=== PATIENT | male | born 1935 | race Caucasian/White ===

== ENCOUNTER 2017-10-22 21:32 | Inpatient (IN) | payer MEDICARE, BC ==
[~2017-10-22] VITALS: Ht 172.7 cm; Wt 99.8 kg
[~2017-10-22 21:32] MED LIST: ASPIRIN EC81 MG PO; BENICAR HCT 401 EAC1 PO; CIALIS5 MG PO; CRESTOR10 MG PO; FERROUS SULFAT325 MG PO; FLAGYL250 MG PO; GLYBURID-METFO1 EAC3 PO; GLYBURIDE; LEVAQUIN500 MG PO; LYRICA75 MG PO; MULTI-VITAMIN1 EACH PO; Z.0.CRESTOR5 MG; Z.0.CRESTOR5 MG PO; Z.2.METFORMIN HCL500 PO; [UNRECOGNIZED DRUG - OTHER] PO
[2017-10-22 21:51] LABS: BASOPHILS % 0.1 % (0.0-1.0); HEMATOCRIT 40.8 % (38.2-49.6); HEMOGLOBIN 13.8 g/dL (14.0-18.0); LYMPHOCYTES # (AUTO) 1.2 (1.0-3.2); LYMPHOCYTES % 16.6 % (18.0-39.1); MEAN CORPUSCULAR HEMOGLOBIN 30.7 pg (28-32); MEAN CORPUSCULAR HGB CONC 33.8 g/dL (31-35); MEAN CORPUSCULAR VOLUME 90.7 fL (81-99); MONOCYTES # (AUTO) 0.7 (0.2-0.8); MONOCYTES % 9.9 % (4.4-11.3); NEUTROPHILS # (AUTO) 5.1 (2.1-6.9); NEUTROPHILS % 72.8 % (38.7-80.0); PLATELET COUNT 158 x10e3/uL (140-360); RED CELL DISTRIBUTION WIDTH 13.1 % (11.7-14.4)
[2017-10-22 21:58] LABS: INR 1.3; PROTHROMBIN TIME 15.2 seconds (11.9-14.5)
[2017-10-22 21:59] LABS: PARTIAL THROMBOPLASTIN TIME 30.3 seconds (23.8-35.5)
[2017-10-22 22:09] LABS: ALBUMIN 3.7 g/dL (3.5-5.0); ANION GAP 18.2 mmol/L (8-16); CALCIUM 9.8 mg/dL (8.4-10.2); CREATININE, SERUM 2.82 mg/dL (0.72-1.25); POTASSIUM 4.2 mmol/L (3.5-5.1)
[2017-10-22] MEDS ORDERED: POTASSIUM CHLO10 ME1 PO (22:13)
[2017-10-22] MEDS ORDERED: VICTOZA 2-0.6 MG/0.1 (22:13)
[2017-10-22] MEDS ORDERED: BETAMETHASONE D15 GM (22:13)
[2017-10-22] MEDS ORDERED: GABAPENTIN600 MG PO (22:13)
[2017-10-22] MEDS ORDERED: TRESIBA (22:13)
[2017-10-22] MEDS ORDERED: FUROSEMIDE40 MG PO (22:13)
[2017-10-22 22:15] LABS: CREATINE KINASE MB 2.2 ng/mL (0-5.0)
[2017-10-22] MEDS ORDERED: SODIUM CHLORIDE 0.9% 250ML 250 ML IV ONE (22:45)
--- NOTE | 2017-10-22 23:35 | Diagnostic Imaging Report ---
EXAMINATION: CHEST SINGLE (PORTABLE) INDICATION: Weakness COMPARISON: 10/01/2016 CT of the chest FINDINGS: TUBES and LINES: None. LUNGS: Lungs are not well inflated. Calcified granuloma in the right mid lung There is no evidence of pneumonia or pulmonary edema. PLEURA: No pleural effusion or pneumothorax. HEART AND MEDIASTINUM: The cardiomediastinal silhouette is unremarkable. BONES AND SOFT TISSUES: No acute osseous lesion. Soft tissues are unremarkable. UPPER ABDOMEN: No free air under the diaphragm. IMPRESSION: No acute thoracic abnormality. Signed by: Dr. Mehdi Saucedo M.D. on 10/22/2017 11:31 PM
[2017-10-22] MEDS ORDERED: DEXTROSE 50% SYRINGE 50 ML IV PRN (23:45)
[2017-10-22] MEDS ORDERED: SODIUM CHLORIDE 0.9% 1000ML 1,000 ML IV ONE (23:45)
[2017-10-23] VITALS (16 sets, daily range): BP systolic 97–172; BP diastolic 46–119
[2017-10-23 05:53] LABS: HEMOGLOBIN 13.3 g/dL (14.0-18.0)
[2017-10-23 06:18] LABS: BILIRUBIN,URINE NEGATIVE (NEGATIVE); CLARITY,URINE CLEAR (CLEAR); COLOR,URINE YELLOW (YELLOW); KETONES,URINE NEGATIVE (NEGATIVE); LEUKOCYTE ESTERASE ,URINE NEGATIVE (NEGATIVE); NITRITE,URINE NEGATIVE (NEGATIVE); PROTEIN,URINE DIPSTICK TRACE (NEGATIVE); URINE UROBILINOGEN 0.2 mg/dL (0.2 - 1)
[2017-10-23 06:27] LABS: RBC,URINE 0-5 /HPF (0-5); WBC,URINE (MAN) 0-5 /HPF (0-5)
[2017-10-23 06:27] LABS: ALBUMIN 3.5 g/dL (3.5-5.0); ALBUMIN/GLOBULIN RATIO 0.9 (0.8-2.0); ANION GAP 17.2 mmol/L (8-16); CALCIUM 9.7 mg/dL (8.4-10.2); CREATININE, SERUM 2.28 mg/dL (0.72-1.25); POTASSIUM 4.2 mmol/L (3.5-5.1)
[2017-10-23 06:28] LABS: BACTERIA,URINE FEW /HPF; EPITHELIAL CELLS,URINE FEW /LPF; HYALINE CASTS 0-1 (0-1)
[2017-10-23] MEDS: INSULIN REGULAR, HUMAN 100 UNIT/1 ML 3ML VIAL SQ SCH ×2 (07:30→11:30)
[2017-10-23] MEDS ORDERED: FUROSEMIDE 40 MG TAB PO SCH (09:00)
[2017-10-23] MEDS ORDERED: SIMVASTATIN 20 MG TAB PO SCH (09:00)
[2017-10-23] MEDS ORDERED: POTASSIUM CHLORIDE 10MEQ EA PO SCH (09:00)
[2017-10-23] MEDS ORDERED: PREGABALIN 75 MG CAP PO SCH (09:00)
[2017-10-23] MEDS ORDERED: OLMESARTAN 20 MG TAB PO SCH (09:00)
[2017-10-23] MEDS ORDERED: HYDROCHLOROTHIAZIDE 25 MG TAB PO SCH (09:00)
[2017-10-23] MEDS ORDERED: HYDROMORPHONE 2MG/ML 2 MG/ML ML IV ONE (09:20)
[2017-10-23] MEDS: SODIUM CHLORIDE 0.9% 1000ML 1,000 ML IV SCH ×3 (10:10→22:23)
[2017-10-23] MEDS ORDERED: DIATRIZOATE MEGL/DIATRIZOA SOD 30 ML BTL PO ONE (10:13)
[2017-10-23] MEDS ORDERED: HYDROMORPHONE 1MG/1ML INJ IV ONE (10:25)
--- NOTE | 2017-10-23 12:27 | Consultation ---
DATE OF CONSULTATION: October 23, 2017 RENAL CONSULTATION REASON FOR CONSULTATION: Chronic kidney disease. ADMITTING PHYSICIAN: Dr. Carvalho. HISTORY OF PRESENT ILLNESS: An 82-year-old male with history of hypertension and diabetes presented to [facility] on October 22, 2017, for rectal bleeding. The patient is a poor historian, and history is taken from medical record as well as from him. Patient denies having any history of kidney disease in the past. He does have a long history of diabetes complicated by neuropathy and possibly retinopathy. Patient denies taking any [id number] NSAIDs. REVIEW OF SYSTEMS: As above. Some generalized weakness. No chest pain, no shortness of breath, no swelling. No abdominal pain. All other systems negative. PAST MEDICAL HISTORY 1. Diabetes complicated by peripheral neuropathy. 2. Hypertension. 3. Bladder cancer. 4. 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 PAST SURGICAL HISTORY: Craniotomy due to intracranial hemorrhage. SOCIAL HISTORY: Smokes hookah. No alcohol, no IV drugs. FAMILY HISTORY: No family history of kidney disease. ALLERGIES: NO KNOWN DRUG ALLERGIES. CURRENT MEDICATIONS: See list. Includes Lasix, insulin, simvastatin. VITAL SIGNS: Blood pressure 140/64, pulse 103, respiratory rate 19, temperature 97.3. PHYSICAL EXAMINATION GENERAL: No apparent distress. HEENT: Oropharynx clear. No scleral icterus. No papilledema. NECK: Supple. No elevation of jugular venous pressure. No lymphadenopathy. CHEST: Clear to auscultation anteriorly bilaterally. CARDIOVASCULAR: Regular rhythm. No murmurs, rubs or gallops. ABDOMEN: Soft. Positive bowel sounds. No tenderness, no rebound. EXTREMITIES: No edema, no clubbing, no cyanosis. SKIN: Warm. LABS: White count 7.06, hemoglobin 13.8, hematocrit 40.8, platelets 158. Sodium 137 up from 134, chloride 101, CO2 23, BUN 60, creatinine 2.28 down from 2.82, estimated GFR of 28, blood glucose 258. Creatinine October 17, 2016, was 1.36. IMAGING: Chest x-ray clear. ASSESSMENT AND PLAN 1. Acute kidney injury on chronic kidney disease stage 3, suspect secondary to volume depletion and ATN. Will rule out urinary retention. Patient has a history of bladder cancer and was noted in ER was having difficulty urinating. Will check renal ultrasound, hold furosemide, check urine studies, avoid all nephrotoxic medications, and will do further testing as necessary. 2. Euvolemic to dry on exam. Hold Lasix as above. 3. Electrolytes acceptable, hyponatremia improved. 4. Anemia due to rectal bleeding. Follow serial hemoglobins. Pt going for CT scan 5. Weakness secondary to above. Job#: [id number] EV MTDD
[2017-10-23] MEDS ORDERED: HYDROMORPHONE 20MG/ NS 100ML IV PRN (12:30)
[2017-10-23] MEDS ORDERED: HYDROMORPHONE 2MG/ML 2 MG/ML ML IV PRN ×2 (12:45→15:45)
--- NOTE | 2017-10-23 13:04 | Consultation ---
DATE OF CONSULTATION: October 23, 2017 CARDIAC CONSULTATION REASON FOR CONSULTATION: Aortic stenosis, debility, GI bleed, chronic renal insufficiency and multiple medical health problems. HISTORY: This is an 82-year-old gentleman who has known hypertension, diabetes mellitus, prior history of CVA with left body weakness with reasonable recovery, repeated GI bleed from small intestine. Patient not doing well for the last 2 weeks, becoming very weak, lethargic, and obtunded. He was seen by Dr. Carvalho in his office, and he was sent to be seen in my office for aortic heart murmur. Patient seen and evaluated differently. He was obtunded and weak. He refused admission. However, later on that night he was more weak and his abdomen became more distended with black stool, and his was having difficulty taking care of him at home. He came to the emergency room, admitted for further management. Cardiac consultation is obtained. Patient's cardiac symptoms are class 3 shortness of breath on exertion, no definite angina. There is sleepiness but no definite sleep apnea. There is no orthopnea, no paroxysmal nocturnal dyspnea, no syncope, no presyncope. His other problems including an episode of hypoglycemia recently and more importantly are his GI symptoms consistent. His main issue is his GI symptoms with patient having bloating, indigestion and melena. There is no nausea, no vomiting. His other issue also is quite a lot he is forgetful. CURRENT HOME MEDICATIONS 1. Benicar hydrochlorothiazide 40/25 one tablet a day. 2. Lasix 40 mg a day. 3. Potassium chloride 8 mEq a day. 4. Crestor 10 mg a day. 5. Victoza 18 mg daily. 6. Tresiba 30 units daily. 7. Lyrica 300 mg twice a day. ALLERGIES: NONE. PAST MEDICAL HISTORY 1. Diabetes mellitus with severe peripheral neuropathy. 2. History of bladder cancer status post prior treatment by Dr. Jeter in the past. 3. 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 4. Hypertension. 5. Hypercholesterolemia. 6. Repeated GI bleed from small intestine. 7. Subdural hematoma surgery in 2000. FAMILY HISTORY: Father of old age at age 93. One brother and one sister of cancer. SOCIAL HISTORY: He is . He stopped smoking in 1989. He is social alcohol drinker. He is self-employed. REVIEW OF SYSTEMS GENERAL: Failure to thrive. Weakness. Poor exercise tolerance. HEENT: Remarkable for decreased hearing and he does have decreased vision in the left eye. PULMONARY: Moderate shortness of breath on exertion. No pleuritic chest pain. CARDIAC: As per above. GI: As per above. HEMATOLOGY: Easy bruising but no bleeding. : No hematuria, no dysuria. MUSCULOSKELETAL: Back pain, knee pain. NEUROLOGICAL: Severe peripheral neuropathy. Left body weakness. Forgetful. PHYSICAL EXAM VITAL SIGNS: Height of 5 feet 8 inches, weight of 215 pounds. Blood pressure 100/60, heart rate of 90, respiratory rate of 18, afebrile. HEENT: Pupils are reactive. Decreased vision in the left eye. NECK: No elevation of jugular venous pulsation. CHEST: Decreased lung expansion, decreased air entry. HEART: Aortic heart murmur grade III/. ABDOMEN: Distended. Bowel sounds are sluggish. EXTREMITIES: No cyanosis, no clubbing, no edema. NEUROLOGIC: Very forgetful. IMPRESSION AND PLAN 1. Admission with gastrointestinal issue. 2. Aortic stenosis. 3. Hypertension. 4. Diabetes mellitus with complication. 5. Chronic kidney disease stage 4. 6. Forgetfulness. Cardiac gibbs, we will stop the diuretics. We will start IV fluid. We will get an echocardiogram. We will observe his H and H and volume status. We will follow this patient's progression with you and would like to thank you for your kind referral. Job#: [id number]
--- NOTE | 2017-10-23 13:06 | Diagnostic Imaging Report ---
ADDENDUM #1 ADDENDUM: IMAGES FROM A DIFFERENT PATIENT WERE SENT INITIALLY TO THE PATIENT'S CHART AND WERE INTERPRETED. HOWEVER, SUBSEQUENT TO THE REPORT, IT WAS DETERMINED THAT THE WRONG PATIENT'S IMAGES WERE SENT. THE TECHNOLOGIST WAS NOTIFIED. THE CORRECT IMAGES WERE SUBSEQUENTLY SENT AND THE FOLLOWING IS THE CORRECT REPORT. PLEASE DISREGARD THE PRIOR REPORT. EXAM: CT Abdomen and Pelvis WITHOUT contrast INDICATION: Rectal bleeding COMPARISON: CT abdomen pelvis 08/28/2014. TECHNIQUE: Abdomen and pelvis were scanned utilizing a multidetector helical scanner from the lung base to the pubic symphysis without administration of IV contrast. Absence of intravenous contrast decreases sensitivity for detection of focal lesions and vascular pathology. Coronal and sagittal reformations were obtained. Routine protocol was performed. IV CONTRAST: None. ORAL CONTRAST: Gastrografin RADIATION DOSE: Total DLP: 767.5 mGy*cm Estimated effective dose: (DLP x 0.015 x size factor) mSv COMPLICATIONS: None FINDINGS: LINES and TUBES: None. LOWER THORAX: Coronary atherosclerosis and aortic valve calcifications. HEPATOBILIARY: No focal hepatic lesions. No biliary ductal dilation. Left portal venous gas is noted. GALLBLADDER: No radio-opaque stones or sludge. No wall thickening. SPLEEN: No splenomegaly. Splenic granulomas are noted. PANCREAS: No focal masses or ductal dilatation. ADRENALS: Bilateral adrenal nodules which measures less than 10 HU, consistent with adrenal adenomas. KIDNEYS/URETERS: Mild nonspecific bilateral perinephric stranding. Bilateral simple renal cysts, measuring 2.7 cm in the left upper pole kidney and 2.8 cm in the right lower pole kidney. No evidence of hydronephrosis or stones. GI TRACT: There is pneumatosis within the distal ileum on series 2, image 62. Mild wall thickening involving the rectum, which is undistended. No evidence of bowel obstruction. There are diverticula within the colon without evidence of diverticulitis. Appendix is normal. PELVIC ORGANS/BLADDER: Unremarkable bladder. Prostate gland is enlarged measuring up to 5.9 cm. LYMPH NODES: No lymphadenopathy. VESSELS: Extensive atherosclerotic calcifications of the abdominal aorta and branch vessels. Severe calcified plaque in the SMA origin. Air within the mesenteric venous system is noted on series 2, image 53. There is also air in the portal venous system on the left, on series 2, image 12. PERITONEUM / RETROPERITONEUM: No free air or fluid. BONES/SOFT TISSUES: No acute bony findings. Bilateral fat containing inguinal hernias. IMPRESSION: Ileal pneumatosis with air in the mesenteric system and left portal vein, suggestive of ischemic or infectious etiology. Note is made of severe calcified plaque in the SMA, incompletely evaluated in the absence of IV contrast, which suggests a potential ischemic etiology. A CTA may be considered for further evaluation. Distal sigmoid colon and rectal wall thickening which may partially be due to underdistention. Given the reported history of rectal bleeding, the findings could reflect proctitis. Above critical findings were discussed with Dr. Matthew Carvalho on 10/23/17 at 1408 PM. Signed by: Dr. Cailin Andujar MD on 10/23/2017 2:13 PM ORIGINAL REPORT EXAM: CT Abdomen and Pelvis WITHOUT contrast INDICATION: Abdominal pain COMPARISON: None. TECHNIQUE: Abdomen and pelvis were scanned utilizing a multidetector helical scanner from the lung base to the pubic symphysis without administration of IV contrast. Absence of intravenous contrast decreases sensitivity for detection of focal lesions and vascular pathology. Coronal and sagittal reformations were obtained. Routine protocol was performed. IV CONTRAST: None. ORAL CONTRAST: Water RADIATION DOSE: Total DLP: 156 mGy*cm Estimated effective dose: (DLP x 0.015 x size factor) mSv COMPLICATIONS: None FINDINGS: LINES and TUBES: None. LOWER THORAX: Unremarkable HEPATOBILIARY: No focal hepatic lesions. No biliary ductal dilation. GALLBLADDER: No radio-opaque stones or sludge. No wall thickening. SPLEEN: No splenomegaly. PANCREAS: No evidence of pancreatic ductal dilatation or focal masses although evaluation is limited in the absence of IV contrast. ADRENALS: No adrenal nodules KIDNEYS/URETERS: There is a 6 mm left proximal ureteral stone associated mild left hydronephrosis. There are multiple punctate bilateral renal stones. The largest stones in the left kidney measure 5 mm and 4 mm in the left lower pole. The largest stone on the right measures 3 mm in the upper pole. Bilateral medullary nephrocalcinosis is noted. There is a 1.5 cm simple renal cyst in the right mid pole kidney. GI TRACT: No abnormal distention, wall thickening, or evidence of bowel obstruction. PELVIC ORGANS/BLADDER: Unremarkable. LYMPH NODES: No lymphadenopathy. VESSELS: Scattered atherosclerotic aortic calcifications. PERITONEUM / RETROPERITONEUM: No free air or fluid. BONES: No acute bony findings. IMPRESSION: A 6 mm proximal left ureteral stone with associated mild left hydronephrosis. Numerous other bilateral non-obstructive renal stones measuring up to 5 mm on the left and 3 mm on the right. Medullary nephrocalcinosis, with a differential including hyperparathyroidism, medullary sponge kidney, and hypervitaminosis D among other etiologies. Signed by: Dr. Cailin Andujar MD on 10/23/2017 1:02 PM
[2017-10-23] MEDS ORDERED: MIDAZOLAM HCL 2 MG/2 ML VIAL ONE (13:28)
[2017-10-23] MEDS ORDERED: FENTANYL CITRATE/PF 100MCG/2 ML INJ ONE (13:28)
[2017-10-23] MEDS ORDERED: CITRATE OF MAGNESIA 300ML BOTTLE PO ONE ×2 (13:50→14:30)
[2017-10-23] MEDS: BISACODYL 5 MG TAB EC PO SCH ×2 (14:13→14:30)
[2017-10-23] MEDS ORDERED: DEXTROSE 50% SYRINGE 50 ML IV PRN (14:15)
[2017-10-23] MEDS ORDERED: LIDOCAINE HCL 2% LOCAL INJ 5 ML SDV VIAL INJ ONE (14:25)
[2017-10-23] MEDS ORDERED: ROCURONIUM BROMIDE 10 MG/ML 5ML VIAL ONE (14:25)
[2017-10-23] MEDS ORDERED: PROPOFOL IV EMULSION 10 MG/ML 20 ML VIAL ONE (14:25)
[2017-10-23] MEDS ORDERED: SEVOFLURANE INHAL SOLN 250 ML PEN BTL ONE (14:25)
[2017-10-23] MEDS ORDERED: SUCCINYLCHOLINE 200 MG/10 ML SYR ONE (14:25)
[2017-10-23] MEDS ORDERED: PHENYLEPHRINE HCL 1% 10 MG/ML VIAL ONE (14:26)
[2017-10-23] MEDS ORDERED: ETOMIDATE 2 MG/ML 10 ML INJ IV ONE (14:26)
[2017-10-23 15:15] LABS: FREE T4 (FREE THYROXINE) 0.96 ng/dL (0.9-1.8); THYROID STIMULATING HORMONE 0.933 uIU/mL (0.350-4.940)
[2017-10-23] MEDS ORDERED: SODIUM CHLORIDE 0.9% 100 ML 100 ML ONE ×2 (15:30→19:37)
[2017-10-23] MEDS ORDERED: HEPARIN SOD/SOD CHLORIDE 1,000 ML ONE (15:34)
[2017-10-23] MEDS: PIPERACILLIN/TAZO 2.25 GM 50 ML IV SCH ×2 (15:35→22:23)
--- NOTE | 2017-10-23 15:45 | Diagnostic Imaging Report ---
EXAM: Renal Ultrasound INDICATION: Rectal bleeding, CKD COMPARISON: CT abdomen and pelvis 10/23/2017 and 08/28/2014 TECHNIQUE: Transverse and longitudinal images of the kidneys and bladder were obtained. FINDINGS: Right Kidney: Length: 11.5 cm Appearance: Normal echogenicity. Collecting system: No hydronephrosis Stones: None Cyst/Mass: 3.5 cm anechoic cyst in the inferolateral aspect of the right kidney, previously measured 2.5 cm but no significantly changed since 2014. Left Kidney: Length: 13 cm Appearance: Normal echogenicity. Collecting system: No hydronephrosis Stones: None Cyst/Mass: Few bilateral renal cysts with the larger in the upper pole measuring up to 2.8 cm, unchanged. Bladder: Moderate residual urine within the urinary bladder. Prevoid volume 390.4 cc, postvoid volume 182.3 cc. The prostate is mildly prominent measuring 4.7 x 2.2 x 3.9 cm. IMPRESSION: Stable simple bilateral renal cysts. No hydronephrosis. Moderate residual postvoiding volume in the urinary bladder. Mildly enlarged prostate. Signed by: Dr. Cintia Burdick M.D. on 10/23/2017 3:42 PM
[2017-10-23 16:05] LABS: BASOPHILS % 0.2 % (0.0-1.0); HEMATOCRIT 41.6 % (38.2-49.6); HEMOGLOBIN 13.9 g/dL (14.0-18.0); LYMPHOCYTES # (AUTO) 3.1 (1.0-3.2); LYMPHOCYTES % 23.6 % (18.0-39.1); MEAN CORPUSCULAR HEMOGLOBIN 31.3 pg (28-32); MEAN CORPUSCULAR HGB CONC 33.4 g/dL (31-35); MEAN CORPUSCULAR VOLUME 93.7 fL (81-99); MONOCYTES # (AUTO) 1.4 (0.2-0.8); MONOCYTES % 10.7 % (4.4-11.3); NEUTROPHILS # (AUTO) 8.6 (2.1-6.9); NEUTROPHILS % 64.8 % (38.7-80.0); PLATELET COUNT 190 x10e3/uL (140-360); RED BLOOD COUNT 4.44 x10e6/uL (4.3-5.7); RED CELL DISTRIBUTION WIDTH 13.1 % (11.7-14.4)
--- NOTE | 2017-10-23 16:05 | Diagnostic Imaging Report ---
Exam: Brain MRI without IV contrast History: Weakness Comparison studies: Brain MRI 06/02/2016, 09/20/2014 and 12/08/2011 Technique: Sagittal and axial T2 FS, axial DWI, axial T2*GRE, axial T1 FLAIR and axial coronal T2 FLAIR. Intravenous contrast: None Findings: Several pulse sequences are somewhat limited by artifacts related to patient motion. Scalp: Normal in signal. No masses. Bone marrow: Normal in signal intensity. Brain sulci: Mildly prominent.. Ventricles: Compensatory dilatation of the posterior body, atria, occipital horn of the right lateral ventricle, unchanged. No hydrocephalus . Extra axial spaces: Unchanged 4.0 x 3.0 cm right middle cranial fossa arachnoid cyst. Parenchyma: The inferior cerebellum lies outside imaged [id number] on the DWI sequence cannot be assessed. No abnormal restricted diffusion in the remaining brain parenchyma. No new increased T2 FLAIR signal changes in the right cerebellum to suggest new ischemic changes. Old right inferior parietal-occipitotemporal insult with encephalomalacia which was acute on 07/17/2011 (involves primarily right inferior parietal lobule, right superior middle temporal gyri, right lateral occipitotemporal and posterior subinsular region, superior and middle occipital gyri). Unchanged small chronic focal hemorrhagic cortical insult regional to the posterior right superior frontal sulcus chronic lacunar infarct in the right frontal centrum semiovale. Scattered and confluent-periventricular T2 FLAIR hyperintensities are chronic small vessel ischemic changes. Small chronic cortical/subcortical insults in the bilateral cerebellar hemispheres and in the left parietal lobe are unchanged.. Suprasellar region: No abnormalities. Craniocervical junction: Patent foramen magnum. No Chiari malformation. Vessels: Normal flow-voids in the arteries and sinuses. IMPRESSION: No acute intracranial abnormalities. No significant changes from the previous brain right 06/02/2016. Chronic findings: 1. Old right parietal-occipitotemporal infarct with encephalomalacia as well as multiple additional multiple chronic cortical/subcortical supratentorial infratentorial insults as described. 2. Mild chronic microvascular ischemic changes. 3. Incidental unchanged right middle cranial fossa arachnoid cyst. Signed by: Dr. Harley Broussard M.D. on 10/23/2017 4:01 PM
[2017-10-23] MEDS ORDERED: NALOXONE HCL INJ 0.4 MG/ML AMP IV ONE (16:19)
--- NOTE | 2017-10-23 16:22 | Consultation ---
DATE OF CONSULTATION: October 23, 2017 ENDOCRINE CONSULTATION This is a patient of Dr. Jorge Carvalho. Thank you very much for referring this patient. This is an 82-year-old white male gentleman, who was referred to me for evaluation of uncontrolled diabetes mellitus. The patient reportedly is a known diabetic for almost 8 to 10 years. Recently, he was started on Tresiba 30 units at bedtime and Victoza. He came to the hospital with history of rectal bleeding, and he is being evaluated for the same. The patient also has a history of hypertension. He had some craniotomy done in the past. PHYSICAL EXAMINATION GENERAL: Today, the patient is alert and awake, a little bit apprehensive. He is moderately overweight. VITALS: His heart rate is around 78 and blood pressure 140/80 mmHg. HEENT: Examination is essentially unremarkable. Thyroid is palpable. Clinically, he is near euthyroid. CHEST: Bilateral vesicular breathing. No rales heard. CARDIAC: Normal 1st and 2nd heart sounds. There is no 3rd or 4th heart sound. Ejection systolic murmur, grade 2/6. EXTREMITIES: The patient has evidence of diabetic sensorimotor neuropathy in both lower extremities. The patient also has renal insufficiency. The blood sugars have been 311 to 250 range. CLINICAL IMPRESSION 1. Diabetes mellitus, type 2, uncontrolled with complications. 2. Hypertension. 3. Kidney stones. 4. Rectal bleeding. PLAN: At this time, do a glycohemoglobin and thyroid function test, adjust the insulin dose and hold the Victoza for now. Thanks for referring this patient. I will be following this patient with you. Job#: [id number]
[2017-10-23 16:25] LABS: ABG HCO3 22 mmol/L (23-28); ABG PCO2 54 mmHg (41-51); ABG PH 7.22 (7.31-7.41); ABG PO2 135 mmHg (80-105)
[2017-10-23 16:26] LABS: ALBUMIN 3.7 g/dL (3.5-5.0); ALBUMIN/GLOBULIN RATIO 0.9 (0.8-2.0); ANION GAP 20.8 mmol/L (8-16); CALCIUM 9.8 mg/dL (8.4-10.2); CREATININE, SERUM 2.28 mg/dL (0.72-1.25); POTASSIUM 4.8 mmol/L (3.5-5.1)
[2017-10-23] MEDS ORDERED: INSULIN LISPRO 100 UNIT/1 ML 3ML VIAL SQ SCH (16:30)
[2017-10-23] MEDS ORDERED: INSULIN REGULAR, HUMAN 100 UNIT/1 ML 3ML VIAL SQ SCH (16:30)
--- NOTE | 2017-10-23 17:05 | Diagnostic Imaging Report ---
EXAM: CTA OF THE ABDOMINAL AORTA AND PELVIC ARTERIES INDICATION: \S\ischemia \[id number] \S\[id number] COMPARISON: CT abdomen and pelvis 10/23/2017 and renal ultrasound 10/23/2017. CT abdomen pelvis 08/28/2014 TECHNIQUE: Multi-detector CT technology was employed. CTA of the abdomen and pelvis was performed after the administration of IV contrast. IV CONTRAST: 100 mL of Isovue-370 ORAL CONTRAST: None COMPLICATIONS: None RADIATION DOSE: Total DLP: 730.8 mGy*cm Estimated effective dose: (DLP x 0.015 x size factor) mSv CTDIvol has been reviewed. It is below the limits set by the Radiation Protocol Committee (RPC). For optimization of anatomic evaluation, multiplanar reconstruction, maximum intensity projections, and advanced 3-D off-line postprocessing were performed on a dedicated stand-alone workstation under the direct supervision of the interpreting physician. FINDINGS: Potential study limitations: None. VASCULAR WITH ADVANCED 3-D OFF-LINE POSTPROCESSING: The abdominal aorta is small in the infrarenal segment and associated with diffuse circumferential moderate calcifications without significant obstruction but with a small lumen. Minimal luminal diameter is 1.3 cm at the bifurcation. There is no acute aortic pathology. The abdominal aorta measures: 2.5 cm at the supramesenteric segment 2.4 cm at the mesenteric segment 2.2 cm at the renal segment 1.9 cm at the mid infrarenal segment 1.3 cm at the aortic bifurcation. 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 The splenic artery is widely patent. 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 There is also diffuse calcified and noncalcified atherosclerotic changes of the distal SMA branches, which are very tiny adjacent to the small and large bowel. When compared to CT abdomen and pelvis from 2014, findings have progressed. The celiac axis and [place] are patent with associated mild nonobstructing atherosclerotic calcifications. There are 2 right and single left renal arteries which appear patent with associated atherosclerotic calcifications. This results in moderate to severe stenosis of the proximal left renal artery. The pelvic arteries are normal in caliber and contour. There are moderate to severe atherosclerotic changes of the pelvic arteries resulting in moderate right and severe left stenoses of the common iliac arteries. External and internal iliac arteries are patent with associated no significant obstructing calcified plaques. There is severe stenosis of the right common and visualized proximal superficial femoral artery. There appears to be a stent in place on the right. Mild stenosis of the distal common and proximal left superficial femoral arteries. 0.9 cm at the right common iliac artery 0.8 cm at the right external iliac artery 1.1 cm at the left common iliac artery 0.8 cm at the left external iliac artery LOWER CHEST: Unremarkable. ABDOMEN: The liver, gallbladder, spleen, and pancreas appear normal. Unchanged bilateral adrenal gland nodules likely adenomas, measuring up to 2.1 cm on the left. Few bilateral renal cysts. There is no abnormal mass or hydronephrosis. PELVIS: There is no significant retroperitoneal adenopathy. No free fluid or free air within the abdomen or pelvis. Again noted, there is diffuse pneumatosis within the distal ileum extending into the mesenteric vein and left main portal vein. There are also wall thickening of a few loops of jejunum in the left abdomen, better seen on series 3, image 68 and pelvis on image 132. Mild wall thickening of the rectum may be over estimated by poor distention. No wall thickening of the colon. Scattered diverticulosis throughout the sigmoid colon without diverticulitis. The urinary bladder appears normal. BONES: Advanced degenerative changes of the lumbar spine. IMPRESSION: 1. 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 Findings have progressed since 2015. 2. 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 3. Persistent pneumatosis of the terminal ileum as well as diffuse wall thickening of multiple loops of jejunum in the left abdomen. 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 Less likely appears to relate to infectious process given the severity of the vascular disease. 4. Diffuse atherosclerotic calcifications of the abdominal aorta without aneurysm, resulting in minimal luminal diameter of 1.3 cm at the bifurcation. No acute abdominal aortic pathology. 5. Moderate right and severe left proximal common iliac artery stenosis due to calcified plaques. Findings were discussed with Dr. Calle on 10/23/2017 at 4:45 PM. Signed by: Dr. Cintia Burdick M.D. on 10/23/2017 5:02 PM
[2017-10-23] MEDS ORDERED: NOREPINEPHRINE 8 MG/D5W 250 ML 250 ML IV SCH (17:15)
[2017-10-23] MEDS: METRONIDAZOLE 500MG/NS 100ML 100 ML IV SCH (18:00)
[2017-10-23] MEDS ORDERED: IOPAMIDOL 370 MG/ML 200 ML INFUS..BTL INJ ONE (19:37)
[2017-10-23] MEDS ORDERED: HYDROMORPHONE 1MG/1ML INJ IV PRN (20:15)
[2017-10-23] MEDS ORDERED: PROPOFOL IV EMULSION 10MG/ML 100 ML ONE (20:18)
[2017-10-23] MEDS ORDERED: ENOXAPARIN SOD INJ 60 MG/0.6 ML SYR SC NR (20:24)
[2017-10-23 20:51] LABS: BASOPHILS % 0.3 % (0.0-1.0); HEMATOCRIT 38.1 % (38.2-49.6); HEMOGLOBIN 12.7 g/dL (14.0-18.0); LYMPHOCYTES # (AUTO) 0.4 (1.0-3.2); LYMPHOCYTES % 11.6 % (18.0-39.1); MEAN CORPUSCULAR HEMOGLOBIN 30.9 pg (28-32); MEAN CORPUSCULAR HGB CONC 33.3 g/dL (31-35); MEAN CORPUSCULAR VOLUME 92.7 fL (81-99); MONOCYTES # (AUTO) 0.5 (0.2-0.8); MONOCYTES % 13.5 % (4.4-11.3); NEUTROPHILS # (AUTO) 2.8 (2.1-6.9); NEUTROPHILS % 73.8 % (38.7-80.0); PLATELET COUNT 135 x10e3/uL (140-360); RED BLOOD COUNT 4.11 x10e6/uL (4.3-5.7); RED CELL DISTRIBUTION WIDTH 13.1 % (11.7-14.4)
[2017-10-23] MEDS: PROPOFOL IV EMULSION 10MG/ML 100 ML IV PRN (21:00)
[2017-10-23] MEDS ORDERED: INSULIN DETEMIR 100 UNIT/ML PEN SQ SCH (21:00)
--- NOTE | 2017-10-23 21:03 | Diagnostic Imaging Report ---
EXAMINATION: CHEST SINGLE (PORTABLE) COMPARISON: Chest x-ray 10/22/2017 INDICATION: Intubated DISCUSSION: Frontal view of the chest obtained at 2046 hours. HEART AND MEDIASTINUM: Stable cardiomegaly and aortic ectasia LINES: Endotracheal tube terminates 3 to 4 cm above the chen. Enteric tube extends past the diaphragm. Right IJ catheter terminates in the SVC. LUNGS: Low lung volumes. Increasing right basilar atelectasis. No infiltrates in the left lung. PLEURA: No pleural effusion or pneumothorax. BONES AND SOFT TISSUES: No focal osseous lesion. The soft tissues are normal. IMPRESSION: Support devices as described above. No pneumothorax. Low lung volumes and right basilar atelectasis. Signed by: Dr. Sherman Herndon MD on 10/23/2017 8:59 PM
[2017-10-23 21:08] LABS: ALBUMIN/GLOBULIN RATIO 0.9 (0.8-2.0); ANION GAP 18.4 mmol/L (8-16); CALCIUM 8.5 mg/dL (8.4-10.2); CREATININE, SERUM 2.03 mg/dL (0.72-1.25); POTASSIUM 4.4 mmol/L (3.5-5.1)
[2017-10-23] MEDS: SODIUM CHLORIDE 0.9% 250ML IRRIG IR SCH (21:28)
[2017-10-23 21:34] LABS: LYMPHOCYTES % (MANUAL) 18 % (19-48); METAMYELOCYTES % (MANUAL) 1 % (0-0); MONOCYTES % (MANUAL) 4 % (3.4-9.0); NEUTROPHILS % (MANUAL) 75 % (40-74); PLATELET ESTIMATE SLIGHTLY DECREASED; PLATELET MORPHOLOGY COMMENT NORMAL; RBC MORPHOLOGY COMMENT NORMAL
[2017-10-23 21:37] LABS: ABG HCO3 22 mmol/L (23-28); ABG PCO2 43 mmHg (41-51); ABG PH 7.32 (7.31-7.41); ABG PO2 313 mmHg (80-105)
[2017-10-23] MEDS: PANTOPRAZOLE 40 MG 10ML VIAL IV SCH (22:23)
[2017-10-24] VITALS (70 sets, daily range): BP systolic 80–198; BP diastolic 37–198
[2017-10-24] MEDS: SODIUM CHLORIDE 0.9% 250ML IRRIG IR SCH ×6 (00:17→20:44)
[2017-10-24] MEDS: INSULIN REGULAR, HUMAN 100 UNIT/1 ML 3ML VIAL SQ SCH ×4 (00:20→18:06)
[2017-10-24] MEDS ORDERED: PROPOFOL IV EMULSION 10MG/ML 100 ML ONE (00:27)
[2017-10-24] MEDS: METRONIDAZOLE 500MG/NS 100ML 100 ML IV SCH ×4 (00:41→18:00)
[2017-10-24] MEDS: PROPOFOL IV EMULSION 10MG/ML 100 ML IV PRN ×4 (02:00→22:05)
[2017-10-24] MEDS: SODIUM CHLORIDE 0.9% 1000ML 1,000 ML IV SCH ×5 (03:54→23:44)
[2017-10-24 04:47] LABS: BASOPHILS % 0.2 % (0.0-1.0); HEMATOCRIT 33.2 % (38.2-49.6); HEMOGLOBIN 11.2 g/dL (14.0-18.0); LYMPHOCYTES # (AUTO) 0.7 (1.0-3.2); LYMPHOCYTES % 14.7 % (18.0-39.1); MEAN CORPUSCULAR HEMOGLOBIN 30.8 pg (28-32); MEAN CORPUSCULAR HGB CONC 33.7 g/dL (31-35); MEAN CORPUSCULAR VOLUME 91.2 fL (81-99); MONOCYTES # (AUTO) 0.5 (0.2-0.8); MONOCYTES % 10.9 % (4.4-11.3); NEUTROPHILS # (AUTO) 3.5 (2.1-6.9); NEUTROPHILS % 73.6 % (38.7-80.0); PLATELET COUNT 164 x10e3/uL (140-360); RED BLOOD COUNT 3.64 x10e6/uL (4.3-5.7); RED CELL DISTRIBUTION WIDTH 13.2 % (11.7-14.4)
[2017-10-24 05:12] LABS: INR 1.53; PROTHROMBIN TIME 17.3 seconds (11.9-14.5)
[2017-10-24 05:13] LABS: PARTIAL THROMBOPLASTIN TIME 38.4 seconds (23.8-35.5)
[2017-10-24 05:21] LABS: ALBUMIN 2.6 g/dL (3.5-5.0); ALBUMIN/GLOBULIN RATIO 0.8 (0.8-2.0); ANION GAP 16.6 mmol/L (8-16); CALCIUM 8.3 mg/dL (8.4-10.2); CHOL/HDL RATIO 3.6 (3.9-4.7); CREATININE, SERUM 2.34 mg/dL (0.72-1.25); POTASSIUM 4.6 mmol/L (3.5-5.1)
[2017-10-24] MEDS ORDERED: ENOXAPARIN SOD INJ 60 MG/0.6 ML SYR SC ONE (05:26)
[2017-10-24] MEDS: PIPERACILLIN/TAZO 2.25 GM 50 ML IV SCH ×3 (05:37→21:33)
[2017-10-24 05:43] LABS: THYROID STIMULATING HORMONE 0.749 uIU/mL (0.350-4.940)
[2017-10-24 05:46] LABS: FERRITIN 163.56 ng/mL (21.81-274.66)
[2017-10-24 06:50] LABS: BAND NEUTROPHILS % (MANUAL) 9 %; LYMPHOCYTES % (MANUAL) 19 % (19-48); MONOCYTES % (MANUAL) 1 % (3.4-9.0); NEUTROPHILS % (MANUAL) 71 % (40-74); PLATELET ESTIMATE ADEQUATE; PLATELET MORPHOLOGY COMMENT NORMAL; RBC MORPHOLOGY COMMENT NORMAL
--- NOTE | 2017-10-24 08:54 | Diagnostic Imaging Report ---
EXAMINATION: CHEST SINGLE (PORTABLE) INDICATION: Intubated. Rectal bleeding. COMPARISON: Chest x-ray 10/23/2017 FINDINGS: AP view TUBES and LINES: Right IJ central line, endotracheal tube, nasogastric tube are unchanged. LUNGS: Lungs are not well inflated. Persistent mediastinal shift to the right. Left lung is clear. Right lung base atelectasis. There is no evidence of pneumonia or pulmonary edema. PLEURA: No pleural effusion or pneumothorax. HEART AND MEDIASTINUM: The cardiomediastinal silhouette is unremarkable. BONES AND SOFT TISSUES: No acute osseous lesion. Soft tissues are unremarkable. UPPER ABDOMEN: No free air under the diaphragm. IMPRESSION: 1. Stable tubes and lines. 2. Persistent low lung volumes especially the right lung with mediastinal shift to the right. Signed by: Dr. Jose Castillo M.D. on 10/24/2017 8:50 AM
[2017-10-24 12:17] LABS: HEMATOCRIT 32.3 % (38.2-49.6); HEMOGLOBIN 10.8 g/dL (14.0-18.0)
--- NOTE | 2017-10-24 16:57 | Progress Note ---
DATE: October 24, 2017 INTERNAL MEDICINE PROGRESS NOTE SUBJECTIVE: Patient is intubated and sedated right now. PHYSICAL EXAM VITAL SIGNS: Blood pressure 132/56, temperature 97.7, heart rate 92 per minute, respiratory rate 12 per minute, and oxygen saturation 100%. HEART: Shows regular rhythm. No murmur. No extra sounds. LUNGS: Show decreased breath sounds bilaterally. ABDOMEN: Soft. He got an incision. EXTREMITIES: Show no evidence of cyanosis, edema, or trauma. On the BMP, sodium 134, potassium 4.6, chloride 103, CO2 of 19, BUN 57, creatinine 2.34, and glucose 425. On the CBC, white blood count 4.70, hemoglobin 10.8, hematocrit 32.3, and platelet count 164,000. PT 17.3, INR 1.53, PTT 38.4. AST 16, ALT 15, total bilirubin 0.8, and alkaline phosphatase 34. FINAL IMPRESSION 1. Acute respiratory failure. 2. Ischemic bowel, status post right hemicolectomy. 3. Acute anemia secondary to gastric bleed. 4. Acute renal failure. 5. Septic shock. PLAN OF TREATMENT: We are going to continue ventilator support, continue sedation. In the meantime, continue Zosyn IV, continue Protonix 40 mg IV daily, continue with Dilaudid 1 mg q.3 hours as needed only for severe pain. Continue monitoring blood sugar q.6 hours. Continue normal saline at 200 mL an hour. Prognosis is guarded. Patient as I said is status post hemicolectomy. We are going to continue monitor hemoglobin and hematocrit which so far are stable. Continue monitor his blood sugar with sliding scale and provide with insulin as long as blood sugar is high. Patient is on normal saline right now. Job#: [id number] MAHOGANY
[2017-10-24] MEDS ORDERED: ENOXAPARIN SOD INJ 40 MG/0.4 ML SYR SC SCH (17:00)
[2017-10-24 17:31] LABS: ABG HCO3 22 mmol/L (23-28); ABG PCO2 37 mmHg (41-51); ABG PH 7.37 (7.31-7.41); ABG PO2 184 mmHg (80-105)
[2017-10-24 17:58] LABS: HEMATOCRIT 29.9 % (38.2-49.6)
[2017-10-24] MEDS ORDERED: INSULIN REGULAR, HUMAN 100 UNIT/1 ML 3ML VIAL SQ SCH (18:00)
[2017-10-24] MEDS: ENOXAPARIN SOD INJ 60 MG/0.6 ML SYR SC SCH (18:10)
[2017-10-24] MEDS: PANTOPRAZOLE 40 MG 10ML VIAL IV SCH (20:44)
[2017-10-25] VITALS (86 sets, daily range): BP systolic 91–148; BP diastolic 43–72
[2017-10-25] MEDS: METRONIDAZOLE 500MG/NS 100ML 100 ML IV SCH ×4 (00:03→17:56)
[2017-10-25] MEDS: SODIUM CHLORIDE 0.9% 250ML IRRIG IR SCH ×6 (00:31→20:41)
[2017-10-25 00:44] LABS: HEMATOCRIT 28.7 % (38.2-49.6); HEMOGLOBIN 9.7 g/dL (14.0-18.0)
[2017-10-25] MEDS: SODIUM CHLORIDE 0.9% 1000ML 1,000 ML IV SCH ×4 (03:00→19:47)
[2017-10-25 04:53] LABS: BASOPHILS % 0.3 % (0.0-1.0); EOSINOPHILS % 0.5 % (0.0-6.0); HEMATOCRIT 28.6 % (38.2-49.6); HEMOGLOBIN 9.5 g/dL (14.0-18.0); LYMPHOCYTES # (AUTO) 0.9 (1.0-3.2); LYMPHOCYTES % 23.3 % (18.0-39.1); MEAN CORPUSCULAR HEMOGLOBIN 30.7 pg (28-32); MEAN CORPUSCULAR HGB CONC 33.2 g/dL (31-35); MEAN CORPUSCULAR VOLUME 92.6 fL (81-99); MONOCYTES # (AUTO) 0.4 (0.2-0.8); MONOCYTES % 11.7 % (4.4-11.3); NEUTROPHILS # (AUTO) 2.4 (2.1-6.9); NEUTROPHILS % 63.9 % (38.7-80.0); PLATELET COUNT 124 x10e3/uL (140-360); RED BLOOD COUNT 3.09 x10e6/uL (4.3-5.7); RED CELL DISTRIBUTION WIDTH 13.6 % (11.7-14.4)
[2017-10-25 05:11] LABS: ANION GAP 16.9 mmol/L (8-16); CALCIUM 8.3 mg/dL (8.4-10.2); CREATININE, SERUM 2.78 mg/dL (0.72-1.25); POTASSIUM 3.9 mmol/L (3.5-5.1)
[2017-10-25] MEDS: PROPOFOL IV EMULSION 10MG/ML 100 ML IV PRN ×6 (05:15→22:55)
[2017-10-25] MEDS: PIPERACILLIN/TAZO 2.25 GM 50 ML IV SCH ×3 (05:58→22:16)
[2017-10-25] MEDS: INSULIN REGULAR, HUMAN 100 UNIT/1 ML 3ML VIAL SQ SCH ×4 (06:07→17:41)
--- NOTE | 2017-10-25 06:57 | Diagnostic Imaging Report ---
EXAMINATION: CHEST SINGLE (PORTABLE) INDICATION: Postsurgical COMPARISON: 10/24/2017 FINDINGS: AP view TUBES and LINES: Right IJ central line, endotracheal tube, nasogastric tube are unchanged. LUNGS: Lungs are not well inflated. Left lung is clear. Right lung base atelectasis. There is no evidence of pneumonia or pulmonary edema. PLEURA: No pleural effusion or pneumothorax. HEART AND MEDIASTINUM: The cardiomediastinal silhouette is unremarkable. BONES AND SOFT TISSUES: No acute osseous lesion. Soft tissues are unremarkable. UPPER ABDOMEN: No free air under the diaphragm. IMPRESSION: 1. Stable tubes and lines. 2. Persistent low lung volumes especially the right lung with mediastinal shift to the right secondary to atelectasis. Signed by: Dr. Mehdi Saucedo M.D. on 10/25/2017 6:53 AM
--- NOTE | 2017-10-25 08:12 | Consultation ---
DATE OF CONSULTATION: October 25, 2017 PULMONARY MEDICINE CONSULT HISTORY OF PRESENT ILLNESS: Mr. Bailey is a pleasant 82-year-old gentleman with acute respiratory failure. The patient was admitted to [facility] on October 23, 2017. Patient was having issues with rectal bleeding. Onset was 2 days previous. He was urged to come to the hospital and he finally did. Patient was requested for evaluation further. Abdominal CT with pelvis showed colonic thickening, descending portion, multiple diverticulosis, calcified SMA artery, and other vessels going towards the leg. 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 There is persistent pneumatosis at the terminal ileum as well as diffuse wall thickening of multiple loops of jejunum in the left abdomen. Overall findings are highly suggestive of ischemic bowel. There is also moderate right and severe left proximal common iliac artery stenosis due to the plaques. Patient was recommended for urgent surgery. Patient underwent exploratory laparotomy, right hemicolectomy, small bowel resection, and omentectomy for the ischemic bowel. Patient came from the OR intubated. Patient was on some Levophed, which has been weaned off. PAST MEDICAL HISTORY: Patient follows intermittently in my clinic with history of lung cancer and other conditions. 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 MEDICATIONS: Medications list reviewed per electronic record. ALLERGIES: NO KNOWN DRUG ALLERGIES. SOCIAL HISTORY: Patient smoked formerly, but slowed down for last 17 years; however, he smokes other forms of tobacco at this time. No alcohol. No drugs. Patient still goes to work every day. He has supportive family. FAMILY HISTORY: Noncontributory to this. REVIEW OF SYSTEMS: Cannot get as he is intubated. PHYSICAL EXAMINATION VITAL SIGNS: Afebrile. Vital signs noted per electronic record. GENERAL: Sedated, on ventilator. HEENT: Normocephalic and atraumatic. NECK: Supple. Throat midline. LUNGS: Bilateral air entry, limited. CARDIOVASCULAR: S1 and S2. No murmurs, rubs, or gallops. ABDOMEN: Soft and nontender. Abdomen has a big binder, and therefore, the examination was limited to the abdomen. EXTREMITIES: No clubbing. No cyanosis. There is no edema to the legs. INTEGUMENT: No rash. No purpura. LABORATORY DATA: Potassium 4.6, BUN 57, and creatinine 2.3. White count 12, 29 hematocrit, and 164 platelets. IMPRESSION 1. Acute respiratory failure, multifactorial. 2. Ischemic bowel on admission. 3. Postoperative state, status post partial small and large bowel resections. 4. Pupbi-wk-ijabbbx kidney disease. 5. History of lung cancer and lung resective surgery in 2013. 6. Cerebrovascular accident with reasonable recovery. 7. Diabetes. 8. Hypertension. 9. History of bladder cancer, status post surgery. 10. Dyslipidemia. 11. Long-time smoker. 12. Obesity. 13. Moderate protein malnutrition. 14. Forgetfulness. PLAN: At this time, continue to perfuse kidney. Maintain intubated state. We will discuss with team regarding time of extubation, which we may elect to have done in a few days rather than sooner. Patient will continue propofol sedation for now. He can have fentanyl or other pain medicines as needed for pain. Patient will have serial followups. Avoid renal toxic agents. Thank you very much Dr. Carvalho for allowing me a change to participate in the care of Mr. Bailey. Do not hesitate to contact me if I can help in any way. Job#: [id number] DANNY
--- NOTE | 2017-10-25 11:45 | Progress Note ---
DATE: October 25, 2017 INTERNAL MEDICINE PROGRESS NOTE SUBJECTIVE: Patient is still on the ventilator. PHYSICAL EXAM VITAL SIGNS: Blood pressure 122/56, temperature 98.7, heart rate 86 per minute, respiratory rate 12 per minute, oxygen saturation 99%. HEART: Shows regular rhythm. Normal S1, S2 sounds. LUNGS: Show decreased sounds bilaterally in the lungs. ABDOMEN: Soft. EXTREMITIES: Show no evidence of cyanosis, edema or trauma. LABORATORY DATA: On the BMP, sodium 138, potassium 3.9, chloride 107, CO2 of 18, BUN 16, creatinine 2.78, glucose 204. On the CBC, white blood count 3.69, hemoglobin 9.5, hematocrit 28.6, platelet count 124,000. PT 17.3, INR 1.53, PTT 38.4. AST 16, ALT 15, total bilirubin 0.8, alkaline phosphatase 134. Chest x-ray showed atelectasis. FINAL IMPRESSION 1. Acute respiratory failure. 2. Ischemic bowel, status post right hemicolectomy. 3. Acute renal failure on chronic renal failure secondary to acute tubular necrosis. 4. Acute anemia. 5. Septic shock. 6. Obesity. PLAN OF TREATMENT: Continue ventilator support, wean as tolerated. Continue metronidazole 500 mg IV q.6 hours, Zosyn 3.375 grams IV q.8 hours, and propofol for sedation. Continue monitoring blood sugar q.6 hours. Lovenox 60 mg 1 tablet daily for DVT prophylaxis. Dilaudid 1 mg IV q.3 hours as needed, Protonix 40 mg IV once a day. I discussed the case with the at the bedside. Time spent around 55 minutes. Job#: [id number] MAHOGANY
[2017-10-25 12:36] LABS: HEMATOCRIT 26.9 % (38.2-49.6); HEMOGLOBIN 8.9 g/dL (14.0-18.0)
[2017-10-25] MEDS: ENOXAPARIN SOD INJ 60 MG/0.6 ML SYR SC SCH (17:00)
[2017-10-25 17:39] LABS: HEMATOCRIT 27.8 % (38.2-49.6); HEMOGLOBIN 9.3 g/dL (14.0-18.0)
[2017-10-25] MEDS: PANTOPRAZOLE 40 MG 10ML VIAL IV SCH (20:41)
[2017-10-26] VITALS (94 sets, daily range): BP systolic 124–181; BP diastolic 51–92
[2017-10-26] MEDS: SODIUM CHLORIDE 0.9% 250ML IRRIG IR SCH ×6 (00:20→19:35)
[2017-10-26] MEDS: METRONIDAZOLE 500MG/NS 100ML 100 ML IV SCH ×5 (00:20→23:52)
[2017-10-26] MEDS: PROPOFOL IV EMULSION 10MG/ML 100 ML IV PRN ×5 (02:24→23:22)
[2017-10-26] MEDS: SODIUM CHLORIDE 0.9% 1000ML 1,000 ML IV SCH ×2 (03:38→13:36)
[2017-10-26 04:49] LABS: BASOPHILS % 0.3 % (0.0-1.0); EOSINOPHILS # (AUTO) 0.1 (0.0-0.4); EOSINOPHILS % 1.4 % (0.0-6.0); HEMATOCRIT 27.7 % (38.2-49.6); HEMOGLOBIN 9.2 g/dL (14.0-18.0); LYMPHOCYTES # (AUTO) 0.7 (1.0-3.2); LYMPHOCYTES % 20.9 % (18.0-39.1); MEAN CORPUSCULAR HEMOGLOBIN 30.8 pg (28-32); MEAN CORPUSCULAR HGB CONC 33.2 g/dL (31-35); MEAN CORPUSCULAR VOLUME 92.6 fL (81-99); MONOCYTES # (AUTO) 0.4 (0.2-0.8); MONOCYTES % 10.7 % (4.4-11.3); NEUTROPHILS # (AUTO) 2.3 (2.1-6.9); NEUTROPHILS % 65.8 % (38.7-80.0); PLATELET COUNT 131 x10e3/uL (140-360); RED BLOOD COUNT 2.99 x10e6/uL (4.3-5.7); RED CELL DISTRIBUTION WIDTH 13.6 % (11.7-14.4)
[2017-10-26 05:09] LABS: CALCIUM IONIZED 1.2 mmol/L (1.09-1.30)
[2017-10-26 05:17] LABS: MAGNESIUM 1.8 MG/DL (1.3-2.1); PHOSPHORUS 2.9 MG/DL (2.3-4.7)
[2017-10-26 05:38] LABS: ALBUMIN 2.1 g/dL (3.5-5.0); ALBUMIN/GLOBULIN RATIO 0.6 (0.8-2.0); ANION GAP 15.7 mmol/L (8-16); BILIRUBIN,DIRECT 0.2 mg/dL (0.0-0.5); CALCIUM 8.6 mg/dL (8.4-10.2); CREATININE, SERUM 2.05 mg/dL (0.72-1.25); POTASSIUM 3.7 mmol/L (3.5-5.1)
[2017-10-26] MEDS: PIPERACILLIN/TAZO 2.25 GM 50 ML IV SCH ×3 (05:50→22:22)
[2017-10-26] MEDS: INSULIN REGULAR, HUMAN 100 UNIT/1 ML 3ML VIAL SQ SCH ×5 (06:11→23:53)
--- NOTE | 2017-10-26 07:00 | Diagnostic Imaging Report ---
EXAMINATION: CHEST SINGLE (PORTABLE) INDICATION: Post surgery COMPARISON: 10/25/2017 FINDINGS: TUBES and LINES: Tubes and lines are stable with endotracheal, NG tube and right IJ central line catheter LUNGS: Lungs are not well inflated. There are bibasilar atelectasis. There is mild prominence of the central pulmonary vasculature, consistent with pulmonary venous congestion. PLEURA: No pleural effusion or pneumothorax. HEART AND MEDIASTINUM: Cardiac size is mildly enlarged. There are atherosclerotic calcifications within the aorta. BONES AND SOFT TISSUES: No acute osseous lesion. Soft tissues are unremarkable. UPPER ABDOMEN: No free air under the diaphragm. IMPRESSION: Stable chest with evidence of bibasilar atelectasis Signed by: Dr. Mehdi Saucedo M.D. on 10/26/2017 6:56 AM
[2017-10-26] MEDS: ENOXAPARIN SOD INJ 60 MG/0.6 ML SYR SC SCH (17:06)
[2017-10-26] MEDS: PANTOPRAZOLE 40 MG 10ML VIAL IV SCH (19:55)
[2017-10-26] MEDS ORDERED: CENTRAL TPN FORMULA 1 BAG IV SCH (20:00)
[2017-10-26] MEDS ORDERED: DEXMEDETOMIDINE HCL 200 MCG in SODIUM CHLORIDE 0.9% 50ML 48 ML IV PRN (22:00)
[2017-10-26 23:35] LABS: ABG HCO3 22 mmol/L (23-28); ABG PCO2 34 mmHg (41-51); ABG PH 7.41 (7.31-7.41); ABG PO2 112 mmHg (80-105)
--- NOTE | 2017-10-26 23:48 | Progress Note ---
DATE: October 26, 2017 PULMONARY MEDICINE PROGRESS NOTE SUBJECTIVE: Mr. Bailey was seen and examined at bedside. He continues to have slow progress. He had a bowel movement today. Patient's creatinine slightly improved. Urine output remains stable. Remains on ventilator, he is sedated on propofol 50 mcg per minute. REVIEW OF SYSTEMS: Cannot get as he is intubated. OBJECTIVE: VITAL SIGNS: Afebrile, vital signs noted per electronic record. GENERAL: In no acute distress, alert and calm. HEENT: Normocephalic, atraumatic. NECK: Supple. Throat midline. LUNGS: Bilateral air entry, decreased breath sounds due to decreased effort, limited. CARDIOVASCULAR: S1, S2. There is 2+ murmur at the base. No rubs, no gallops. ABDOMEN: Soft binder on it. EXTREMITIES: No clubbing, no cyanosis, there is only trace edema. INTEGUMENT: No rash, no purpura. LABS: 49 BUN, 2.0 creatinine. 18 bicarbonate. 3.4 white count, 28 hematocrit, 131,000 platelets. 1.5 INR, 38 PTT. IMPRESSIONS AND PLAN: 1. Acute respiratory failure, intubated. 2. Acute kidney failure, hopefully stabilizes. 3. Postoperative state, status post multiple large and small-bowel resection. 4. Ischemic bowel, severe peripheral vascular disease. 5. Forgetfulness. 6. History of lung cancer and lung resective surgery. 7. Anemia, stable. Continue ventilator. Continue intubated state. No weaning yet, contraindicated based on expected behavior and agitation. Propofol to continue, but will wean it off or have to go off of it increasing triglycerides. Precedex alternative was ordered. Total parenteral nutrition initiated. to work, will consider gastrointestinal feeds in conjunction with surgeon. Deep venous thrombosis and gastrointestinal prophylaxis ordered. Job#: [id number]
[2017-10-27] VITALS (91 sets, daily range): BP systolic 85–240; BP diastolic 31–214
[2017-10-27] MEDS: SODIUM CHLORIDE 0.9% 250ML IRRIG IR SCH ×7 (00:07→23:37)
[2017-10-27] MEDS: SODIUM CHLORIDE 0.9% 1000ML 1,000 ML IV SCH (01:47)
[2017-10-27] MEDS: DEXMEDETOMIDINE HCL 200 MCG in SODIUM CHLORIDE 0.9% 50ML 48 ML IV PRN ×7 (03:45→23:19)
[2017-10-27] MEDS: PROPOFOL IV EMULSION 10MG/ML 100 ML IV PRN (04:19)
[2017-10-27 04:44] LABS: BASOPHILS % 0.4 % (0.0-1.0); EOSINOPHILS # (AUTO) 0.1 (0.0-0.4); EOSINOPHILS % 1.9 % (0.0-6.0); HEMATOCRIT 27.2 % (38.2-49.6); LYMPHOCYTES # (AUTO) 0.5 (1.0-3.2); LYMPHOCYTES % 19.6 % (18.0-39.1); MEAN CORPUSCULAR HEMOGLOBIN 30.6 pg (28-32); MEAN CORPUSCULAR HGB CONC 33.1 g/dL (31-35); MEAN CORPUSCULAR VOLUME 92.5 fL (81-99); MONOCYTES # (AUTO) 0.3 (0.2-0.8); MONOCYTES % 13.1 % (4.4-11.3); NEUTROPHILS # (AUTO) 1.7 (2.1-6.9); NEUTROPHILS % 63.5 % (38.7-80.0); PLATELET COUNT 132 x10e3/uL (140-360); RED BLOOD COUNT 2.94 x10e6/uL (4.3-5.7); RED CELL DISTRIBUTION WIDTH 13.5 % (11.7-14.4)
[2017-10-27 05:14] LABS: ANION GAP 14.8 mmol/L (8-16); CALCIUM 8.6 mg/dL (8.4-10.2); CREATININE, SERUM 1.6 mg/dL (0.72-1.25); POTASSIUM 3.8 mmol/L (3.5-5.1)
[2017-10-27] MEDS: PIPERACILLIN/TAZO 2.25 GM 50 ML IV SCH ×3 (06:17→23:17)
[2017-10-27] MEDS: METRONIDAZOLE 500MG/NS 100ML 100 ML IV SCH ×4 (06:17→23:37)
[2017-10-27] MEDS: INSULIN REGULAR, HUMAN 100 UNIT/1 ML 3ML VIAL SQ SCH ×4 (06:18→23:28)
--- NOTE | 2017-10-27 07:28 | Diagnostic Imaging Report ---
Examination: Single AP view of the chest. COMPARISON: 10/26/2017 INDICATION: Postop DISCUSSION: See impression IMPRESSION: Endotracheal tube, enteric tube, and right internal jugular central venous catheter are stable in position. Worsening bibasilar airspace opacities compatible with atelectasis. Trace right pleural effusion is suspected. Stable cardiomediastinal contour with pulmonary venous congestion. Signed by: Dr. Harley Tobar M.D. on 10/27/2017 7:25 AM
[2017-10-27] MEDS: FENTANYL CITRATE INJ 2,000 MCG in SODIUM CHLORIDE 0.9% 250ML 210 ML IV PRN (08:56)
--- NOTE | 2017-10-27 13:55 | Progress Note ---
DATE: October 27, 2017 PULMONARY MEDICINE PROGRESS NOTE SUBJECTIVE: Mr. Bailey was seen and examined at bedside. He is on fentanyl intermittently. The Precedex at 0.7 mg/kg per minute. He remains on Precedex. In addition, he is on fentanyl 50 mcg per hour. Patient remains intubated but will awaken when sedation is lifted. REVIEW OF SYSTEMS: Cannot get as he is intubated. OBJECTIVE VITAL SIGNS: Afebrile. Vital signs noted per electronic record. GENERALLY: No acute distress, alert, sedation, but right now sedated. HEENT: Normocephalic, atraumatic. NECK: Supple. Throat midline. LUNGS: Bilateral air entry, a few rhonchi. CARDIOVASCULAR: S1 and S2. No murmurs, rubs or gallops. ABDOMINAL: Soft, nontender. EXTREMITIES: No clubbing, no cyanosis. There is trace edema. INTEGUMENT: No rash. No purpura. LABS: Potassium 3.8, BUN 37, creatinine 1.6. White count 2.6, hematocrit 27, platelets 132. IMPRESSION AND PLAN 1. Acute respiratory failure, intubated. 2. Ischemic gut, status post partial small and large bowel resections. 3. Multiple peripheral vascular disease. 4. Chronic kidney disease. 5. Anemia. 6. Hyperglycemia. 7. Hypertension, hyperlipidemia, coronary artery disease, cerebrovascular accident 2011, bladder cancer status post treatment, diabetes. Follow up closely. Will consider some glucose/insulin adjustments. Keep him intubated today. Continue suctioning his airway given chest x-ray with increased atelectasis versus fluid. Consider diuresing him further if we are going to start weaning him, possibly as early as tomorrow. Will follow up closely. Job#: [id number] EV
[2017-10-27] MEDS: ENOXAPARIN SOD INJ 60 MG/0.6 ML SYR SC SCH (17:06)
[2017-10-27] MEDS: CENTRAL TPN FORMULA 1 BAG IV SCH (19:03)
[2017-10-27] MEDS: PANTOPRAZOLE 40 MG 10ML VIAL IV SCH (20:00)
[2017-10-28] VITALS (32 sets, daily range): BP systolic 92–202; BP diastolic 35–95
[2017-10-28] MEDS: DEXMEDETOMIDINE HCL 200 MCG in SODIUM CHLORIDE 0.9% 50ML 48 ML IV PRN ×3 (02:30→09:02)
[2017-10-28] MEDS: SODIUM CHLORIDE 0.9% 250ML IRRIG IR SCH ×7 (04:15→20:07)
[2017-10-28 04:47] LABS: BASOPHILS % 0.4 % (0.0-1.0); EOSINOPHILS # (AUTO) 0.1 (0.0-0.4); EOSINOPHILS % 2.3 % (0.0-6.0); HEMATOCRIT 27.9 % (38.2-49.6); HEMOGLOBIN 9.1 g/dL (14.0-18.0); LYMPHOCYTES # (AUTO) 0.9 (1.0-3.2); LYMPHOCYTES % 32.7 % (18.0-39.1); MEAN CORPUSCULAR HEMOGLOBIN 30.4 pg (28-32); MEAN CORPUSCULAR HGB CONC 32.6 g/dL (31-35); MEAN CORPUSCULAR VOLUME 93.3 fL (81-99); MONOCYTES # (AUTO) 0.3 (0.2-0.8); NEUTROPHILS # (AUTO) 1.4 (2.1-6.9); NEUTROPHILS % 50.7 % (38.7-80.0); PLATELET COUNT 137 x10e3/uL (140-360); RED BLOOD COUNT 2.99 x10e6/uL (4.3-5.7); RED CELL DISTRIBUTION WIDTH 13.6 % (11.7-14.4)
[2017-10-28 05:14] LABS: ANION GAP 13.2 mmol/L (8-16); CALCIUM 8.7 mg/dL (8.4-10.2); CREATININE, SERUM 1.76 mg/dL (0.72-1.25); MAGNESIUM 2.1 MG/DL (1.3-2.1); POTASSIUM 4.2 mmol/L (3.5-5.1)
[2017-10-28] MEDS: METRONIDAZOLE 500MG/NS 100ML 100 ML IV SCH ×4 (05:50→23:39)
[2017-10-28] MEDS: INSULIN REGULAR, HUMAN 100 UNIT/1 ML 3ML VIAL SQ SCH ×4 (05:50→23:39)
[2017-10-28] MEDS: PIPERACILLIN/TAZO 2.25 GM 50 ML IV SCH ×3 (05:50→21:12)
[2017-10-28] MEDS: FENTANYL CITRATE INJ 2,000 MCG in SODIUM CHLORIDE 0.9% 250ML 210 ML IV PRN (06:58)
--- NOTE | 2017-10-28 07:30 | Diagnostic Imaging Report ---
Examination: Single AP view of the chest. COMPARISON: 10/27/2017 INDICATION: Pneumonia DISCUSSION: See impression IMPRESSION: 1. Endotracheal tube, enteric tube, and right internal jugular central venous catheter are stable in position. 2. Aeration of the lung bases has slightly improved relative to 10/27/2017. 3. Stable cardiomediastinal contour with persistent pulmonary venous congestion. Signed by: Dr. Harley Tobar M.D. on 10/28/2017 7:25 AM
[2017-10-28] MEDS ORDERED: ZIPRASIDONE 20 MG VIAL IM PRN (10:30)
[2017-10-28] MEDS ORDERED: CHLOROTHIAZIDE SODIUM 500 MG VIAL IV NR (10:30)
--- NOTE | 2017-10-28 10:43 | Progress Note ---
DATE: October 28, 2017 PULMONARY MEDICINE PROGRESS NOTE SUBJECTIVE: Mr. Bailey was seen and examined at bedside. He continues to have no signs of worsening. He remains on ventilator at this time. The patient is without bowel movement over the last day but no reported dysfunction of the bowel that is new. REVIEW OF SYSTEMS: No headache. No rash known. The patient remains intubated, limited. PHYSICAL EXAMINATION VITAL SIGNS: Noted. Stable per electronic record. GENERALLY: No acute distress, alert and calm. HEENT: Normocephalic, atraumatic. NECK: Supple. Throat midline. LUNGS: Bilateral air entry. Rare rhonchi at the base. CARDIOVASCULAR: S1 and S2. No murmurs, rubs or gallops. ABDOMEN: Soft postoperatively. EXTREMITIES: No clubbing, no cyanosis. Trace edema. INTEGUMENT: No rash. No purpura. LABS: BUN 45, 0.8 creatinine, 4.2 potassium, 3 white count, 28 hematocrit, 137 platelets, 1.5 INR. IMPRESSION AND PLAN 1. Acute respiratory failure, on ventilator. 2. Postoperative state, status post resected bowel surgery. 3. Admitted for ischemic bowel. 4. Encephalopathy, delirium and forgetfulness, chronic. 5. Chronic kidney disease. Continue to follow up closely. Give 1 dose of chlorothiazide. Will follow close. Continue to try to wean him. Continue to follow urine output. Job#: [id number]
[2017-10-28] MEDS ORDERED: DEXTROSE 5% 500ML 500 ML IV ONE (11:30)
[2017-10-28] MEDS ORDERED: ACETAMINOPHEN 1000 MG/100 ML IV PRN (17:45)
[2017-10-28] MEDS ORDERED: DEXTROSE 50% SYRINGE 50 ML IV PRN (18:00)
[2017-10-28] MEDS: ENOXAPARIN SOD INJ 60 MG/0.6 ML SYR SC SCH (18:30)
[2017-10-28] MEDS ORDERED: SODIUM CHLORIDE 0.9% 50ML 50 ML ONE (20:16)
[2017-10-28] MEDS: PANTOPRAZOLE 40 MG 10ML VIAL IV SCH (20:33)
[2017-10-28] MEDS: CENTRAL TPN FORMULA 1 BAG IV SCH (20:37)
[2017-10-28] MEDS: METOPROLOL TARTRATE INJ 1 MG/ML VIAL IV PRN ×2 (21:00→23:15)
[2017-10-28] MEDS: HYDRALAZINE HCL 20 MG/ML VIAL IV PRN (22:46)
[2017-10-29] VITALS (66 sets, daily range): BP systolic 123–210; BP diastolic 56–105
[2017-10-29] MEDS: MORPHINE SULFATE INJ 4 MG/ML INJ IV PRN (00:06)
[2017-10-29 04:51] LABS: BASOPHILS % 0.2 % (0.0-1.0); EOSINOPHILS % 0.9 % (0.0-6.0); HEMATOCRIT 32.7 % (38.2-49.6); HEMOGLOBIN 10.8 g/dL (14.0-18.0); LYMPHOCYTES # (AUTO) 0.8 (1.0-3.2); LYMPHOCYTES % 17.6 % (18.0-39.1); MEAN CORPUSCULAR HEMOGLOBIN 30.6 pg (28-32); MEAN CORPUSCULAR VOLUME 92.6 fL (81-99); MONOCYTES # (AUTO) 0.5 (0.2-0.8); MONOCYTES % 10.9 % (4.4-11.3); NEUTROPHILS % 68.6 % (38.7-80.0); PLATELET COUNT 188 x10e3/uL (140-360); RED BLOOD COUNT 3.53 x10e6/uL (4.3-5.7); RED CELL DISTRIBUTION WIDTH 13.5 % (11.7-14.4)
[2017-10-29 05:16] LABS: ALBUMIN 2.2 g/dL (3.5-5.0); ALBUMIN/GLOBULIN RATIO 0.5 (0.8-2.0); ANION GAP 14.8 mmol/L (8-16); CALCIUM 9.2 mg/dL (8.4-10.2); CREATININE, SERUM 1.56 mg/dL (0.72-1.25); MAGNESIUM 1.9 MG/DL (1.3-2.1); PHOSPHORUS 3.7 MG/DL (2.3-4.7); POTASSIUM 3.8 mmol/L (3.5-5.1)
[2017-10-29] MEDS: INSULIN REGULAR, HUMAN 100 UNIT/1 ML 3ML VIAL SQ SCH ×4 (05:40→23:57)
[2017-10-29] MEDS: PIPERACILLIN/TAZO 2.25 GM 50 ML IV SCH ×3 (05:49→21:19)
[2017-10-29] MEDS: METRONIDAZOLE 500MG/NS 100ML 100 ML IV SCH ×4 (05:49→23:46)
--- NOTE | 2017-10-29 06:11 | Diagnostic Imaging Report ---
CHEST SINGLE (PORTABLE), 10/29/2017 5:00 AM Technique: CHEST SINGLE (PORTABLE) Comparison: Previous day Clinical history: Respiratory failure Findings: See Impression Impression: 1. Lines/Tubes: Removal of ET tube, NG tube. Right IJ central venous catheter remains in place over the brachiocephalic SVC junction. 2. Stable cardiomediastinal silhouette. 3. Unchanged bibasilar opacities, possibly atelectasis, aspiration or infection. Small effusions. Signed by: Dr Asiya Paige MD on 10/29/2017 6:07 AM
[2017-10-29] MEDS: METOPROLOL TARTRATE INJ 1 MG/ML VIAL IV PRN ×2 (07:23→20:50)
[2017-10-29] MEDS: SODIUM CHLORIDE 0.9% 250ML IRRIG IR SCH ×4 (07:54→20:49)
[2017-10-29] MEDS: HYDRALAZINE HCL 20 MG/ML VIAL IV PRN ×3 (09:12→20:50)
[2017-10-29] MEDS ORDERED: AMIODARONE HCL 150 MG/100 ML BAG IV ONE (11:45)
[2017-10-29] MEDS ORDERED: AMIODARONE HCL 900 MG in DEXTROSE 5% 500ML 500 ML IV SCH (12:00)
--- NOTE | 2017-10-29 13:10 | Progress Note ---
DATE: October 29, 2017 PULMONARY MEDICINE PROGRESS NOTE SUBJECTIVE: Mr. Bailey was seen and examined at bedside. He continues to have steady progress. He remains extubated. He is still possibly confused, although it is hard to know as he is not vocalizing. His voice is very soft, but occasionally he will try to phonate. He does move his eyes in all directions. On repetitive prodding, he will move his extremities. He remains at this time on TPN. REVIEW OF SYSTEMS: Cannot get as he is not speaking. OBJECTIVE VITALS: Afebrile. Vital signs noted per electronic record. GENERAL: No acute distress, alert and calm, in bed, looks weak. HEENT: Normocephalic, atraumatic. NECK: Supple. Throat midline. LUNGS: Bilateral air entry. A few rare rhonchi. CARDIOVASCULAR: S1 and S2. No murmurs, rubs or gallops. ABDOMEN: Soft, nontender. EXTREMITIES: No clubbing, no cyanosis. There is trace edema. INTEGUMENT: No rash. No purpura. LABS: BUN 41, 1.6 creatinine, 4.4 white count, 32 hematocrit, 188 platelets. IMPRESSION AND PLAN 1. Acute respiratory failure, resolved. 2. Fluid overload, mild, better. 3. Encephalopathy, under investigation. Severity unknown. 4. History of old stroke. 5. Admit for ischemic bowel. 6. Multiple small and large bowel excisions and removal for ischemic bowel. 7. Significant redness and peripheral vascular disease. Continue to follow him up. Get MRI of the brain. Still n.p.o. until he is cognitively better. Continue TPN for now. Postoperative wound care. Future considerations for peripheral vascular disease treatment and workup if he recovers well. Job#: [id number]
[2017-10-29] MEDS: CLONIDINE HCL 0.1 MG/24 HR 1 EA PATCH TOP SCH (14:15)
--- NOTE | 2017-10-29 15:27 | Diagnostic Imaging Report ---
Exam: Head CT without contrast History: Encephalopathy, altered mental status Comparison studies: Multiple prior brain MRIs and head CTs which date to brain MRI of 12/08/2011, most recent brain MRI of 10/23/2017. Technique: Axial images were obtained from the skull base to the vertex. Coronal and sagittal images reconstructed from the axial data. Dose modulation, iterative reconstruction, and/or weight based adjustment of the mA/kV was utilized to reduce the radiation dose to as low as reasonably achievable. Radiation dose: Total DLP: 1036 mGy*cm. Estimated effective dose: DLP x 0.015 Intravenous contrast: None Findings: Scalp: No abnormalities. Bones: No fractures, blastic or lytic lesions. Brain sulci: Mild to probably. Ventricles: Mild extra dilatation. No hydrocephalus. 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 No masses, no fluid collection. Parenchyma: No mass, acute hemorrhage or acute cortical vascular insults. Chronic cortical/subcortical vascular insult in the right parietal lobe extends into the right superior temporal lobe and right lateral occipital lobe in the distal right MCA territory and right MCA-[employer] cortical border zone. Unchanged small chronic lacunar infarct in the right frontal centrum semiovale, and small cortical/subcortical insults in the bilateral cerebellar hemispheres. Small chronic hemorrhagic insult regional to the posterior right super frontal sulcus is seen on the previous brain MRIs beyond resolution of CT. A few scattered hypodensities in the supratentorial white matter are nonspecific most compatible with chronic microvascular ischemic changes. Sellar/suprasellar region: No abnormalities. Craniocervical junction: Patent foramen magnum. No Chiari one malformation. Included paranasal sinuses: Small nonspecific fluid/secretions with mucosal thickening in the left sphenoid sinus. Incidental findings: Atherosclerotic calcifications in the carotid siphons and left intradural vertebral artery. IMPRESSION: No acute abnormalities. No changes from the previous brain MRI of 10/23/2017 when allowing for differences in technique. Chronic findings: 1. Mild generalized volume loss. 2. Mild chronic microvascular ischemic changes. 3. Chronic insults: right parietal-occipitotemporal, right frontal centrum semiovale and bilateral cerebellar hemispheres. 4. Incidental small right middle cranial fossa arachnoid cyst. Signed by: Dr. Harley Broussard M.D. on 10/29/2017 3:22 PM
[2017-10-29] MEDS ORDERED: SODIUM CHLORIDE 0.9% 250ML 250 ML ONE (17:33)
[2017-10-29] MEDS: ENOXAPARIN SOD INJ 60 MG/0.6 ML SYR SC SCH (17:33)
[2017-10-29] MEDS: AMIODARONE 900MG 500 ML IV SCH (18:30)
[2017-10-29] MEDS: PANTOPRAZOLE 40 MG 10ML VIAL IV SCH (20:49)
[2017-10-29] MEDS: CENTRAL TPN FORMULA 1 BAG IV SCH (20:49)
[2017-10-29 21:24] LABS: FREE THYROXINE INDEX 1.5417 (1.4-3.8); THYROID STIMULATING HORMONE 1.336 uIU/mL (0.350-4.940)
--- NOTE | 2017-10-29 21:47 | Consultation ---
DATE OF CONSULTATION: October 29, 2017 NEUROLOGY CONSULT NOTE HISTORY OF PRESENT ILLNESS: Unfortunately, the patient is unable to provide his own medical history at present. History is obtained from the patient's , who is at bedside as well as review of the electronic medical records. Mr. Bailey was admitted to [facility] on October 23, 2017 with the gastrointestinal bleed. Following various diagnostic studies, the patient was found to have an ischemic bowel. He is status post right hemicolectomy. After several days of mechanical ventilation and sedation, Mr. Bailey was extubated yesterday, 10/28/2017. Following his extubation, the patient has had limited verbal output and has appeared encephalopathic. A neurology consultation is requested to evaluate for encephalopathy. Mr. Bailey is prescribed morphine sulfate 3 mg IV every 3 hours as needed for pain. His last dose was received on October 29, 2017 at 0006. A Diprivan infusion was discontinued on October 27, 2017 at 0754. Precedex and fentanyl infusions were discontinued on October 28, 2017 at 1731. REVIEW OF SYSTEMS: Unable to obtain secondary to the patient being encephalopathic. PAST MEDICAL HISTORY: Hypertension, hyperlipidemia, poorly controlled diabetes mellitus, type 2, complicated by peripheral neuropathy, chronic kidney disease stage 3, prior gastrointestinal bleeds, a prior stroke with residual left hemiparesis, history of bladder cancer, history of lung cancer, arteriovenous malformation of the intestine, subdural hematoma. PAST SURGICAL HISTORY: Prior craniotomy, lobectomy of the upper lobe of the right lung, right hemicolectomy. PAST HOSPITALIZATIONS: Surgery/procedures as listed, numerous other hospitalizations for various symptoms. FAMILY MEDICAL HISTORY: The patient's paternal and maternal grandparents are . Their medical histories are unknown. The patient's father and mother are . Their medical histories are unknown. Mr. Bailey has 1 brother who is from cancer. He has a sister, who is from cancer as well. SOCIAL HISTORY: The patient is . 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 There is a positive history of tobacco use. At present, the patient smokes hookah. There is no reported current alcohol or recreational drug use. HOME MEDICATIONS: Please see the list of home medications available in the electronic medical record. ALLERGIES: NO KNOWN DRUG ALLERGIES. NO KNOWN FOOD ALLERGIES. NO KNOWN ALLERGIES TO LATEX. NO KNOWN ALLERGIES TO IODINE OR OTHER CONTRAST MATERIALS. PHYSICAL EXAMINATION VITAL SIGNS: Height 68 inches, weight 217 pounds, BMI 33.0 kg per meter squared. Blood pressure 208/89 mmHg. Pulse 98 beats per minute. Respiratory rate 20 breaths per minute. Oxygen saturation 94% on 4 L by nasal cannula. GENERAL: The patient is awake and alert. Does not appear distressed. Obese. HEENT: Normocephalic, atraumatic. Pupils are surgical. Moist mucous membranes. NECK: Supple. No appreciable thyromegaly. No appreciable carotid bruits. CARDIOVASCULAR: S1, S2, tachycardic. Positive systolic ejection murmur. RESPIRATORY: Clear to auscultation bilaterally. No wheezes rhonchi or rales. EXTREMITIES: The skin is warm and dry. No clubbing, cyanosis, or edema. The posterior tibial and dorsalis pedis pulses are 1+ and symmetric. SKIN: No rashes or lesions. NEUROLOGIC Memory/Attention: Patient is awake and alert. Mr. Bailey does not answer orientation questions. Cranial Nerves: Cranial nerve I--not tested. Cranial nerve II, III, IV, and --pupils appear to be surgical. Extraocular movements are grossly intact. No nystagmus. Cranial nerve V--sensation to light touch is grossly intact in the bilateral V1 through V3 distributions. Cranial nerve VII--the face appears symmetric. Cranial nerve VIII-- hearing is grossly intact to voice. Cranial nerve IX, X--the soft palate elevates equally and symmetrically. Cranial nerve XII--the tongue protrudes midline. Strength: Bulk is normal. Mr. Bailey moves the right hand and arm spontaneously. He moves both feet and legs to peripheral noxious stimulation. There is no movement of the left hand or arm. Tone is normal. DTRs: Deep tendon reflexes are 1+ and symmetric at the triceps, biceps, and brachioradialis. Deep tendon reflexes are absent and symmetric at the patellas and Achilles. Plantar responses are mute bilaterally. Sensation: As per motor exam. Cerebellar: Unable to assess secondary to the patient being encephalopathic. Gait: Deferred. Speech: There is absence of spontaneous speech. The patient grunts throughout the examination, but it is unclear if this is an attempt to verbalize and answer questions. Involuntary Movements: None. Pronator drift: As per motor exam. LABORATORY DATA: The complete metabolic panel is significant for an elevated sodium of 147, elevated chloride of 118, low carbon dioxide level of 18, BUN of 41, creatinine of 1.56, estimated GFR of 43, glucose of 319. The CBC with differential and platelets reveals a white blood cell count of 4.42 with a left shift. The hemoglobin and hematocrit are 10.8 and 32.7, respectively. The platelet count is 183,000. An arterial blood gas collected on October 26, 2017 reveals a pH of 7.41, pCO2 of 34, pO2 of 112, bicarbonate of 22, O2 saturation of 98.0, base excess of -3.0, and FiO2 of 40. A urinalysis collected on October 23, 2017 was significant for trace protein and 2+ blood. A urine culture collected on October 23, 2017 demonstrated no growth at 36 to 48 hours. DIAGNOSTIC STUDIES 1. Electrocardiogram, 10/22/2017: Sinus tachycardiac at 106 beats per minute. 2. Chest x-ray, 10/22/2017: No acute thoracic abnormality. 3. Electrocardiogram, 10/23/2017: Sinus tachycardia at 104 beats per minute. 4. Echocardiogram, 10/23/2017: Ejection fraction 60%. Concentric left ventricular hypertrophy. Left atrial enlargement. 5. Pelvic ultrasound, 10/23/2017: Stable simple bilateral renal cysts. No hydronephrosis. Moderate residual postvoiding volume in the urinary bladder. Mildly enlarged prostate. 6. CT of the abdomen/pelvis without contrast on 10/23/2017: Ileal pneumatosis with air in mesenteric system and left portal vein, suggestive of ischemic or infectious in etiology. Note is made of severe calcified plaque in the SMA, incompletely evaluated in the absence of IV contrast, which suggests the potential ischemic etiology. A CTA maybe considered for further evaluation. Distal sigmoid colon and rectal wall thickening, which may partially be due to underdistention. Given the reported history of rectal bleeding, the findings could reflect proctitis. 7. MRI of the brain without contrast, 10/23/2017: On my review, there is no evidence of recent large territorial ischemia, hemorrhage, mass, or mass effect. There are multiple prior vascular insults as follows: Right parietal-occipitotemporal infarcts with encephalomalacia, multiple chronic cortical/subcortical supra- and infratentorial insults. Mild chronic small vessel ischemic disease. 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 8. Chest x-ray 10/29/2017: 1. Lines/tubes: Removal of ET tube, NG tube. Right IJ central venous catheter remains in place over brachiocephalic SVC junction. 2. Stable cardiomediastinal silhouette. 3. Unchanged bibasilar opacities, possibly atelectasis, aspiration, or infection. Small effusion. 4. CT of the brain without contrast, 10/29/2017: On my review, there is no evidence of recent large territorial ischemia, hemorrhage, mass, or mass effect. The results of the CT scan appears stable prior MRI of the brain without contrast performed on 10/23/2017. ASSESSMENT AND PLAN: Mr. Bailey is an 82-year-old right-hand dominant man with multiple medical problems, including encephalopathy, status post extubation and discontinuation of sedation. The patient has undergone a thorough neurological examination with findings detailed above. His laboratory data and other diagnostic studies have been reviewed and are documented above. The etiology of the patient's encephalopathy is undetermined. It could be, the patient is still in the effects of multiple sedating drugs. Mr. Bailey has been hypertensive throughout the day. It is possible his symptoms are the result of hypertensive emergency. There is also the possibility of metabolic encephalopathy. Lastly, stroke is a consideration given the patient's limited mobility of his left arm. However, the stable CT of the brain without contrast makes this last diagnosis less likely. RECOMMENDATIONS 1. Blood and urine studies will be ordered to evaluate for treatable causes of encephalopathy. Those studies will include: An ammonia level, thyroid function test, a vitamin B1 level, a vitamin B12 level, RPR, urinalysis, urine culture, and blood culture. 2. Consider performing an MRI of the brain without contrast as soon as possible to evaluate more definitively for stroke, hypoxic brain injury, etc. 3. Limit the use of sedative/hypnotic and pain medications as this will alter the patient's sensorium. 4. Utilize environmental cues to combat delirium. 5. Defer treatment of the remaining medical comorbidities to the primary and other services following the patient. Thank you for this consultation. I will continue to follow the patient while he remains in the hospital. TIME SPENT: 70 minutes. Job#: [id number] CQ MTDD
[2017-10-30] VITALS (61 sets, daily range): BP systolic 139–185; BP diastolic 57–89
[2017-10-30] MEDS: SODIUM CHLORIDE 0.9% 250ML IRRIG IR SCH ×6 (00:15→20:15)
[2017-10-30 04:46] LABS: BASOPHILS % 0.4 % (0.0-1.0); EOSINOPHILS % 0.2 % (0.0-6.0); HEMATOCRIT 32.4 % (38.2-49.6); HEMOGLOBIN 10.7 g/dL (14.0-18.0); LYMPHOCYTES # (AUTO) 0.6 (1.0-3.2); LYMPHOCYTES % 12.4 % (18.0-39.1); MEAN CORPUSCULAR HEMOGLOBIN 30.6 pg (28-32); MEAN CORPUSCULAR VOLUME 92.6 fL (81-99); MONOCYTES # (AUTO) 0.4 (0.2-0.8); MONOCYTES % 9.1 % (4.4-11.3); NEUTROPHILS # (AUTO) 3.5 (2.1-6.9); NEUTROPHILS % 76.4 % (38.7-80.0); PLATELET COUNT 239 x10e3/uL (140-360); RED CELL DISTRIBUTION WIDTH 13.7 % (11.7-14.4)
[2017-10-30 05:07] LABS: ANION GAP 14.7 mmol/L (8-16); CALCIUM 9.2 mg/dL (8.4-10.2); CREATININE, SERUM 1.64 mg/dL (0.72-1.25); PHOSPHORUS 3.3 MG/DL (2.3-4.7); POTASSIUM 3.7 mmol/L (3.5-5.1)
[2017-10-30] MEDS: METRONIDAZOLE 500MG/NS 100ML 100 ML IV SCH ×2 (05:12→12:39)
[2017-10-30] MEDS: INSULIN REGULAR, HUMAN 100 UNIT/1 ML 3ML VIAL SQ SCH ×3 (05:17→17:44)
[2017-10-30] MEDS: PIPERACILLIN/TAZO 2.25 GM 50 ML IV SCH ×2 (06:08→13:45)
[2017-10-30 07:01] LABS: LYMPHOCYTES % (MANUAL) 20 % (19-48); MONOCYTES % (MANUAL) 10 % (3.4-9.0); NEUTROPHILS % (MANUAL) 70 % (40-74)
[2017-10-30 07:02] LABS: ANISOCYTOSIS SLIGHT; POIKILOCYTOSIS SLIGHT
[2017-10-30 07:03] LABS: PLATELET ESTIMATE ADEQUATE; PLATELET MORPHOLOGY COMMENT NORMAL; RBC MORPHOLOGY COMMENT NORMAL
[2017-10-30 10:32] LABS: BILIRUBIN,URINE NEGATIVE (NEGATIVE); CLARITY,URINE SL CLOUDY (CLEAR); COLOR,URINE YELLOW (YELLOW); KETONES,URINE NEGATIVE (NEGATIVE); LEUKOCYTE ESTERASE ,URINE NEGATIVE (NEGATIVE); URINE UROBILINOGEN 0.2 mg/dL (0.2 - 1)
[2017-10-30 10:33] LABS: NITRITE,URINE NEGATIVE (NEGATIVE); PROTEIN,URINE DIPSTICK 1+ (NEGATIVE)
[2017-10-30] MEDS: DEXTROSE 5% 1,000 ML IV SCH (10:39)
[2017-10-30] MEDS: HYDRALAZINE HCL 20 MG/ML VIAL IV PRN ×3 (10:40→17:34)
[2017-10-30 10:45] LABS: TOTAL PROTEIN, URINE 46.8 mg/dL (1-14)
[2017-10-30 10:55] LABS: RBC,URINE 21-50 /HPF (0-5)
[2017-10-30 10:56] LABS: EPITHELIAL CELLS,URINE FEW /LPF; MUCUS,URINE FEW (RARE)
[2017-10-30] MEDS: METOPROLOL TARTRATE INJ 1 MG/ML VIAL IV PRN (13:45)
[2017-10-30] MEDS: AMIODARONE 900MG 500 ML IV SCH (16:21)
[2017-10-30] MEDS: ENOXAPARIN SOD INJ 60 MG/0.6 ML SYR SC SCH (17:33)
[2017-10-30] MEDS: INSULIN DETEMIR 100 UNIT/ML PEN SQ SCH (17:44)
[2017-10-30] MEDS ORDERED: SODIUM CHLORIDE 0.9% 1000ML 1,000 ML ONE (19:47)
[2017-10-30] MEDS: CENTRAL TPN FORMULA 1 BAG IV SCH (20:03)
[2017-10-30] MEDS: PANTOPRAZOLE 40 MG 10ML VIAL IV SCH (20:30)
--- NOTE | 2017-10-30 22:26 | Progress Note ---
DATE: October 30, 2017 PULMONARY MEDICINE PROGRESS NOTE SUBJECTIVE: Mr. Bailey was seen and examined at bedside. He continues to have slow progress. He is weak. He is intermittently communicative on mild stimuli. However, his communications are limited to short phrases. Cannot hold a conversation due to poor completion of thinking processes. He also seems to have left-sided neglect. Breathing gibbs, just now stress episodes. REVIEW OF SYSTEMS: Cannot get reliably as he altered. OBJECTIVE VITALS: Afebrile, vital signs noted per electronic record. GENERAL: No acute distress, alert and calm, in bed, appears very weak. HEENT: Normocephalic, atraumatic. NECK: Supple. Throat midline. LUNGS: Bilateral air entry mostly limited, clear. CARDIOVASCULAR: S1 and S2. No murmurs, rubs or gallops. ABDOMEN: Soft and nontender. EXTREMITIES: No clubbing, no cyanosis. There is 1+ edema. INTEGUMENT: No rash. No purpura. IMPRESSION AND PLAN 1. Acute respiratory failure, extubated. 2. Weakness. 3. Admit for ischemic bowel. 4. Postoperative state, status post multiple small and large bowel resection. 5. Chronic kidney disease. 6. Hyperglycemia, diabetes. 7. Cerebrovascular accident in 2011, left body weakness. 8. Hypertension, hyperlipidemia, and lung cancer in March 2013. Continue current therapy. TPN ongoing. Insulin has been adjusted. Follow up blood pressure and cover for high levels p.r.n. Patient at this time remains on antibiotic. Antibiotics were stopped and we will follow. DVT prophylaxis/modified anticoagulation doses ongoing. Job#: [id number] RTY
[2017-10-31] VITALS (44 sets, daily range): BP systolic 105–181; BP diastolic 56–109
[2017-10-31] MEDS: INSULIN REGULAR, HUMAN 100 UNIT/1 ML 3ML VIAL SQ SCH ×4 (00:02→17:47)
[2017-10-31] MEDS: SODIUM CHLORIDE 0.9% 250ML IRRIG IR SCH ×5 (00:15→16:15)
[2017-10-31] MEDS: MORPHINE SULFATE INJ 4 MG/ML INJ IV PRN ×4 (00:47→22:30)
[2017-10-31] MEDS: DEXTROSE 5% 1,000 ML IV SCH ×2 (03:05→16:35)
[2017-10-31 04:47] LABS: BASOPHILS % 0.2 % (0.0-1.0); EOSINOPHILS # (AUTO) 0.1 (0.0-0.4); EOSINOPHILS % 1.1 % (0.0-6.0); HEMOGLOBIN 10.2 g/dL (14.0-18.0); LYMPHOCYTES # (AUTO) 0.7 (1.0-3.2); LYMPHOCYTES % 14.8 % (18.0-39.1); MEAN CORPUSCULAR HEMOGLOBIN 29.8 pg (28-32); MEAN CORPUSCULAR HGB CONC 31.9 g/dL (31-35); MEAN CORPUSCULAR VOLUME 93.6 fL (81-99); MONOCYTES # (AUTO) 0.4 (0.2-0.8); MONOCYTES % 9.1 % (4.4-11.3); NEUTROPHILS # (AUTO) 3.4 (2.1-6.9); NEUTROPHILS % 73.9 % (38.7-80.0); PLATELET COUNT 269 x10e3/uL (140-360); RED BLOOD COUNT 3.42 x10e6/uL (4.3-5.7); RED CELL DISTRIBUTION WIDTH 13.7 % (11.7-14.4)
[2017-10-31 05:07] LABS: ANION GAP 15.5 mmol/L (8-16); CREATININE, SERUM 1.55 mg/dL (0.72-1.25); POTASSIUM 3.5 mmol/L (3.5-5.1)
[2017-10-31] MEDS: INSULIN DETEMIR 100 UNIT/ML PEN SQ SCH ×2 (09:05→20:58)
[2017-10-31] MEDS: METOPROLOL TARTRATE INJ 1 MG/ML VIAL IV PRN (13:01)
--- NOTE | 2017-10-31 15:52 | Progress Note ---
DATE: October 31, 2017 PULMONARY MEDICINE PROGRESS NOTE SUBJECTIVE: Mr. Bailey was seen and examined at bedside. He continues to have steady progress. Still some memory impairment. Still slow responsiveness. He does not hold a conversation as yet, although he can speak simple sentences and phrases. Had 1.8 liters in, 1.7 liters out. He remains on TPN at this time. REVIEW OF SYSTEMS: Cannot get reliably as he altered. OBJECTIVE VITALS: Afebrile, vital signs noted per electronic record. GENERAL: No acute distress, alert and calm. HEENT: Normocephalic, atraumatic. NECK: Supple. Throat midline. LUNGS: Bilateral air entry, decreased breath sounds, decreased effort. CARDIOVASCULAR: S1 and S2. No murmurs, rubs or gallops. ABDOMEN: Soft and nontender. EXTREMITIES: No clubbing, no cyanosis. There is trace edema. INTEGUMENT: No rash. No purpura. LABS: Potassium 3.5, 46 BUN, 1.6 creatinine, 4.6 white count, 32 hematocrit, 259 platelets. IMPRESSION AND PLAN 1. Acute respiratory failure, extubated. 2. Admit for superior mesenteric artery ischemia, bowel ischemia. 3. Postoperative state, status post multiple small and large bowel resection. 4. Chronic kidney disease. 5. Treat for possible although antibiotics are now finished. 6. Encephalopathy, late effects of cerebrovascular accident and other delirium toxic metabolic. Continue to give the patient time to get better. Aggressive rehab is recommended. The patient continues at this time on TPN. However, still n.p.o. Generally have his mouth wet for now until he is better. Aggressive PT and swallow evaluations when he is better mentally. Follow up closely. Antibiotics are off. Will follow up on this. Continue enoxaparin. Will follow up. Glucose control steadily. Job#: [id number]
[2017-10-31] MEDS: CENTRAL TPN FORMULA 1 BAG IV SCH (20:14)
[2017-10-31] MEDS: PANTOPRAZOLE 40 MG 10ML VIAL IV SCH (20:42)
[2017-10-31] MEDS ORDERED: ENOXAPARIN SOD INJ 60 MG/0.6 ML SYR SC ONE (20:54)
[2017-10-31] MEDS: ENOXAPARIN SOD INJ 60 MG/0.6 ML SYR SC SCH (21:00)
[2017-11-01] VITALS (24 sets, daily range): BP systolic 138–177; BP diastolic 62–85
[2017-11-01 05:27] LABS: ANION GAP 12.3 mmol/L (8-16); CALCIUM 8.6 mg/dL (8.4-10.2); CREATININE, SERUM 1.2 mg/dL (0.72-1.25); MAGNESIUM 1.8 MG/DL (1.3-2.1); POTASSIUM 3.3 mmol/L (3.5-5.1)
[2017-11-01] MEDS: DEXTROSE 5% 1,000 ML IV SCH ×2 (05:56→21:00)
[2017-11-01] MEDS: INSULIN REGULAR, HUMAN 100 UNIT/1 ML 3ML VIAL SQ SCH ×3 (05:59→11:48)
[2017-11-01 06:01] LABS: BASOPHILS % 0.2 % (0.0-1.0); EOSINOPHILS # (AUTO) 0.1 (0.0-0.4); EOSINOPHILS % 2.1 % (0.0-6.0); HEMATOCRIT 29.7 % (38.2-49.6); HEMOGLOBIN 9.8 g/dL (14.0-18.0); LYMPHOCYTES # (AUTO) 1.1 (1.0-3.2); LYMPHOCYTES % 22.8 % (18.0-39.1); MEAN CORPUSCULAR HEMOGLOBIN 30.6 pg (28-32); MEAN CORPUSCULAR VOLUME 92.8 fL (81-99); MONOCYTES # (AUTO) 0.4 (0.2-0.8); NEUTROPHILS # (AUTO) 3.2 (2.1-6.9); NEUTROPHILS % 64.7 % (38.7-80.0); PLATELET COUNT 291 x10e3/uL (140-360); RED CELL DISTRIBUTION WIDTH 13.3 % (11.7-14.4)
[2017-11-01] MEDS: INSULIN DETEMIR 100 UNIT/ML PEN SQ SCH (08:41)
[2017-11-01] MEDS: HYDRALAZINE HCL 20 MG/ML VIAL IV PRN (10:28)
[2017-11-01] MEDS ORDERED: POTASSIUM CHLORIDE 20MEQ/15ML UDC NG NR ×2 (12:30)
[2017-11-01] MEDS: INSULIN LISPRO 100 UNIT/1 ML 3ML VIAL SQ SCH ×2 (16:58→22:30)
[2017-11-01] MEDS: ENOXAPARIN SOD INJ 60 MG/0.6 ML SYR SC SCH (17:03)
--- NOTE | 2017-11-01 18:13 | Progress Note ---
DATE: November 01, 2017 PULMONARY MEDICINE PROGRESS NOTE SUBJECTIVE: Mr. Bailey was seen and examined at bedside. A 1.8 liters in, 1.[address] out[address] in place. Blood pressure is reasonable, mildly high. Patient so far tolerating clear liquid diet. Patient with better mentation and better interaction. REVIEW OF SYSTEMS: They will be obtained as he is still altered. OBJECTIVE VITALS: Afebrile, vital signs noted per the chart record. GENERAL: No acute distress, alert, calm, and talkative. HEENT: Normocephalic, atraumatic. NECK: Supple. Throat midline. LUNGS: Bilateral air entry, limited, decreased air entry. CARDIOVASCULAR: S1 and S2. No murmurs, rubs or gallops. ABDOMEN: Soft and nontender. EXTREMITIES: No clubbing, no cyanosis. There is trace edema. INTEGUMENT: No rash. No purpura. LABS: Potassium 3.3, BUN 37, creatinine 1.6. White count 5, hematocrit 30, and platelets 291. IMPRESSION AND PLAN 1. Postoperative stay, status post multiple small and large bowel resection. 2. Ischemic bowel, associated superior mesenteric artery related ischemia. 3. Multiple peripheral vascular disease. 4. Encephalopathy, late effects of stroke as well as superimposed acute metabolic toxic processes. 5. Acute respiratory failure, extubated. 6. Hypertension. 7. Diabetes so far, uncontrolled. Continue slow control diabetes. Blood pressure control can also be slow as we preferred high rather than low. Continue to mobilize the patient. Avoid neurotoxic agents. Give him time to awake. He will likely be recommended for rehab course. Continue TPN as well as clear liquid diet. Titration of that will be per surgeon. Job#: [id number] LISBET
[2017-11-01] MEDS ORDERED: CENTRAL TPN FORMULA 1 BAG IV SCH (20:00)
[2017-11-01] MEDS: PANTOPRAZOLE 40 MG 10ML VIAL IV SCH (21:30)
[2017-11-02] VITALS (14 sets, daily range): BP systolic 144–175; BP diastolic 67–86
[2017-11-02 05:09] LABS: BASOPHILS % 0.2 % (0.0-1.0); EOSINOPHILS # (AUTO) 0.1 (0.0-0.4); EOSINOPHILS % 1.1 % (0.0-6.0); LYMPHOCYTES # (AUTO) 1.1 (1.0-3.2); LYMPHOCYTES % 20.9 % (18.0-39.1); MEAN CORPUSCULAR HEMOGLOBIN 30.2 pg (28-32); MEAN CORPUSCULAR HGB CONC 33.3 g/dL (31-35); MEAN CORPUSCULAR VOLUME 90.6 fL (81-99); MONOCYTES # (AUTO) 0.4 (0.2-0.8); MONOCYTES % 8.4 % (4.4-11.3); NEUTROPHILS # (AUTO) 3.6 (2.1-6.9); NEUTROPHILS % 68.8 % (38.7-80.0); PLATELET COUNT 319 x10e3/uL (140-360); RED BLOOD COUNT 3.31 x10e6/uL (4.3-5.7); RED CELL DISTRIBUTION WIDTH 12.8 % (11.7-14.4)
[2017-11-02 06:54] LABS: ANION GAP 15.6 mmol/L (8-16); CREATININE, SERUM 1.2 mg/dL (0.9-1.3); POTASSIUM 3.6 mmol/L (3.6-5.1)
[2017-11-02] MEDS: INSULIN LISPRO 100 UNIT/1 ML 3ML VIAL SQ SCH ×4 (07:37→21:22)
[2017-11-02] MEDS: INSULIN DETEMIR 100 UNIT/ML PEN SQ SCH (08:07)
[2017-11-02 08:11] LABS: CALCIUM 8.7 mg/dL (8.4-10.2)
[2017-11-02] MEDS: CARVEDILOL 3.125 MG TAB PO SCH ×2 (08:43→16:44)
[2017-11-02] MEDS: AMIODARONE HCL 200 MG TAB PO SCH (08:43)
[2017-11-02] MEDS ORDERED: DEXTROSE 10% 1,000 ML IV ONE (11:30)
[2017-11-02] MEDS ORDERED: DEXTROSE 10% 200 ML IV ONE (11:50)
--- NOTE | 2017-11-02 13:48 | Progress Note ---
DATE: November 02, 2017 PULMONARY MEDICINE PROGRESS NOTE SUBJECTIVE: Mr. Bailey was seen and examined at bedside. He continues to have slow progress. Patient was two-person maximum assist to get up. He is voiding with incontinence. He is having bowel movements with incontinence. Patient did well with swallow evaluation, and diet is being upgraded. REVIEW OF SYSTEMS: No headaches, no rash. OBJECTIVE VITAL SIGNS: Afebrile. Vital signs noted per electronic record. GENERALLY: No acute distress, alert and calm. HEENT: Normocephalic, atraumatic. NECK: Supple. Throat midline. LUNGS: Bilateral air entry, a few rhonchi. CARDIOVASCULAR: S1 and S2. No murmurs, rubs or gallops. ABDOMINAL: Soft, nontender. EXTREMITIES: No clubbing, no cyanosis. there is no edema. INTEGUMENT: No rash. No purpura. LABS: BUN 37, creatinine 1.2, potassium 3.6. White count 5, hematocrit 30, with platelets 392. IMPRESSION AND PLAN 1. Acute respiratory failure, extubated. 2. Acute/chronic kidney insufficiency, resolved. 3. Weakness, significant. 4. Encephalopathy, much better, still with some deficits fluctuating. 5. Admit with ischemic bowel, status post gastrointestinal surgery with resection. PLAN: Continue current treatment. Continue to give the patient TPN, which hopefully we can stop soon if the patient is tolerating diet well. Augment diet today and see if he can start regaining his appetite. Patient should have continued therapy. Follow up closely. Job#: [id number] EV
[2017-11-02] MEDS: DEXTROSE 5% 1,000 ML IV SCH (15:51)
[2017-11-02] MEDS: ENOXAPARIN SOD INJ 60 MG/0.6 ML SYR SC SCH (16:44)
[2017-11-02] MEDS: PANTOPRAZOLE 40 MG 10ML VIAL IV SCH (21:13)
[2017-11-03] VITALS (7 sets, daily range): BP systolic 137–163; BP diastolic 62–84
[2017-11-03] MEDS: DEXTROSE 5% 1,000 ML IV SCH ×2 (04:26→21:14)
[2017-11-03] MEDS: INSULIN LISPRO 100 UNIT/1 ML 3ML VIAL SQ SCH ×4 (07:30→21:15)
[2017-11-03] MEDS: AMIODARONE HCL 200 MG TAB PO SCH (08:35)
[2017-11-03] MEDS: CARVEDILOL 3.125 MG TAB PO SCH ×2 (08:35→17:03)
[2017-11-03] MEDS: INSULIN DETEMIR 100 UNIT/ML PEN SQ SCH (09:00)
--- NOTE | 2017-11-03 13:36 | Progress Note ---
DATE: November 03, 2017 PULMONARY MEDICINE PROGRESS NOTE SUBJECTIVE: Mr. Bailey was seen and examined at bedside. He continues to have slow progress. He is able to sit up more. He still requires a lot of assist to mobilize. The patient is able to start eating better, and he is tolerating a more solid diet. REVIEW OF SYSTEMS: No headaches, no rash. OBJECTIVE VITAL SIGNS: Afebrile. Vital signs noted per electronic record. GENERAL: No acute distress, alert, calm, forgetful. HEENT: Normocephalic, atraumatic. NECK: Supple. Throat midline. LUNGS: Bilateral air entry, rare rhonchi. CARDIOVASCULAR: S1 and S2. No murmurs, rubs or gallops. ABDOMINAL: Soft, nontender. EXTREMITIES: No clubbing, no cyanosis. There is trace edema. INTEGUMENT: No rash. No purpura. LABS: BUN 37, 1.2 creatinine, 5 white count, 30 hematocrit, 319 platelets. IMPRESSION AND PLAN 1. Postoperative state, status post multiple small and large bowel resections. 2. Small bowel/large bowel ischemia, superior mesenteric artery lesion. 3. Delirium/encephalopathy, underlying dementia, mild. 4. History of cerebrovascular accident. 5. Weakness. Continue aggressive nutrition p.o. DVT prophylaxis ongoing. Continue current medications. Continue insulin for control. Mobilize the patient. Aggressive PT and OT. Job#: [id number]
[2017-11-03] MEDS: ENOXAPARIN SOD INJ 60 MG/0.6 ML SYR SC SCH (17:03)
[2017-11-03] MEDS: NYSTATIN 100,000 UNITS/GM CRM 30GM TUBE TOP SCH ×2 (17:03→20:00)
[2017-11-03] MEDS: NYSTATIN 15 GM POWDER UD BTL TOP SCH (18:05)
[2017-11-03] MEDS: PANTOPRAZOLE 40 MG 10ML VIAL IV SCH (21:14)
[2017-11-04] VITALS (8 sets, daily range): BP systolic 119–167; BP diastolic 57–72
[2017-11-04] MEDS: INSULIN LISPRO 100 UNIT/1 ML 3ML VIAL SQ SCH ×4 (07:30→21:00)
[2017-11-04] MEDS: DEXTROSE 5% 1,000 ML IV SCH (07:50)
[2017-11-04] MEDS: INSULIN DETEMIR 100 UNIT/ML PEN SQ SCH (07:51)
[2017-11-04] MEDS: CARVEDILOL 3.125 MG TAB PO SCH (08:00)
[2017-11-04] MEDS: AMIODARONE HCL 200 MG TAB PO SCH (09:00)
[2017-11-04] MEDS: NYSTATIN 100,000 UNITS/GM CRM 30GM TUBE TOP SCH ×3 (09:00→21:52)
[2017-11-04] MEDS: NYSTATIN 15 GM POWDER UD BTL TOP SCH ×2 (09:01→17:07)
[2017-11-04] MEDS: MORPHINE SULFATE INJ 4 MG/ML INJ IV PRN ×3 (10:10→17:15)
[2017-11-04] MEDS: AMLODIPINE BESYLATE 5 MG TAB PO SCH (13:00)
--- NOTE | 2017-11-04 13:31 | Progress Note ---
DATE: November 04, 2017 PULMONARY MEDICINE PROGRESS NOTE SUBJECTIVE: Mr. Bailey was seen and examined at bedside. The patient continues to have steady progress. Today, he was able to walk reportedly. The patient was given 97% room air FiO2. Able to void, and 5 bowel movements were reported. TPN was stopped. REVIEW OF SYSTEMS: No new epistaxis. No chest pain. OBJECTIVE VITAL SIGNS: Afebrile. Vital signs noted per electronic record. GENERAL: No acute distress, alert, calm. HEENT: Normocephalic, atraumatic. NECK: Supple. Throat midline. LUNGS: Bilateral air entry, a few rare rhonchi. CARDIOVASCULAR: S1 and S2. No murmurs, rubs or gallops. ABDOMEN: Soft, nontender. EXTREMITIES: No clubbing, no cyanosis. There is trace edema. INTEGUMENT: No rash. No purpura. LABS: BUN 37, 1.2 creatinine, 3.6 potassium, 5 white count, 30 hematocrit, 319 platelets. IMPRESSION AND PLAN 1. Acute respiratory failure, extubated. 2. Weakness. 3. Addgw-kz-zytemun kidney failure. 4. Ischemic bowel. 5. Postoperative state, status post resection of ischemic and necrotic bowel, small and large bowel sections. 6. Continue close followup. TPN was stopped. The remainder of the electrolytes will continue to be checked. Continue to ensure appropriate bowel movements. He needs aggressive rehab now. In a few weeks or months, if his legs are bothering him, he can be considered for lower extremity angiography and possible intervention if needed. Job#: [id number]
[2017-11-04] MEDS: CARVEDILOL 12.5 MG TAB PO SCH (17:00)
[2017-11-04] MEDS ORDERED: CARVEDILOL 3.125 MG TAB PO SCH (17:00)
[2017-11-04] MEDS: ENOXAPARIN SOD INJ 60 MG/0.6 ML SYR SC SCH (17:00)
[2017-11-04] MEDS ORDERED: SIMVASTATIN 40 MG TAB PO SCH (21:00)
[2017-11-05] VITALS: BP 122/58
[2017-11-05 04:00] VITALS: BP 105/55
[2017-11-05 05:53] LABS: BASOPHILS % 0.3 % (0.0-1.0); EOSINOPHILS # (AUTO) 0.1 (0.0-0.4); EOSINOPHILS % 1.1 % (0.0-6.0); HEMATOCRIT 30.9 % (38.2-49.6); HEMOGLOBIN 10.4 g/dL (14.0-18.0); LYMPHOCYTES # (AUTO) 1.2 (1.0-3.2); LYMPHOCYTES % 18.8 % (18.0-39.1); MEAN CORPUSCULAR HEMOGLOBIN 30.4 pg (28-32); MEAN CORPUSCULAR HGB CONC 33.7 g/dL (31-35); MEAN CORPUSCULAR VOLUME 90.4 fL (81-99); MONOCYTES # (AUTO) 0.6 (0.2-0.8); MONOCYTES % 9.3 % (4.4-11.3); NEUTROPHILS # (AUTO) 4.4 (2.1-6.9); NEUTROPHILS % 69.7 % (38.7-80.0); PLATELET COUNT 366 x10e3/uL (140-360); RED BLOOD COUNT 3.42 x10e6/uL (4.3-5.7); RED CELL DISTRIBUTION WIDTH 13.2 % (11.7-14.4)
[2017-11-05 06:16] LABS: ALBUMIN 2.5 g/dL (3.5-5.0); ALBUMIN/GLOBULIN RATIO 0.7 (0.8-2.0); ANION GAP 15.2 mmol/L (8-16); CALCIUM 8.9 mg/dL (8.4-10.2); CREATININE, SERUM 1.44 mg/dL (0.72-1.25); POTASSIUM 4.2 mmol/L (3.5-5.1)
[2017-11-05] MEDS ORDERED: PANTOPRAZOLE SOD 40 MG TABEC PO SCH (07:30)
[2017-11-05] MEDS: INSULIN LISPRO 100 UNIT/1 ML 3ML VIAL SQ SCH ×3 (07:30→16:30)
[2017-11-05] MEDS: MORPHINE SULFATE 2 MG/ML SYR IV PRN ×2 (07:55→15:02)
[2017-11-05] MEDS: CARVEDILOL 12.5 MG TAB PO SCH ×2 (08:00→17:00)
[2017-11-05 08:10] VITALS: BP 129/60
[2017-11-05] MEDS: INSULIN DETEMIR 100 UNIT/ML PEN SQ SCH (08:16)
[2017-11-05 08:27] VITALS: BP 129/60
[2017-11-05] MEDS: AMIODARONE HCL 200 MG TAB PO SCH (08:46)
[2017-11-05] MEDS: AMLODIPINE BESYLATE 5 MG TAB PO SCH (08:46)
[2017-11-05] MEDS: NYSTATIN 100,000 UNITS/GM CRM 30GM TUBE TOP SCH ×2 (08:46→15:00)
[2017-11-05] MEDS ORDERED: BALSAM PERU/CASTOR OIL 60 GM OINT...G. TP SCH (09:00)
[2017-11-05] MEDS ORDERED: COLLAGENASE OINTMENT 30 GM TUBE TP SCH (09:00)
[2017-11-05] MEDS: CLONIDINE HCL 0.1 MG/24 HR 1 EA PATCH TOP SCH (10:45)
[2017-11-05] MEDS: NYSTATIN 15 GM POWDER UD BTL TOP SCH (11:00)
--- NOTE | 2017-11-05 13:38 | Progress Note ---
DATE: November 05, 2017 PULMONARY MEDICINE PROGRESS NOTE SUBJECTIVE: Mr. Bailey was seen and examined at bedside. He continues to have slow progress. He is using the restroom. He is able to walk with assistance. He also was trying to climb over the side rails of the bed and is deemed as a fall risk. REVIEW OF SYSTEMS: No headache. OBJECTIVE VITAL SIGNS: Afebrile. Vital signs noted per electronic record. GENERAL: No acute distress. HEENT: Normocephalic. NECK: Supple. LUNGS: Bilateral air entry. CARDIOVASCULAR: S1 and S2. ABDOMEN: Postoperative state. INTEGUMENT: No rash. EXTREMITIES: Trace edema. IMPRESSION AND PLAN 1. Njnsy-cr-emhahdd kidney failure. 2. Weakness. 3. Obesity. 4. Encephalopathy, delirium and mild dementia. 5. Postoperative state, status post ischemic bowel and surgery for it. Continue serial followup. Slow improvement. Continue aggressive rehab. Consideration for home rehab versus in-hospital rehab is being made. Continue optimal nutrition. Antibiotics have now been on hold, and we are following. Job#: [id number]
[2017-11-05 16:00] VITALS: BP 136/62
[2017-11-05] MEDS ORDERED: PROMETHAZINE HCL 25 MG TAB PO PRN (16:45)
[2017-11-05] MEDS: ENOXAPARIN SOD INJ 60 MG/0.6 ML SYR SC SCH (17:00)
--- NOTE | 2017-11-05 19:46 | Consultation ---
DATE OF CONSULTATION: October 26, 2017 CONSULTATION TO: Dr. Jorge Carvalho HISTORY: Ms. Bailey is an 82-year-old white male referred to me for evaluation of anemia after having had surgeries for superior mesenteric artery thrombosis By Dr. Paresh Calle on October 23, 2017. The patient had exploratory laparotomy, right hemicolectomy, and small bowel resection. The patient subsequently was intubated and sent to the ICU, subsequently referred to me for further evaluation. HISTORY OF PAST ILLNESSES: History of bladder carcinoma, history of diabetes mellitus, history of peripheral neuropathy, history of having had a left CVA, history of hypertension, history of hyperlipidemia. The patient had presented with GI bleed. The patient also had a subdural hematoma evacuated in 2000, history of aortic stenosis, history of chronic renal failure. SOCIAL HISTORY: Noncontributory. FAMILY HISTORY: Noncontributory. ALLERGIES: REPORTED NONE. MEDICATIONS: At this time: 1. Metronidazole. 2. Zosyn. 3. Sodium chloride. 4. Insulin. 5. Lovenox. 6. Protonix. 7. Hydromorphone. REVIEW OF SYSTEMS: HEENT: Normal. CARDIAC: Hypertension, hyperlipidemia. RESPIRATORY: At the present time intubated. GI: SMA thrombosis causing gangrenous bowel. : History of bladder cancer. MUSCULOSKELETAL: Normal. SKIN AND BREASTS: Normal. NEUROENDOCRINE: History of diabetes mellitus. PHYSICAL EXAMINATION: GENERAL: A rather obese male, intubated, anemic. HEENT: No palpable adenopathy. HEART: Within normal limits. LUNGS: Coarse crepitations. ABDOMEN: Midline scar of surgery seen. RECTAL: Deferred. CENTRAL NERVOUS SYSTEM: Essentially normal. EXTREMITIES: Essentially normal. LABS: Today shows a hemoglobin of 9.2, hematocrit of 27.7, white count of 3400, platelets 131,000. BUN 49, creatinine 2.05. Sodium 141, potassium 3.7, chloride is 111, CO2 18. IMPRESSION: 1. History of bladder cancer. 2. Diabetes mellitus. 3. History of peripheral neuropathy. 4. History of left cerebrovascular accident. 5. History of hypertension. 6. History of hyperlipidemia. 7. History of gastrointestinal bleed. 8. History of subdural hematoma in 2000. 9. History of aortic stenosis. 10. Chronic renal failure. 11. 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 12. Status post right hemicolectomy and small bowel resection. 13. Respiratory failure. 14. History of lung cancer, resected in the past. 15. Anemia of blood loss. PLAN, COMMENTS, AND SUGGESTIONS: Will watch the patient carefully. I will confine myself to hematology. Blood transfusion will be given to the patient if needed. Eventually the patient should be on long-term anticoagulation because of SMA artery thrombosis. Thank you. Job#: [id number] cc:MD PARESH HUTCHISON MD MAURICE HADDAD, MD MOHAMED JEROUDI, MD
--- OUTSIDE RECORDS SUMMARY | 2017-11-12 07:54 | XMS REPORT ---
Author [facility] Address Unknown Phone Unavailable Care Team Providers [facility] Name Role Phone ELIO CARVALHO Unavailable Unavailable TRAMAINE ROSE Unavailable Unavailable Payers Payer Name Policy Type Policy Number Effective Date Expiration Date Problems This patient has no known problems. Allergies, Adverse Reactions, Alerts Allergy Name Allergy Type Status Severity Reaction(s) Onset Date Inactive Date Treating Clinician Comments No Known Allergies DA Active U 2017-11-05 00:00:00 Medications This patient has no known medications. Results Test Description Test Time Test Comments Text Results Atomic Results Result Comments CT BRAIN WO 2017-10-29 15:11:00 [place] [address] Patient Name: ARNULFO SPAULDING MR #: [id number] : 1935 Age/Sex: 82/M Req #: [id number] Adm Physician: ELIO CARVALHO MD Ordered by: AL CÁRDENAS M.D. Report #: [id number] Location: ICU Room/Bed: ICU [facility] Procedure: [id number] CT/CT BRAIN WO Exam Date: Exam Time: 1445 REPORT STATUS: Signed Exam: Head CT without contrast History: Encephalopathy, altered mental status Comparison studies: Multiple prior brain MRIs and head CTs which date to brain MRI of 12/08/2011, most recent brain MRI of 10/23/2017. Technique : Axial images were obtained from the skull base to the vertex. Coronal and sagittal images reconstructed from the axial data. Dose modulation, iterative reconstruction, and/or weight based adjustment of the mA/kV was utilized to reduce the radiation dose to as low as reasonably achievable. Radiation dose: Total DLP: 1036 mGy*cm. Estimated effective dose: DLP x 0.015 Intravenous contrast: None Findings: Scalp: No abnormalities. Bones: No fractures, blastic or lytic lesions. Brain sulci : Mild to probably. Ventricles: Mild extra dilatation. No hydrocephalus. 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 No masses, no fluid collection. Parenchyma: No mass, acute hemorrhage or acute cortical vascular insults. Chronic cortical/ subcortical vascular insult in the right parietal lobe extends into the right superior temporal lobe and right lateral occipital lobe in the distal right MCA territory and right MCA-CLASSIFIED [employer] CLERK cortical border zone. Unchanged small chronic lacunar infarct in the right frontal centrum semiovale, and small cortical/subcortical insults in the bilateral cerebellar hemispheres. Small chronic hemorrhagic insult regional to the posterior right super frontal sulcus is seen on the previous brain MRIs beyond resolution of CT. A few scattered hypodensities in the supratentorial white matter are nonspecific most compatible with chronic microvascular ischemic changes. Sellar/ suprasellar region: No abnormalities. Craniocervical junction: Patent foramen magnum. No Chiari one malformation. Included paranasal sinuses: Small nonspecific fluid/secretions with mucosal thickening in the left sphenoid sinus. Incidental findings: Atherosclerotic calcifications in the carotid siphons and left intradural vertebral artery. IMPRESSION: No acute abnormalities. No changes from the previous brain MRI of 10/23/2017 when allowing for differences in technique. Chronic findings: 1. Mild generalized volume loss. 2. Mild chronic microvascular ischemic changes. 3. Chronic insults: right parietal-occipitotemporal, right frontal centrum semiovale and bilateral cerebellar hemispheres. 4. Incidental small right middle cranial fossa arachnoid cyst. Signed by: Dr. Andrei King M.D. on 10/29/2017 3:22 PM Dictated By: ANDREI KING MD 21 Transcribed By: NADIRA on 10/29/171521 COPY TO: AL CÁRDENAS MD CHEST SINGLE (PORTABLE) 2017-10-29 06:03:00 [place] [address] Patient Name: ARNULFO SPAULDING MR #: [id number] : 1935 Age/Sex: 82/M Req #: [id number] Adm Physician: ELIO CARVALHO MD Ordered by: BHASKAR SEPULVEDA MD Report #: [id number] Location: ICU Room/Bed: ICU formerly [facility] Procedure: [id number] DX/CHEST SINGLE ( PORTABLE) Exam Date: 10/29/17 Exam Time: 514 REPORT STATUS: Signed CHEST SINGLE (PORTABLE), 10/29/2017 5:00 AM Technique: CHEST SINGLE (PORTABLE) Comparison: Previous day Clinical history : Respiratory failure Findings: See Impression Impression: 1. Lines/Tubes: Removal of ET tube, NG tube. Right IJ central venous catheter remains in place over the brachiocephalic SVC junction. 2. Stable cardiomediastinal silhouette. 3. Unchanged bibasilar opacities, possibly atelectasis, aspiration or infection. Small effusions. Signed by: Dr Milan Angel MD on 10/29/2017 6:07 AM Dictated By: MILAN ANGEL MD 6 Transcribed By: NADIRA on 10/29/17606 COPY TO: BHASKAR SEPULVEDA MD, [facility] CHEST SINGLE (PORTABLE) 2017-10-28 07:23:00 [facility] [address] [place], [place] [address] Patient Name: ARNULFO SPAULDING MR #: [id number] : 1935 Age/Sex: 82/M Req #: [id number] Adm Physician: ELIO CARVALHO MD Ordered by: BHASKAR SEPULVEAD MD Report #: [id number] Location: ICU Room/Bed: ICU formerly [facility] Procedure: [id number] DX/CHEST SINGLE ( PORTABLE) Exam Date: 10/28/17 Exam Time: 0515 REPORT STATUS: Signed Examination: Single AP view of the chest. COMPARISON: 10/27/2017 INDICATION: Pneumonia DISCUSSION: See impression IMPRESSION: 1. Endotracheal tube, enteric tube, and right internal jugular central venous catheter are stable in position. 2. Aeration of the lung bases has slightly improved relative to 10/27/2017. 3. Stable cardiomediastinal contour with persistent pulmonary venous congestion. Signed by: Dr. Andrei Tobar M.D. on 10/28/2017 7:25 AM Dictated By: ANDREI TOBAR MD 4 COPY TO: BHASKAR SEPULVEDA MD, [facility] CHEST SINGLE (PORTABLE) 2017-10-27 07:22:00 [place] [id number] [place], [place] [address] Patient Name: ARNULFO SPAULDING MR #: [id number] : 1935 Age/Sex: 82/M Req #: [id number] Adm Physician: ELIO CARVALHO MD Ordered by: JOHN CALLE MD Report #: [id number] Location: ICU Room/Bed : ICU 190- Procedure: [id number] DX/CHEST SINGLE ( PORTABLE) Exam Date: 10/27/17 Exam Time: 0535 REPORT STATUS: Signed Examination: Single AP view of the chest. COMPARISON: 10/26/2017 INDICATION: Postop DISCUSSION: See impression IMPRESSION: Endotracheal tube, enteric tube, and right internal jugular central venous catheter are stable in position. Worsening bibasilar airspace opacities compatible with atelectasis. Trace right pleural effusion is suspected. Stable cardiomediastinal contour with pulmonary venous congestion. Signed by: Dr. Andrei Tobar M.D. on 2017 7:25 AM Dictated By: ANDREI TOBAR MD 4 Transcribed By: NADIRA on 10/27/17724 COPY TO: JOHN CALLE MD CHEST SINGLE (PORTABLE) 2017-10-26 06:55:00 [place] [address] Patient Name: ARNULFO SPAULDING MR #: [id number] : 1935 Age/Sex: 82/M Req #: [id number] Adm Physician: ELIO CARVALHO MD Ordered by: JOHN CALLE MD Report #: [id number] Location: ICU Room/Bed : ICU 190- Procedure: [id number] DX/CHEST SINGLE ( PORTABLE) Exam Date: 10/26/17 Exam Time: 0535 REPORT STATUS: Signed EXAMINATION: CHEST SINGLE (PORTABLE) INDICATION: Post surgery COMPARISON: 10/25/2017 FINDINGS: TUBES and LINES: Tubes and lines are stable with endotracheal, NG tube and right IJ central line catheter LUNGS: Lungs are not well inflated. There are bibasilar atelectasis. There is mild prominence of the central pulmonary vasculature, consistent with pulmonary venous congestion. PLEURA: No pleural effusion or pneumothorax. HEART AND MEDIASTINUM: Cardiac size is mildly enlarged. There are atherosclerotic calcifications within the aorta. BONES AND SOFT TISSUES: No acute osseous lesion. Soft tissues are unremarkable. UPPER ABDOMEN: No free air under the diaphragm. IMPRESSION: Stable chest with evidence of bibasilar atelectasis Signed by: Dr. Mehdi Saucedo M.D. on 10/26/2017 6:56 AM Dictated By: MEHDI BERROIS MD 0656 Transcribed By: NADIRA on 10/26/17 0656 COPY TO: JOHN CALLE MD CHEST SINGLE (PORTABLE) 2017-10-25 06:52:00 [place] [address] Patient Name: ARNULFO SPAULDING MR #: [id number] : 1935 Age/Sex: 82/M Req #: [id number] Adm Physician: ELIO CARVALHO MD Ordered by: JOHN CALLE MD Report #: [id number] Location: ICU Room/Bed : ICU formerly [facility] Procedure: [id number] DX/CHEST SINGLE ( PORTABLE) Exam Date: 10/25/17 Exam Time: 0540 REPORT STATUS: Signed EXAMINATION: CHEST SINGLE (PORTABLE) INDICATION: Postsurgical COMPARISON: 10/24/2017 FINDINGS: AP view TUBES and LINES: Right IJ central line, endotracheal tube, nasogastric tube are unchanged. LUNGS: Lungs are not well inflated. Left lung is clear. Right lung base atelectasis. There is no evidence of pneumonia or pulmonary edema. PLEURA: No pleural effusion or pneumothorax. HEART AND MEDIASTINUM: The cardiomediastinal silhouette is unremarkable. BONES AND SOFT TISSUES: No acute osseous lesion. Soft tissues are unremarkable. UPPER ABDOMEN: No free air under the diaphragm. IMPRESSION: 1. Stable tubes and lines. 2. Persistent low lung volumes especially the right lung with mediastinal shift to the right secondary to atelectasis. Signed by: Dr. Mehdi Saucedo M.D. on 2017 6:53 AM Dictated By: MEHDI BERRIOS MD 06 Transcribed By: NADIRA on 0653 COPY TO: JOHN CALLE MD CHEST SINGLE (PORTABLE) 2017-10-24 08:48:00 [place] [address] Patient Name: ARNULFO SPAULDING MR #: [id number] : 1935 Age/Sex: 82/M Req #: [id number] Adm Physician: ELIO CARVALHO MD Ordered by: ELIO CARVALHO MD Report #: [id number] Location: ICU Room/Bed: ICU formerly [facility] Procedure: [id number] DX/CHEST SINGLE ( PORTABLE) Exam Date: 10/24/17 Exam Time: 0645 REPORT STATUS: Signed EXAMINATION: CHEST SINGLE (PORTABLE) INDICATION: Intubated. Rectal bleeding. COMPARISON: Chest x-ray 2017 FINDINGS: AP view TUBES and LINES: Right IJ central line, endotracheal tube, nasogastric tube are unchanged. LUNGS: Lungs are not well inflated. Persistent mediastinal shift to the right. Left lung is clear. Right lung base atelectasis. There is no evidence of pneumonia or pulmonary edema. PLEURA: No pleural effusion or pneumothorax. HEART AND MEDIASTINUM: The cardiomediastinal silhouette is unremarkable. BONES AND SOFT TISSUES: No acute osseous lesion. Soft tissues are unremarkable. UPPER ABDOMEN: No free air under the diaphragm. IMPRESSION: 1. Stable tubes and lines. 2. Persistent low lung volumes especially the right lung with mediastinal shift to the right. Signed by : Dr. Jose Zaman M.D. on 10/24/2017 8:50 AM Dictated By: JOSE ZAMAN MD 0850 Transcribed By: NADIRA on 10/24/17 0850 COPY TO: ELIO CARVALHO MD CHEST SINGLE (PORTABLE) 2017-10-23 20:58:00 [place] [address] Patient Name: ARNULFO SPUALDING MR #: [id number] : 1935 Age/Sex: 82/M Req #: [id number] Adm Physician: ELIO CARVALHO MD Ordered by: ELIO CARVALHO MD Report #: [id number] Location: ICU Room/Bed: ICU formerly [facility] Procedure: [id number] DX/CHEST SINGLE ( PORTABLE) Exam Date: 10/23/17 Exam Time: 2044 REPORT STATUS: Signed EXAMINATION: CHEST SINGLE (PORTABLE) COMPARISON: Chest x-ray 10/22/2017 INDICATION: Intubated DISCUSSION: Frontal view of the chest obtained at 2046 hours. HEART AND MEDIASTINUM: Stable cardiomegaly and aortic ectasia LINES: Endotracheal tube terminates 3 to 4 cm above the chen. Enteric tube extends past the diaphragm. Right IJ catheter terminates in the SVC. LUNGS: Low lung volumes. Increasing right basilar atelectasis. No infiltrates in the left lung. PLEURA: No pleural effusion or pneumothorax. BONES AND SOFT TISSUES: No focal osseous lesion. The soft tissues are normal. IMPRESSION: Support devices as described above. No pneumothorax. Low lung volumes and right basilar atelectasis. Signed by: Dr. Ray Chino MD on 10/23/2017 8:59 PM Dictated By: RAY CHINO MD 58 Transcribed By : NADIRA on 10/23/172058 COPY TO: ELIO CARVALHO MD CTA ABD/PELVIS 2017-10-23 16:42:00 [place] [address] Patient Name: ARNULFO SPAULDING MR #: [id number] : 1935 Age/Sex: 82/M Req #: [id number] Adm Physician: ELIO CARVALHO MD Ordered by: JOHN CALLE MD Report #: [id number] Location: ICU Room/Bed: ICU formerly [facility] Procedure: CT/CTA ABD/PELVIS Exam Date: Exam Time: 1645 REPORT STATUS: Signed EXAM: CTA OF THE ABDOMINAL AORTA AND PELVIC ARTERIES INDICATION: COMPARISON: CT abdomen and pelvis 10/23/2017 and renal ultrasound . CT abdomen pelvis 08/28/2014 TECHNIQUE: Multi-detector CT technology was employed. CTA of the abdomen and pelvis was performed after the administration of IV contrast. IV CONTRAST: 100 mL of Isovue-370 ORAL CONTRAST: None COMPLICATIONS: None RADIATION DOSE: Total DLP: 730.8 mGy*cm Estimated effective dose: (DLP x 0.015 x size factor) mSv CTDIvol has been reviewed. It is below the limits set by the Radiation Protocol Committee (RPC). For optimization of anatomic evaluation, multiplanar reconstruction, maximum intensity projections, and advanced 3-D off-line postprocessing were performed on a dedicated stand-alone workstation under the direct supervision of the interpreting physician. FINDINGS: Potential study limitations: None. VASCULAR WITH ADVANCED 3-D OFF-LINE POSTPROCESSING: The abdominal aorta is small in the infrarenal segment and associated with diffuse circumferential moderate calcifications without significant obstruction but with a small lumen. Minimal luminal diameter is 1.3 cm at the bifurcation. There is no acute aortic pathology. The abdominal aorta measures: 2.5 cm at the supramesenteric segment 2.4 cm at the mesenteric segment 2.2 cm at the renal segment 1.9 cm at the mid infrarenal segment 1.3 cm at the aortic bifurcation. 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 The splenic artery is widely patent. 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 There is also diffuse calcified and noncalcified atherosclerotic changes of the distal SMA branches, which are very tiny adjacent to the small and large bowel. When compared to CT abdomen and pelvis from 2014, findings have progressed. The celiac axis and [place] are patent with associated mild nonobstructing atherosclerotic calcifications. There are 2 right and single left renal arteries which appear patent with associated atherosclerotic calcifications. This results in moderate to severe stenosis of the proximal left renal artery. The pelvic arteries are normal in caliber and contour. There are moderate to severe atherosclerotic changes of the pelvic arteries resulting in moderate right and severe left stenoses of the common iliac arteries. External and internal iliac arteries are patent with associated no significant obstructing calcified plaques. There is severe stenosis of the right common and visualized proximal superficial femoral artery. There appears to be a stent in place on the right. Mild stenosis of the distal common and proximal left superficial femoral arteries. 0.9 cm at the right common iliac artery 0.8 cm at the right external iliac artery 1.1 cm at the left common iliac artery 0.8 cm at the left external iliac artery LOWER CHEST: Unremarkable. ABDOMEN: The liver, gallbladder , spleen, and pancreas appear normal. Unchanged bilateral adrenal gland nodules likely adenomas, measuring up to 2.1 cm on the left. Few bilateral renal cysts. There is no abnormal mass or hydronephrosis. PELVIS: There is no significant retroperitoneal adenopathy. No free fluid or free air within the abdomen or pelvis. Again noted, there is diffuse pneumatosis within the distal ileum extending into the mesenteric vein and left main portal vein. There are also wall thickening of a few loops of jejunum in the left abdomen, better seen on series 3, image 68 and pelvis on image 132. Mild wall thickening of the rectum may be over estimated by poor distention. No wall thickening of the colon. Scattered diverticulosis throughout the sigmoid colon without diverticulitis. The urinary bladder appears normal. BONES: Advanced degenerative changes of the lumbar spine. IMPRESSION: 1. 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 Findings have progressed since 2015. 2. 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 3. Persistent pneumatosis of the terminal ileum as well as diffuse wall thickening of multiple loops of jejunum in the left abdomen. 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 Less likely appears to relate to infectious process given the severity of the vascular disease. 4. Diffuse atherosclerotic calcifications of the abdominal aorta without aneurysm, resulting in minimal luminal diameter of 1.3 cm at the bifurcation. No acute abdominal aortic pathology. 5. Moderate right and severe left proximal common iliac artery stenosis due to calcified plaques. Findings were discussed with Dr. Calle on 10/23/2017 at 4:45 PM. Signed by: Dr. Cintia Burdick M.D. on 10/23/2017 5: 02 PM Dictated By: CINTIA BURDICK MD 1702 Transcribed By: NADIRA on 1701 COPY TO: JOHN CALLE MD US PELVIC (NON OB) GOMEZ OR F/U 2017-10-23 15:36:00 [place] [address] Patient Name: ARNULFO SPAULDING MR #: [id number] : 1935 Age/Sex: 82/M Req #: [id number] Adm Physician: ELIO CARVALHO MD Ordered by: ELIO CARVALHO MD Report #: [id number] Location: ICU Room/Bed: ICU formerly [facility] Procedure: [id number] US/US PELVIC (NON OB) GOMEZ OR F/U Exam Date: Exam Time: REPORT STATUS: Signed EXAM: Renal Ultrasound INDICATION: Rectal bleeding, CKD COMPARISON: CT abdomen and pelvis 10/23/2017 and 08/28/2014 TECHNIQUE: Transverse and longitudinal images of the kidneys and bladder were obtained. FINDINGS: Right Kidney: Length: 11.5 cm Appearance: Normal echogenicity. Collecting system: No hydronephrosis Stones: None Cyst/Mass: 3.5 cm anechoic cyst in the inferolateral aspect of the right kidney, previously measured 2.5 cm but no significantly changed since 2014. Left Kidney: Length: 13 cm Appearance: Normal echogenicity. Collecting system: No hydronephrosis Stones: None Cyst/Mass: Few bilateral renal cysts with the larger in the upper pole measuring up to 2.8 cm, unchanged. Bladder: Moderate residual urine within the urinary bladder. Prevoid volume 390.4 cc, postvoid volume 182.3 cc. The prostate is mildly prominent measuring 4.7 x 2.2 x 3.9 cm. IMPRESSION: Stable simple bilateral renal cysts. No hydronephrosis. Moderate residual postvoiding volume in the urinary bladder. Mildly enlarged prostate. Signed by: Dr. Cintia Burdick M.D. on 10/23/2017 3:42 PM Dictated By: CINTIA BURDICK MD 1024 Transcribed By: NADIRA on 10/30/17 1024 COPY TO: ELIO CARVALHO MD US RENAL RETROPERITONEAL COMP 2017-10-23 15:36:00 [place] [address] Patient Name: ARNULFO SPAULDING MR #: [id number] : 1935 Age/Sex: 82/M Req #: [id number] [facility] Physician: ELIO CARVALHO MD Ordered by: CORRY GERARDO MD Report #: [id number] Location: ICU Room/Bed: [place] [address] Procedure: [id number] US/US RENAL RETROPERITONEAL COMP Exam Date: Exam Time: REPORT STATUS: Signed EXAM: Renal Ultrasound INDICATION: Rectal bleeding , CKD COMPARISON: CT abdomen and pelvis 10/23/2017 and 08/28/2014 TECHNIQUE: Transverse and longitudinal images of the kidneys and bladder were obtained. FINDINGS: Right Kidney: Length: 11.5 cm Appearance: Normal echogenicity. Collecting system: No hydronephrosis Stones: None Cyst/Mass: 3.5 cm anechoic cyst in the inferolateral aspect of the right kidney, previously measured 2.5 cm but no significantly changed since 2014. Left Kidney: Length: 13 cm Appearance: Normal echogenicity. Collecting system: No hydronephrosis Stones: None Cyst/ Mass: Few bilateral renal cysts with the larger in the upper pole measuring up to 2.8 cm, unchanged. Bladder: Moderate residual urine within the urinary bladder. Prevoid volume 390.4 cc, postvoid volume 182.3 cc. The prostate is mildly prominent measuring 4.7 x 2.2 x 3.9 cm. IMPRESSION: Stable simple bilateral renal cysts. No hydronephrosis. Moderate residual postvoiding volume in the urinary bladder. Mildly enlarged prostate. Signed by: Dr. Cintia Burdick M.D. on 10/23/2017 3:42 PM Dictated By: CINTIA BURDICK MD 1024 Transcribed By: NADIRA on 10/30/17 1024 COPY TO: CORRY GERARDO MD MRI BRAIN WO 2017-10-23 15:23:00 [place] [address] Patient Name: ARNULFO SPAULDING MR #: [id number] : 1935 Age/Sex: 82/M Req #: [id number] Adm Physician: ELIO CARVALHO MD Ordered by: PAL POTTS MD Report #: [id number] Location: MED/SURG2 Room/Bed: [facility] Procedure: [id number] MRI/MRI BRAIN WO Exam Date : Exam Time: REPORT STATUS: Signed Exam: Brain MRI without IV contrast History: Weakness Comparison studies: Brain MRI 06/02/2016, 09/20/2014 and 12/08/2011 Technique: Sagittal and axial T2 FS, axial DWI, axial T2*GRE, axial T1 FLAIR and axial coronal T2 FLAIR. Intravenous contrast: None Findings: Several pulse sequences are somewhat limited by artifacts related to patient motion. Scalp: Normal in signal. No masses. Bone marrow: Normal in signal intensity. Brain sulci: Mildly prominent.. Ventricles: Compensatory dilatation of the posterior body, atria, occipital horn of the right lateral ventricle, unchanged. No hydrocephalus . Extra axial spaces: Unchanged 4.0 x 3.0 cm right middle cranial fossa arachnoid cyst. Parenchyma: The inferior cerebellum lies outside imaged [id number] on the DWI sequence cannot be assessed. No abnormal restricted diffusion in the remaining brain parenchyma. No new increased T2 FLAIR signal changes in the right cerebellum to suggest new ischemic changes. Old right inferior parietal-occipitotemporal insult with encephalomalacia which was acute on 07/17/2011 (involves primarily right inferior parietal lobule, right superior middle temporal gyri, right lateral occipitotemporal and posterior subinsular region, superior and middle occipital gyri). Unchanged small chronic focal hemorrhagic cortical insult regional to the posterior right superior frontal sulcus chronic lacunar infarct in the right frontal centrum semiovale. Scattered and confluent- periventricular T2 FLAIR hyperintensities are chronic small vessel ischemic changes. Small chronic cortical/subcortical insults in the bilateral cerebellar hemispheres and in the left parietal lobe are unchanged.. Suprasellar region: No abnormalities. Craniocervical junction: Patent foramen magnum. No Chiari malformation. Vessels: Normal flow-voids in the arteries and sinuses. IMPRESSION: No acute intracranial abnormalities. No significant changes from the previous brain right 06/02/2016. Chronic findings: 1. 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 2. Mild chronic microvascular ischemic changes. 3. Incidental unchanged right middle cranial fossa arachnoid cyst. Signed by: Dr. Andrei King M.D. on 2017 4:01 PM Dictated By: ANDREI KING MD 1601 Transcribed By: NADIRA on 10/23/17 1601 COPY TO: PAL POTTS MD CT ABDOMEN/PELVIS WO 2017-10-23 12:48:00 [place] [address] Patient Name: ARNULFO SPAULDING MR #: [id number] : 1935 Age/Sex: 82/M Req #: [id number] Adm Physician: ELIO CARVALHO MD Ordered by: ELIO CARVALHO MD Report #: [id number] Location: MED/SURG2 Room/Bed: 200 Procedure: [id number] CT/CT ABDOMEN/PELVIS WO Exam Date: Exam Time: REPORT STATUS: Signed ADDENDUM #1 ADDENDUM: IMAGES FROM A DIFFERENT PATIENT WERE SENT INITIALLY TO THE PATIENT'S CHART AND WERE INTERPRETED. HOWEVER, SUBSEQUENT TO THE REPORT, IT WAS DETERMINED THAT THE WRONG PATIENT'S IMAGES WERE SENT. THE TECHNOLOGIST WAS NOTIFIED. THE CORRECT IMAGES WERE SUBSEQUENTLY SENT AND THE FOLLOWING IS THE CORRECT REPORT. PLEASE DISREGARD THE PRIOR REPORT. EXAM: CT Abdomen and Pelvis WITHOUT contrast INDICATION: Rectal bleeding COMPARISON: CT abdomen pelvis 08/28/2014. TECHNIQUE: Abdomen and pelvis were scanned utilizing a multidetector helical scanner from the lung base to the pubic symphysis without administration of IV contrast. Absence of intravenous contrast decreases sensitivity for detection of focal lesions and vascular pathology. Coronal and sagittal reformations were obtained. Routine protocol was performed. IV CONTRAST: None. ORAL CONTRAST: Gastrografin RADIATION DOSE: Total DLP: 767.5 mGy*cm Estimated effective dose: (DLP x 0.015 x size factor) mSv COMPLICATIONS: None FINDINGS: LINES and TUBES: None. LOWER THORAX: Coronary atherosclerosis and aortic valve calcifications. HEPATOBILIARY: No focal hepatic lesions. No biliary ductal dilation. Left portal venous gas is noted. GALLBLADDER: No radio-opaque stones or sludge. No wall thickening. SPLEEN: No splenomegaly. Splenic granulomas are noted. PANCREAS: No focal masses or ductal dilatation. ADRENALS: Bilateral adrenal nodules which measures less than 10 HU, consistent with adrenal adenomas. KIDNEYS/URETERS: Mild nonspecific bilateral perinephric stranding. Bilateral simple renal cysts, measuring 2.7 cm in the left upper pole kidney and 2.8 cm in the right lower pole kidney. No evidence of hydronephrosis or stones. GI TRACT: There is pneumatosis within the distal ileum on series 2, image 62. Mild wall thickening involving the rectum, which is undistended. No evidence of bowel obstruction. There are diverticula within the colon without evidence of diverticulitis. Appendix is normal. PELVIC ORGANS/BLADDER: Unremarkable bladder. Prostate gland is enlarged measuring up to 5.9 cm. LYMPH NODES: No lymphadenopathy. VESSELS: Extensive atherosclerotic calcifications of the abdominal aorta and branch vessels. Severe calcified plaque in the SMA origin. Air within the mesenteric venous system is noted on series 2, image 53. There is also air in the portal venous system on the left, on series 2, image 12. PERITONEUM / RETROPERITONEUM: No free air or fluid. BONES/SOFT TISSUES: No acute bony findings. Bilateral fat containing inguinal hernias. IMPRESSION: Ileal pneumatosis with air in the mesenteric system and left portal vein, suggestive of ischemic or infectious etiology. Note is made of severe calcified plaque in the SMA, incompletely evaluated in the absence of IV contrast, which suggests a potential ischemic etiology. A CTA may be considered for further evaluation. Distal sigmoid colon and rectal wall thickening which may partially be due to underdistention. Given the reported history of rectal bleeding, the findings could reflect proctitis. Above critical findings were discussed with Dr. Elio Carvalho on 10/23/17 at 1408 PM. Signed by: Dr. Ash Meredith MD on 10/23/2017 2: 13 PM ORIGINAL REPORT EXAM: CT Abdomen and Pelvis WITHOUT contrast INDICATION: Abdominal pain COMPARISON: None. TECHNIQUE : Abdomen and pelvis were scanned utilizing a multidetector helical scanner from the lung base to the pubic symphysis without administration of IV contrast. Absence of intravenous contrast decreases sensitivity for detection of focal lesions and vascular pathology. Coronal and sagittal reformations were obtained. Routine protocol was performed. IV CONTRAST: None. ORAL CONTRAST: Water RADIATION DOSE: Total DLP: 156 mGy*cm Estimated effective dose: (DLP x 0.015 x size factor) mSv COMPLICATIONS: None FINDINGS: LINES and TUBES: None. LOWER THORAX: Unremarkable HEPATOBILIARY: No focal hepatic lesions. No biliary ductal dilation. GALLBLADDER: No radio-opaque stones or sludge. No wall thickening. SPLEEN: No splenomegaly. PANCREAS: No evidence of pancreatic ductal dilatation or focal masses although evaluation is limited in the absence of IV contrast. ADRENALS: No adrenal nodules KIDNEYS/URETERS: There is a 6 mm left proximal ureteral stone associated mild left hydronephrosis. There are multiple punctate bilateral renal stones. The largest stones in the left kidney measure 5 mm and 4 mm in the left lower pole. The largest stone on the right measures 3 mm in the upper pole. Bilateral medullary nephrocalcinosis is noted. There is a 1.5 cm simple renal cyst in the right mid pole kidney. GI TRACT: No abnormal distention, wall thickening, or evidence of bowel obstruction. PELVIC ORGANS/BLADDER: Unremarkable. LYMPH NODES: No lymphadenopathy. VESSELS: Scattered atherosclerotic aortic calcifications. PERITONEUM / RETROPERITONEUM: No free air or fluid. BONES: No acute bony findings. IMPRESSION: A 6 mm proximal left ureteral stone with associated mild left hydronephrosis. Numerous other bilateral non-obstructive renal stones measuring up to 5 mm on the left and 3 mm on the right. Medullary nephrocalcinosis, with a differential including hyperparathyroidism, medullary sponge kidney, and hypervitaminosis D among other etiologies. Signed by: Dr. Ash Meredith MD on 10/23/2017 1:02 PM Dictated By: ASH MEREDITH MD 1413 Transcribed By: NADIRA on 10/23/17 1302 COPY TO: ELIO CARVALHO MD CHEST SINGLE (PORTABLE) 2017-10-22 23:31:00 [place] [address] Patient Name: ARNULFO SPAULDING MR #: [id number] : 1935 Age/Sex: 82/M Req #: [id number] Adm Physician: Ordered by: PAL POTTS MD Report #: [id number] Location: ER Room/Bed: ____ Procedure: [id number] DX/CHEST SINGLE (PORTABLE) Exam Date: 10/22/17 Exam Time: 2313 REPORT STATUS: Signed EXAMINATION: CHEST SINGLE (PORTABLE) INDICATION: Weakness COMPARISON: 10/01/2016 CT of the chest FINDINGS: TUBES and LINES: None. LUNGS: Lungs are not well inflated. Calcified granuloma in the right mid lung There is no evidence of pneumonia or pulmonary edema. PLEURA: No pleural effusion or pneumothorax. HEART AND MEDIASTINUM: The cardiomediastinal silhouette is unremarkable. BONES AND SOFT TISSUES: No acute osseous lesion. Soft tissues are unremarkable. UPPER ABDOMEN: No free air under the diaphragm. IMPRESSION: No acute thoracic abnormality. Signed by: Dr. Mehdi Saucedo M.D. on 10/22/2017 11:31 PM Dictated By: MEHDI BERRIOS MD 30 Transcribed By: NADIRA on 10/22/172330 COPY TO: PAL POTTS MD POCT-POTASSIUM 2016-11-26 13:03:00 POC-POTASSIUM (BEAKER) (test xfst=7417) 4.6 meq/L 3.6-5.5 TESTED AT [place] [id number] POCT-GLUCOSE [id number] 08:57:00* Test Item Value Reference Range Comments POC-GLUCOSE METER (BEAKER) (test etna=8676) 203 mg/dL 70-110 TESTED AT [address] [address] G I BLEED [facility] [address] [place] [address] Patient Name: ARNULFO SPAULDING MR #: [id number] : 1935 Age/Sex: 81/M Req #: [id number] Adm Physician: ELIO CARVALHO MD Ordered by: LENIN CARVALHO MD Report #: [id number] Location: ICU Room/Bed: ICU [facility] Procedure: [id number] NM/G I BLEED Exam Date: Exam Time: REPORT STATUS: Signed Tagged-RBC GI Bleed Study Clinical information: Tagged-RBC GI Bleed Study Clinical information: 81- year-old M with anemia and dark stools. Discussion: The patient's own red blood cells were labeled with 22.5 mCi of technetium-99m pertechnetate using the in vitro method (UltraTag). Dynamic images of the abdomen were obtained through 60 minutes. Distribution of tracer activity appears physiologic throughout the abdomen. No abnormal accumulation of tracer is seen within the gastrointestinal lumen. Impression: No scan evidence of active gastrointestinal bleeding at this time. Signed by: Dr. Jaqueline Hinkle M.D. on 10/16/2016 7:28 PM Dictated By: JAQUELINE HINKLE MD 27 Transcribed By: NADIRA on 10/16/161927 COPY TO: LENIN CARVALHO MD CT CHEST W [place] [address] Patient Name: ARNULFO SPAULDING MR #: [id number] : 1935 Age/Sex: 81/M Req #: [id number] Adm Physician: Ordered by: ELIO CARVALHO MD Report #: [id number] Location: CT Room/Bed: Procedure: [id number] CT/CT CHEST W Exam Date: 10/01/16 Exam Time: 0825 REPORT STATUS: Signed PROCEDURE: CT scan of the chest WITH intravenous contrast, using standard protocol. TECHNIQUE: The chest was scanned utilizing a multidetector helical scanner from the lung apex through the level of the adrenal glands after the IV administration of 100 cc of Isovue 370. Coronal and sagittal multiplanar reformations were obtained. COMPARISON: [facility], CT, CT CHEST W, 05/10/2015, 12:27. INDICATIONS: MALIGNANT NEOPLASM OF LUNG, CARCINOMA OF BLADDER FINDINGS: Lines/tubes: None. Lungs and Airways: Postoperative changes of right upper lobectomy. Stable mild bilateral upper lobe centrilobular emphysematous changes. * Previously described 2 mm nodule in the right upper lobe has linear configuration and likely represents focal subpleural scarring (series 4, image 23). * Previously described 2 mm nodule in the left upper lobe is not clearly seen on the current exam. * Stable focal 6-7 mm groundglass opacity in the left upper lobe (series 4, image 43). * Stable 4 mm solid nodule in the lateral anterior left lower lobe (series 4, image 69). Stable subpleural triangular opacity in the posteromedial aspect of the superior segment of the left lower lobe (series 4, image 47 and sagittal image 109), which may represent scarring. Stable calcified granuloma in the right lower lobe ( series 4, image 55). Stable linear opacities in the right lower lung, likely representing scarring. No consolidation. No new pulmonary nodules. Airways are clear, without endobronchial lesions. Pleura: No effusion, or pneumothorax. Heart and mediastinum: Stable prominence of the left thyroid lobe, which may reflect an underlying nodule. . Stable punctate calcific density in posterior superior aspect of the right thyroid lobe ( series 5, image 6). Heart size is normal. Hypertrophy of the left ventricle. No pericardial effusion. Aorta is non-aneurysmal. Atherosclerotic calcification of aortic valves, coronary arteries and thoracic aorta. Main pulmonary artery is normal in caliber, measuring 2.7 cm. Lymph nodes: No mediastinal, hilar, or axillary adenopathy. Stable calcified subcarinal lymph node Abdomen: Please see CT abdomen and pelvis performed same date for further detail. Bones: No acute bony abnormalities. Degenerative disc changes in the thoracic spine. No lytic lesions. Stable deformity and bony bridging of the right fifth and sixth ribs, likely representing postoperative changes. IMPRESSION: 1. status post right upper lobectomy, without new suspicious nodules, masses or adenopathy. 2. Stable 4 mm nonspecific nodule in the lateral anterior, left lower lobe. Other previously described nodules in the right and left upper lobe likely represent focal subpleural scarring or are not seen in the current exam. 3. Stable focal 6-7 mm groundglass opacity in the left upper lobe, which may reflect focal fibrosis or atypical adenomatous hyperplasia. 4. Stable subpleural scarring in the posteromedial superior segment of the left lower lobe. 5. Stable sequela of prior granulomatous disease. Eddie Moreno M.D. Dictated by: Eddie Moreno M.D. on 10/01/2016 at 12:05 Electronically approved by: Eddie Moreno M.D. on 2016 at 12:05 Dictated By: EDDIE MORENO MD 1205 Transcribed By: HOLLI on 1205 COPY TO: ELIO CARVALHO MD CT ABDOMEN/PELVIS W [place] [address] Patient Name: ARNULFO SPAULDING MR #: [id number] : 1934 Age/Sex: 81/M Req #: [id number] Adm Physician: Ordered by: ELIO CARVALHO MD Report #: [id number] Location: CT Room/Bed: Procedure: [id number] CT/CT ABDOMEN/PELVIS W Exam Date : 10/01/16 Exam Time: 08 REPORT STATUS: Signed PROCEDURE: CT ABDOMEN AND PELVIS WITH CONTRAST TECHNIQUE: The abdomen and pelvis were scanned utilizing a multidetector helical scanner from the diaphragm to the lesser trochanter after the IV administration of 100 cc of Isovue 370 and the oral administration of water. Coronal and sagittal multiplanar reformations were obtained. COMPARISON: CT abdomen and pelvis 05/10/2015. INDICATIONS: MALIGNANT NEOPLASM OF LUNG , CARCINOMA OF BLADDER FINDINGS: LOWER THORAX: Normal. HEPATOBILIARY: No focal hepatic lesions. No biliary ductal dilatation. SPLEEN : No splenomegaly. Stable calcifications of the spleen. PANCREAS: No focal masses or ductal dilatation. ADRENALS: Stable fat containing left adrenal nodule. No right adrenal nodule. KIDNEYS/URETERS: No hydronephrosis, stones , or solid mass lesions. Bilateral renal simple cysts. Minimal bilateral perinephric soft tissue inflammatory changes. PELVIC ORGANS/BLADDER: Unremarkable. PERITONEUM / RETROPERITONEUM: No free air or fluid. LYMPH NODES: No lymphadenopathy. VESSELS: Aortoiliac and great vessel atherosclerotic calcifications. GI TRACT: No distention or wall thickening. Normal appendix. Scattered diverticuli are present in the descending and sigmoid colon, without adjacent soft tissue inflammatory changes. Moderate amount of retained feces limits intraluminal evaluation of the colon. BONES AND SOFT TISSUES: Unremarkable. IMPRESSION: No acute abnormality the abdomen and pelvis. Diverticulosis without evidence of diverticulitis. Dictated by: Mara Carcamo M.D. on 10/01/2016 at 13:33 Electronically approved by: Mara Carcamo M.D. on 10/01/2016 at 13:33 Dictated By: MARA CARCAMO MD 1333 Transcribed By: HOLLI on 10/01/16 1333 COPY TO: ELIO CARVALHO MD
--- OUTSIDE RECORDS SUMMARY | 2017-11-12 07:54 | XMS REPORT | Clinical Summary ---
Author Author ANTHONY [facility] Address Unknown Phone Unavailable Care Team Providers Care Travel Counselor Name Role Phone PCP Unavailable Allergies No Known Allergies Current Medications Prescription Sig. Disp. Refills Start End Date Status Date glyBURIDE-metFORMIN Take 1 tablet by mouth Active (GLUCOVANCE) 5-500 mg per daily with breakfast. tablet pregabalin (LYRICA) 75 MG Take 200 mg by mouth 2 Active capsule (two) times daily . pregabalin (LYRICA) 150 Take 150 mg by mouth 2 Active MG capsule (two) times daily. multivitamin capsule Take 1 capsule by mouth Active daily. pantoprazole (PROTONIX) Take 40 mg by mouth Active 40 MG tablet daily. sucralfate (CARAFATE) 1 Take 1 g by mouth 4 Active gram tablet (four) times daily. rosuvastatin (CRESTOR) 10 Take 10 mg by mouth Active MG tablet daily. olmesartan-hydrochlorothi Take 1 tablet by mouth Active azide (BENICAR HCT) 40-25 daily. mg per tablet FERROUS FUMARATE (IRON Take by mouth daily . Active ORAL) Active Problems Not on file Encounters Date Type Specialty Care Team Description 11/26/2016 Hospital Gastroenterology Herbert Bautista Encounter 11/26/2016 Procedure Pass Gastroenterology 11/26/2016 Surgery Gastroenterology Herbert Bautista Magdy ENTEROSCOPY, TRANSENDOSCOP IC BALLOON DILATATION 11/25/2016 Hospital Pre-Admission Testing Encounter 11/25/2016 Anesthesia Gastroenterology Jaiden Parsons Event MD Juan Jose after 10/22/2016 Social History Tobacco Use Types Packs/Day Years Used Date Former Smoker 3 37 Quit: 1991 Smokeless Tobacco: Never Used Comments: currently Hookah smoker everyday. Counseling to be given on day of procedure. Alcohol Use Drinks/Week oz/Week Comments Yes RARELY Sex Assigned at Date Recorded Not on file Last Filed Vital Signs Vital Sign Reading Time Taken Blood Pressure 140/63 11/26/2016 11:55 AM CDT Pulse 76 11/26/2016 11:55 AM CDT Temperature 36.3 C (97.3 F) 11/26/2016 11:24 AM CDT Respiratory Rate 15 11/26/2016 11:55 AM CDT Oxygen Saturation 96% 11/26/2016 11:55 AM CDT Inhaled Oxygen - - Concentration Weight 98.2 kg (216 lb 9.6 oz) 11/26/2016 8:05 AM CDT Height 172.7 cm (5' 8") 11/26/2016 8:05 AM CDT Body Mass Index 32.93 11/26/2016 8:05 AM CDT Plan of Treatment Not on file Procedures Procedure Name Priority Date/Time Associated Diagnosis Comments ENTEROSCOPY,TRANSENDOSCOP 11/26/2016 Iron deficiency anemia, IC BALLOON DILATATION 9:00 AM CDT unspecified iron deficiency anemia type after 10/22/2016 Results * REPORT OF PROCEDURE - ENDOSCOPY URL (11/26/2016 11:56 AM) * POC-Potassium (11/26/2016 8:42 AM) Component Value Ref Range POC-Potassium 4.6Comment: TESTED AT [address] 3.6 - 5.5 meq/L [id number] Specimen Performing Laboratory Blood [address] [address] * POC-Glucose meter (11/26/2016 8:38 AM) Component Value Ref Range POC-Glucose Meter 203 (H)Comment: TESTED AT [address] 70 - 110 mg /dL [facility] [id number] Specimen Performing Laboratory Blood [address] [address] after 10/22/2016
--- NOTE | 2017-12-24 03:17 | Discharge Summary ---
CHIEF COMPLAINT: Rectal bleeding. FINAL DIAGNOSES 1. Ischemic bowel. 2. Diabetes, type 2. 3. Hypertension. PROCEDURES 1. Exploratory laparotomy. 2. Ileocolectomy. DISPOSITION: [facility] rehab facility. An 82-year-old male with known history diabetes type 2, hypertension, hyperlipidemia, peripheral vascular disease along with peripheral neuropathy, brought to the ER with a 1-day history of increased lethargy, weakness, anorexia. No fever or chills. No chest pains or shortness of breath. No nausea, vomiting. Has had black stools as well as having occasional small amount of blood mixed with mucus. Reviewed in the emergency room. Noted to have a grade 3/6 systolic murmur, aortic focus, radiating to the back. Further studies were conducted. The patient was admitted for evaluation regarding generalized weakness, GI bleed, heart murmur, arteriovenous malformation GI, diabetes type 2, chronic kidney disease stage 3. Will be admitting. Will begin IV hydration. Obtain blood and urine cultures. Requested a cardiac follow, GI follow. Following his admission regarding issues of aortic stenosis, cardiac was requested through Dr. Wang and following his evaluation, his impression was gastrointestinal issues, aortic stenosis, hypertension, diabetes mellitus with complications chronic kidney disease stage 4. Recommend stopping the diuretics. Agree with IV fluid. With issues of chronic kidney disease, Dr. Allred, was following from a nephrology and his findings reveal acute kidney injury on chronic kidney disease stage 3, suspect secondary to volume depletion or urinary retention. Has history of bladder cancer. The diabetes was being managed with Dr. Gandhi and his impression was diabetes mellitus type 2 uncontrolled with complications hypertension, kidney stones, rectal bleeding. Recommending holding the Victoza for now. Underwent pulmonary follow with Dr. Post being the patient was still intubated following his surgical procedure and his impression was acute respiratory failure multifactorial, ischemic bowel on admission. Postoperative state, status post partial small and large bowel resections, vhact-jn-rkskprk kidney disease, history of lung resective surgery 2013. CVA with reasonable recovery. Recommending to continue profuse kidneys. Maintain intubated state. Continue conscious sedation while vented. Avoid renal toxic agents. Patient did have a rapid event. Mental status issues. The patient was reviewed by Dr. Richardson. Findings are encephalopathy, could be due to multiple sedating drugs. Symptoms could be result of hypertensive emergency. Also possibility of metabolic encephalopathy and following stroke is consideration given the patient's limited mobility of his left arm, but the CT scan was stable, making this possible CVA diagnosis less likely. Patient was admitted to the med surg floor, was started n.p.o. status, was complaining of midabdominal pain, was passing bloody stools. Was on IV fluids. Was receiving potassium replenishments. Daily medications were continuing as well along with his diabetic profiles. His laboratory studies were showing stable electrolytes. Kidney functions, BUN 60, creatinine 2.28, glucose 268. CBC stable. CT of the abdomen and pelvis was being requested and with these findings Dr. Calle was called in for a general surgery review and his impression was ischemic bowel, sepsis, shock. Recommending exploratory laparotomy. Procedure was conducted by Dr. Calle on 10/23. Went to ICU vented post procedure. Was receiving routine ICU protocols post procedure. The patient was now on Flagyl, as well as Zosyn continuing on conscious sedation. His CBC was stable. His kidney function was showing a BUN 57, creatinine 2.34. Followup BUN was higher at 66, creatinine 2.78. Hemoglobin had fallen to 8.9. Patient was continuing in ICU on vent. With the propofol drip and he was started on TPN nutrition on 10/26. On 10/27, the BUN was 37. White cell count had fallen to 2600 and on 10/27, patient was started on pulmonary weaning. The TPN was continuing. Noted the sodium was down at 151. Sugar was at 254. BUN 45, this was 10/28. He began weaning off the sedation, was able to be extubated. Managed by Dr. Post. Blood sugar on 10/29 was 319 with continued diabetic management with Dr. Gandhi. ICU management was continuing. The patient was noted that he was improving clinically day after day. TPN was being maintained. Surgical site was being addressed routinely. He was now being given recreational clear liquid diet with the TPN. His potassium was dropping and trended down to 3.3 noted on 11/01 and was started on potassium replenishment. His blood sugars now at 213. On 11/02, orders were being written to wean off the TPN. Was being started on a GI soft diet. Now weaned on down to the med surg floor as his stay continued. Blood sugar now at 181. Tolerated a GI soft diet well. Was going to be requiring rehab once discharged and case management was assisting the process of transferring the patient to a rehab location along with assistance of Dr. Palmer and the patient was being accepted to [facility] rehab with Dr. Palmer and was able to be transferred there in a stable condition on 11/05/2017. His final BUN is 30. Final glucose 164. Final white count 6200. EKG just showing sinus tachycardia, anterior infarct, age undetermined. Echocardiogram, ejection fraction approximately 60%. No evidence of pericardial effusion. Surgical procedure was exploratory laparotomy with a right hemicolectomy and small bowel resection. As he was transferred to [facility] rehab facility, his MAR sheet will follow with him. I will monitor his progress from a medical standpoint as he involves himself in his rehab recovery through Dr. Palmer. Dictated By: MICHAELA Corea Job#: [id number] CQ
--- NOTE | 2017-12-28 23:29 | Consultation ---
DATE OF CONSULTATION: October 23, 2017 SURGICAL CONSULTATION ADMITTING PHYSICIAN: Dr. Jorge Carvalho REASON FOR CONSULTATION: Abdominal pain. HPI: An 82-year-old male. He is well known to me from previous admissions. He came into the hospital at this time after presenting to the emergency room with a 2-day history of abdominal pain and rectal bleeding that had become progressively worse. The pain had become worse and he was thus brought to the hospital for emergency admission and we were asked to see the patient in consultation. PAST MEDICAL HISTORY: Remarkable for lung cancer, status post thoracotomy and partial lobectomy. He also has history of some coronary artery disease and peripheral vascular disease. MEDICATIONS: Please refer to MAR. REVIEW OF SYSTEMS: Otherwise unremarkable. PHYSICAL EXAMINATION GENERAL: At time that we saw the patient revealed a patient that was somewhat obtunded, not able to coherently answer questions. She was pale looking, tachycardic, and tachypneic. HEAD, EYES, EARS, NOSE, THROAT: No acute inflammation. NECK: No nodes, masses or bruits. LUNGS: Clear to auscultation. HEART: Tachycardic with regular rhythm. ABDOMEN: Tender, worse in the lower abdomen, but was soft. There were no palpable masses present. EXTREMITIES: Good pulses bilaterally. ASSESSMENT 1. Probable ischemic bowel with surgical abdomen, rule out vascular occlusion of the intra-abdominal blood flow of the old bowel. 2. Sepsis and shock. PLAN 1. Hydration. 2. Antibiotics. 3. STAT CT scan of the abdomen. 4. Probable emergency laparotomy. Thank you very much for asking me to see this patient. Job#: [id number] CQ
--- NOTE | 2018-01-26 18:57 | Operative Report ---
DATE OF PROCEDURE: October 23, 2017 PREOPERATIVE DIAGNOSIS: Ischemic bowel with septic shock. POSTOPERATIVE DIAGNOSIS: Ischemic bowel with septic shock. OPERATION PERFORMED: 1. Exploratory laparotomy. 2. Right hemicolectomy. 3. Small bowel resection. ANESTHESIA: General endotracheal. COMPLICATIONS: None. ESTIMATED BLOOD LOSS: 150 mL. DESCRIPTION OF PROCEDURE: With the patient lying in bed in the supine position under good general endotracheal anesthesia, the abdomen was prepped with Betadine solution and draped in the usual manner. A lower midline incision was made. Was carried down through the subcutaneous tissue and through the midline fascia. The peritoneum was opened and the abdomen was entered. Upon entering the abdominal cavity, immediately some bloody fluid was encountered which was foul-smelling consistent with ischemic bowel as suspected preoperatively. Examination at this point revealed that the distal small bowel was compromised, the proximal small bowel appeared to be in reasonable shape and similarly the ascending colon appeared to be ischemic as well. The rest of the abdominal exploration was otherwise within normal limits. We decided to go ahead and proceed with the small bowel resection first. The small bowel was then divided above the proximal ileum with a JOSSY stapler and then using the In-Seal device the mesentery of the bowel was slowly and carefully divided all the way up distally. At this point, we again reexamined the ascending colon and we decided that the right colon had to be resected as well as it also appeared to be involved with ischemic changes and we could not take the chance of leaving behind any bowel that was not viable. The right colon was then mobilized off of the lateral gutter and the hepatic colic ligament was taken down with the In-Seal device and the colon was then divided with the JOSSY stapler at the level of the distal transverse colon at the point where the colon was clearly viable. The mesentery of the right colon was then divided with the In-Seal device and the specimen was sent for pathological examination. The abdomen was then copiously irrigated with dilute saline solution and the bowel was then again inspected and run in its entirety. We waited a while to make sure that the patient was hemodynamically stable and his blood pressure seemed to remain stable at this point, and we decided since there was no further bowel that seemed to be ischemic that we would go ahead and do an anastomosis. The proximal ileum was then brought up to the distal transverse colon and anastomosed with another application of JOSSY 75 stapler. The remaining opening was closed with a TA-60 stapler. The anastomosis was then reinforced with interrupted sutures of 3-0 silk. The mesenteric rent was closed with a running suture of 2-0 Vicryl and the abdomen was again copiously irrigated and perfect hemostasis was ascertained. Then the abdomen was then closed in layers. Peritoneum was closed with a running suture number 1 Vicryl. The midline fascia was closed with a running suture of #1 PDS and the skin was closed with clips. A dressing was applied. The sponge, lap and needle count was correct. Patient tolerated the procedure well and returned to the recovery room in stable condition. Job#: [id number] [facility]
== END 2017-11-05 18:33 | DRG 853 ==
LOC: ER 21:32 → MED/SURG2 10-23 00:42 → ICU 10-23 16:45 → OBSVTOIN 10-23 22:22 → MED/SURG2 11-02 13:55
PROC: 0BH17EZ Insertion of Endotracheal Airway into Trachea, Via Natural or Artificial Opening (ICD-10-PCS; 2017-10-23)
PROC: 0DTN0ZZ Resection of Sigmoid Colon, Open Approach (ICD-10-PCS; 2017-10-23)
PROC: 0WUF07Z Supplement Abdominal Wall with Autologous Tissue Substitute, Open Approach (ICD-10-PCS; 2017-10-23)
PROC: 0DTF0ZZ Resection of Right Large Intestine, Open Approach (ICD-10-PCS; 2017-10-23)
PROC: 5A1955Z Respiratory Ventilation, Greater than 96 Consecutive Hours (ICD-10-PCS; principal; 2017-10-23 17:21)
DX: A41.9 Sepsis, unspecified organism (principal); N17.0 Acute kidney failure with tubular necrosis; J96.00 Acute respiratory failure, unspecified whether with hypoxia or hypercapnia; G92 Toxic encephalopathy; T81.19XA Other postprocedural shock, initial encounter; K55.9 Vascular disorder of intestine, unspecified; D62 Acute posthemorrhagic anemia; D61.818 Other pancytopenia; I97.191 Other postprocedural cardiac functional disturbances following other surgery; E44.0 Moderate protein-calorie malnutrition; N18.4 Chronic kidney disease, stage 4 (severe); E87.1 Hypo-osmolality and hyponatremia; Z85.51 Personal history of malignant neoplasm of bladder; Z85.118 Personal history of other malignant neoplasm of bronchus and lung; E11.40 Type 2 diabetes mellitus with diabetic neuropathy, unspecified; Z79.4 Long term (current) use of insulin; E11.22 Type 2 diabetes mellitus with diabetic chronic kidney disease; I12.9 Hypertensive chronic kidney disease with stage 1 through stage 4 chronic kidney disease, or unspecified chronic kidney disease; E11.65 Type 2 diabetes mellitus with hyperglycemia; I35.0 Nonrheumatic aortic (valve) stenosis; E87.6 Hypokalemia; D63.8 Anemia in other chronic diseases classified elsewhere; I48.91 Unspecified atrial fibrillation; E66.9 Obesity, unspecified; Z68.33 Body mass index [BMI] 33.0-33.9, adult; F03.90 Unspecified dementia, unspecified severity, without behavioral disturbance, psychotic disturbance, mood disturbance, and anxiety; I69.311 Memory deficit following cerebral infarction; I69.398 Other sequelae of cerebral infarction; N20.0 Calculus of kidney
CPT/HCPCS: 36415; 36600; 70450; 70551; 71045; 74174; 74176; 76770; 76857; 80048; 80053; 80061; 80076; 81001; 82140; 82150; 82270; 82330; 82550; 82553; 82570; 82607; 82728; 82805; 82948; 83036; 83540; 83605; 83690; 83735; 84100; 84134; 84156; 84425; 84436; 84439; 84443; 84466; 84478; 84479; 84484; 84630; 85014; 85018; 85025; 85379; 85610; 85730; 86592; 86850; 86870; 86880; 86900; 86905; 87040; 87086; 88307; 93005; 93306; 94002; 94003; 96361; 96365; 96366; 96372; 97139; 99001; 99284; J0360; J1170; J1650; J2001; J2250; J2270; J2310; J2370; J2543; J7030; J7050; J7060; J7070; Q9967

== ENCOUNTER 2018-01-02 10:49 | Observation (INO) | payer MEDICARE, BC ==
[~2018-01-02] VITALS: Ht 172.7 cm; Wt 90.3 kg
[~2018-01-02 10:49] MED LIST changes: +BETAMETHASONE D15 GM; +FUROSEMIDE40 MG PO; +GABAPENTIN600 MG PO; +POTASSIUM CHLO10 ME1 PO; +TRESIBA; +VICTOZA 2-0.6 MG/0.1
--- OUTSIDE RECORDS SUMMARY | 2018-01-02 10:54 | XMS REPORT | Clinical Summary ---
Author Author ANTHONY [facility] Address Unknown Phone Unavailable Care Team Providers Care Community Resource Consultant Name Role Phone Sharpless PCP Allergies No Known Allergies Medications End Date Status Medication Sig Dispensed Refills Start Date Active glyBURIDE-metFORMIN Take 1 tablet 0 (GLUCOVANCE) 5-500 mg per by mouth tablet daily with breakfast. Active pregabalin (LYRICA) 75 MG Take 200 mg 0 capsule by mouth 2 (two) times daily . Active pregabalin (LYRICA) 150 Take 150 mg 0 MG capsule by mouth 2 (two) times daily. Active multivitamin capsule Take 1 0 capsule by mouth daily. Active pantoprazole (PROTONIX) Take 40 mg by 0 40 MG tablet mouth daily. Active sucralfate (CARAFATE) 1 Take 1 g by 0 gram tablet mouth 4 (four) times daily. Active rosuvastatin (CRESTOR) 10 Take 10 mg by 0 MG tablet mouth daily. Active olmesartan-hydrochlorothi Take 1 tablet 0 azide (BENICAR HCT) 40-25 by mouth mg per tablet daily. Active FERROUS FUMARATE (IRON Take by mouth 0 ORAL) daily . Active Problems Not on file Social History Date Tobacco Use Types Packs/Day Years Used Quit: 1991 Former Smoker 3 37 Smokeless Tobacco: Never Used Comments: currently Hookah smoker everyday. Counseling to be given on day of procedure. Alcohol Use Drinks/Week oz/Week Comments Yes RARELY Sex Assigned at Date Recorded Not on file Industry Job Start Date Occupation Not on file Not on file Not on file Travel End Travel History Travel Start No recent travel history available. Last Filed Vital Signs Not on file Plan of Treatment Not on file Results Not on fileafter 01/01/2017 Insurance Payer Benefit Subscriber ID Type Phone Address Plan / Group MEDICARE MEDICARE A xxxxxxxxxx Medicare B [employer] BCBS xxxxxxxxxxxx O [phone] [address] [place] [address] [place]
[2018-01-02] MEDS: SODIUM CHLORIDE 0.9% 1000ML 1,000 ML IV SCH ×2 (11:55→17:30)
[2018-01-02] MEDS ORDERED: SODIUM CHLORIDE 0.9% 1000ML 1,000 ML IV SCH (12:02)
[2018-01-02] MEDS ORDERED: SODIUM CHLORIDE FLUSH 10 ML SYR INJ PRN (12:15)
--- OUTSIDE RECORDS SUMMARY | 2018-01-02 12:16 | XMS REPORT | Clinical Summary ---
Author Author ANTHONY [facility] Address Unknown Phone Unavailable Care Team Providers Care Financial Underwriter Name Role Phone Sharpless PCP Allergies No [...] B [employer] BCBS xxxxxxxxxxxx O [phone] [address] [place] [address] [place]
[2018-01-02 12:35] VITALS: BP 155/63
[2018-01-02] MEDS ORDERED: IRON DEXTRAN INJ 50 MG in SODIUM CHLORIDE 0.9% 100 ML 100 ML IV ONE (15:00)
[2018-01-02 15:01] VITALS: BP 155/63
[2018-01-02] MEDS ORDERED: DEXTROSE 50% SYRINGE 50 ML IV PRN (15:45)
[2018-01-02 16:00] VITALS: BP 119/60
[2018-01-02] MEDS: INSULIN LISPRO 100 UNIT/1 ML 3ML VIAL SQ SCH ×2 (18:00→21:21)
[2018-01-02 20:00] VITALS: BP 148/65
[2018-01-02] MEDS ORDERED: SIMVASTATIN 20 MG TAB PO SCH (21:00)
[2018-01-02] MEDS ORDERED: TEMAZEPAM 15 MG CAP PO PRN (22:00)
[2018-01-02 22:29] VITALS: BP 148/65
[2018-01-03] VITALS: BP 98/49
[2018-01-03] MEDS: SODIUM CHLORIDE 0.9% 1000ML 1,000 ML IV SCH ×3 (02:18→16:06)
[2018-01-03 04:00] VITALS: BP 113/53
[2018-01-03 05:45] LABS: EOSINOPHILS # (AUTO) 0.1 (0.0-0.4); EOSINOPHILS % 2.3 % (0.0-6.0); LYMPHOCYTES % 44.8 % (18.0-39.1); MEAN CORPUSCULAR HEMOGLOBIN 28.9 pg (28-32); MEAN CORPUSCULAR HGB CONC 31.4 g/dL (31-35); MEAN CORPUSCULAR VOLUME 92.1 fL (81-99); MONOCYTES # (AUTO) 0.4 (0.2-0.8); MONOCYTES % 9.2 % (4.4-11.3); NEUTROPHILS # (AUTO) 1.9 (2.1-6.9); NEUTROPHILS % 43.2 % (38.7-80.0); PLATELET COUNT 161 x10e3/uL (140-360); RED BLOOD COUNT 2.39 x10e6/uL (4.3-5.7); RED CELL DISTRIBUTION WIDTH 14.8 % (11.7-14.4)
[2018-01-03 05:52] LABS: HEMOGLOBIN 6.9 g/dL (14.0-18.0)
[2018-01-03 06:01] LABS: ANION GAP 11.4 mmol/L (8-16); CALCIUM 7.5 mg/dL (8.4-10.2); CREATININE, SERUM 1.33 mg/dL (0.72-1.25); POTASSIUM 3.4 mmol/L (3.5-5.1)
[2018-01-03 06:44] LABS: FREE THYROXINE INDEX 1.3849 (1.4-3.8); THYROID STIMULATING HORMONE 1.639 uIU/mL (0.350-4.940)
[2018-01-03] MEDS ORDERED: FUROSEMIDE 40 MG TAB PO SCH (07:30)
[2018-01-03] MEDS ORDERED: FUROSEMIDE INJ 10 MG/ML 2 ML VIAL IV ONE ×2 (07:45→13:30)
[2018-01-03] MEDS: INSULIN LISPRO 100 UNIT/1 ML 3ML VIAL SQ SCH ×3 (08:00→16:50)
[2018-01-03 08:38] VITALS: BP 120/58
[2018-01-03 09:00] VITALS: BP 120/58
[2018-01-03] MEDS ORDERED: OLMESARTAN 20 MG TAB PO SCH (09:00)
[2018-01-03] MEDS ORDERED: HYDROCHLOROTHIAZIDE 25 MG TAB PO SCH (09:00)
[2018-01-03] MEDS ORDERED: PREGABALIN 75 MG CAP PO SCH (09:00)
[2018-01-03] MEDS ORDERED: POTASSIUM CHLORIDE 10MEQ EA PO SCH (09:00)
[2018-01-03] MEDS ORDERED: SODIUM CHLORIDE 0.9% 250ML 250 ML ONE (09:48)
[2018-01-03] MEDS ORDERED: CYANOCOBALAMIN INJ 1,000 MCG/ML VIAL IM ONE (10:30)
[2018-01-03] MEDS ORDERED: CHOLESTYRAMINE 4 GM PACKET PO SCH (11:00)
[2018-01-03 13:41] VITALS: BP 117/56
[2018-01-03 16:30] VITALS: BP 134/61
[2018-01-03 17:15] LABS: HEMATOCRIT 31.2 % (38.2-49.6)
== END 2018-01-03 17:00 | disposition home or self-care (01) ==
LOC: ER 10:49 → INTOOBSV 12:14 → ERHOLD 12:14 → MED/SURG 12:50
DX: D50.0 Iron deficiency anemia secondary to blood loss (chronic) (principal); E86.0 Dehydration; I12.9 Hypertensive chronic kidney disease with stage 1 through stage 4 chronic kidney disease, or unspecified chronic kidney disease; N17.9 Acute kidney failure, unspecified; E78.5 Hyperlipidemia, unspecified; E11.22 Type 2 diabetes mellitus with diabetic chronic kidney disease; N18.3 Chronic kidney disease, stage 3 (moderate); Z91.81 History of falling
CPT/HCPCS: 36415 ×2; 36430; 80048; 80053; 81003; 82270; 82553; 82607; 82948 ×2; 84436; 84443; 84479; 84484; 85014; 85018; 85025 ×2; 86850; 86900; 86920; 86922; 87493; 93005; 96372; 99284; G0378 ×2; J1750; J1940; J3420; J7030 ×2; J7050; P9016

== ENCOUNTER 2018-02-02 09:50 | Emergency (ER) | payer MEDICARE, BC ==
[~2018-02-02] VITALS: Ht 172.7 cm; Wt 90.3 kg
--- OUTSIDE RECORDS SUMMARY | 2018-02-02 09:54 | XMS REPORT | Clinical Summary ---
Author Author ANTHONY [facility] Address Unknown Phone Unavailable Care Team Providers Care Lending Consultant Name Role Phone Sharpless PCP Allergies [...] Not on file Results Not on fileafter 02/01/2017 Insurance Payer Benefit Subscriber ID Type Phone Address Plan / Group MEDICARE MEDICARE A xxxxxxxxxx Medicare B [employer] BCBS xxxxxxxxxxxx O [phone] [address] [place] [address] [place]
--- OUTSIDE RECORDS SUMMARY | 2018-02-02 09:55 | XMS REPORT | Clinical Summary ---
Author Author ANTHONY [facility] Address Unknown Phone Unavailable Care Team Providers Care Gate Services Supervisor Name Role Phone Sharpless PCP Allergies No [...] B [employer] BCBS xxxxxxxxxxxx O [phone] [address] [place] [address] [place]
--- NOTE | 2018-02-02 10:04 | NUR ---
DR. EL AT BEDSIDE EVALUATING PATIENT. HE HAS SPOKEN TO Niall BARRAGAN
[2018-02-02] MEDS ORDERED: ONDANSETRON HCL INJ 2 MG/ML VIAL IV STA (10:09)
[2018-02-02] MEDS ORDERED: PANTOPRAZOLE 40 MG 10ML VIAL IV STA (10:09)
[2018-02-02] MEDS ORDERED: SODIUM CHLORIDE 0.9% 500ML 500 ML IV ONE (10:15)
--- NOTE | 2018-02-02 10:47 | NUR ---
XRAY AT BEDSIDE FOR CXR.
[2018-02-02 10:52] LABS: BASOPHILS % 0.1 % (0.0-1.0); EOSINOPHILS # (AUTO) 0.1 (0.0-0.4); EOSINOPHILS % 0.8 % (0.0-6.0); HEMATOCRIT 32.2 % (38.2-49.6); HEMOGLOBIN 10.4 g/dL (14.0-18.0); LYMPHOCYTES # (AUTO) 2.3 (1.0-3.2); MEAN CORPUSCULAR HEMOGLOBIN 29.3 pg (28-32); MEAN CORPUSCULAR HGB CONC 32.3 g/dL (31-35); MEAN CORPUSCULAR VOLUME 90.7 fL (81-99); MONOCYTES # (AUTO) 0.7 (0.2-0.8); MONOCYTES % 8.5 % (4.4-11.3); NEUTROPHILS # (AUTO) 5.4 (2.1-6.9); NEUTROPHILS % 63.2 % (38.7-80.0); PLATELET COUNT 187 x10e3/uL (140-360); RED BLOOD COUNT 3.55 x10e6/uL (4.3-5.7); RED CELL DISTRIBUTION WIDTH 15.3 % (11.7-14.4)
[2018-02-02 11:00] LABS: INR 1.16; PROTHROMBIN TIME 15.8 seconds (11.9-14.5)
[2018-02-02 11:01] LABS: PARTIAL THROMBOPLASTIN TIME 41.2 seconds (23.8-35.5)
[2018-02-02 11:11] LABS: ALBUMIN 3.3 g/dL (3.5-5.0); ALBUMIN/GLOBULIN RATIO 0.8 (0.8-2.0); ANION GAP 15.8 mmol/L (8-16); CALCIUM 9.3 mg/dL (8.4-10.2); CREATININE, SERUM 1.97 mg/dL (0.72-1.25); POTASSIUM 3.8 mmol/L (3.5-5.1)
[2018-02-02 11:13] LABS: MAGNESIUM 1.1 MG/DL (1.3-2.1)
--- NOTE | 2018-02-02 11:14 | NUR ---
MAGNESIUM 1.1 PER LAB, DR. EL [place]
[2018-02-02 11:18] LABS: CREATINE KINASE MB 1.3 ng/mL (0-5.0)
[2018-02-02 11:20] LABS: B-TYPE NATRIURETIC PEPTIDE2 < 10.0 pg/mL (0-100)
--- NOTE | 2018-02-02 11:20 | Diagnostic Imaging Report ---
EXAMINATION: CHEST SINGLE (PORTABLE) INDICATION: ^ABD PAIN, NEAR-SYNCOPE COMPARISON: 10/29/2017 FINDINGS: AP view TUBES and LINES: None. LUNGS: Limited by body habitus. Right lower lung field nodular densities again seen. Mild bibasilar subsegmental atelectasis. PLEURA: No pneumothorax. Obscuration of the right costophrenic angle. HEART AND MEDIASTINUM: The cardiac silhouette is enlarged. Prominent bilateral hilar regions. BONES AND SOFT TISSUES: No acute osseous lesion. Soft tissues are unremarkable. UPPER ABDOMEN: No free air under the diaphragm. IMPRESSION: No significant interval change from prior exam. Mild bibasilar subsegmental atelectasis. Obscuration of the right costophrenic angle, could be due to atelectasis/scarring or trace effusion. Unchanged right lower lung field nodular density, probably a calcified granuloma. Prominent hilar regions, which could be due to adenopathy. Signed by: Dr. Ken Flores MD on 02/02/2018 11:17 AM
--- NOTE | 2018-02-02 11:35 | NUR ---
orders rec'd from dr. mayuri romero for mag level of 1.1--see cpoe
--- NOTE | 2018-02-02 11:53 | NUR ---
DR. Niall BARRAGAN IN WITH PT AT THIS TIME.
[2018-02-02] MEDS ORDERED: MAGNESIUM SULFATE 2GM/50ML 50 ML IV ONE (12:00)
[2018-02-02] MEDS ORDERED: SODIUM CHLORIDE 0.9% 1000ML 1,000 ML ONE (12:02)
[2018-02-02] MEDS ORDERED: SODIUM CHLORIDE 0.9% 1000ML 1,000 ML IV STA (12:03)
--- NOTE | 2018-02-02 12:56 | Diagnostic Imaging Report ---
History:Near syncope Comparison studies: Head CT on 10/29/2017 Technique: Axial images were obtained from the skull base to the vertex. Coronal and sagittal images reconstructed from the axial data. Dose modulation, iterative reconstruction, and/or weight based adjustment of the mA/kV was utilized to reduce the radiation dose to as low as reasonably achievable. Intravenous contrast: None Findings: Scalp/skull: No abnormalities. Extra-axial spaces: Incidental 3.5 cm arachnoid cyst anterior to the right temporal pole. No masses Brain sulci: Mildly prominent. Ventricles: Mild compensatory dilatation. No hydrocephalus. Parenchyma: Cortical encephalomalacic changes in the right inferior parietal lobule, which extend into the posterior superior and middle temporal gyri associated with regional volume loss and with the otic changes in the underlying white matter. An additional focal chronic cortical insult is are seen in the posterior cerebellar hemispheres bilaterally. Subtle additional hypodensities in the frontal white matter are nonspecific small vessel ischemic changes. No masses, hemorrhage, acute or additional chronic cortical vascular insults. Sellar/suprasellar region: No abnormalities. Craniocervical junction: Patent foramen magnum. No Chiari one malformation. Incidental findings: Coarse atherosclerotic calcifications in the carotid siphons and throughout the intradural segment of the left vertebral artery Impression: 1. No acute abnormalities. 2. No changes when compared to the previous head CT on 10/29/2017 Chronic findings: 1. Mild generalized volume loss. 2. Mild supratentorial white matter small vessel ischemic changes. 3. 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 Signed by: Dr. Jamey Umanzor M.D. on 02/02/2018 12:53 PM
--- NOTE | 2018-02-02 13:48 | Diagnostic Imaging Report ---
EXAM: CT Abdomen and Pelvis WITHOUT contrast INDICATION: ^ABD PAIN, NEAR-SYNCOPE ^[id number] ^1220 COMPARISON: CT dated 10/23/2017 TECHNIQUE: Abdomen and pelvis were scanned utilizing a multidetector helical scanner from the lung base to the pubic symphysis without administration of IV contrast. Absence of intravenous contrast decreases sensitivity for detection of focal lesions and vascular pathology. Coronal and sagittal reformations were obtained. Routine protocol was performed. IV CONTRAST: None ORAL CONTRAST: Water COMPLICATIONS: None RADIATION DOSE: Total DLP: 650 mGy*cm Estimated effective dose: (DLP x 0.015 x size factor) mSv CTDIvol has been reviewed. It is below the limits set by the Radiation Protocol Committee (RPC). FINDINGS: LINES and TUBES: None. LOWER THORAX: Unchanged right base scarring. There is also a right lower lobe calcified granuloma. Subcarinal calcified calcified lymph node. Partially imaged atherosclerotic calcification of the coronary arteries and valves. HEPATOBILIARY: Unenhanced liver is unremarkable. No biliary ductal dilation. GALLBLADDER: No radio-opaque stones or sludge. No wall thickening. SPLEEN: No splenomegaly. Numerous punctate calcified granulomas and posterior splenic capsular calcification. PANCREAS: No focal masses or ductal dilatation. ADRENALS: Stable 2 cm left and 1.9 cm right adrenal adenomas. KIDNEYS/URETERS: No hydronephrosis. Bilateral renal cysts are again seen. Nonspecific moderate bilateral perinephric edema. No stones. Vascular calcifications. GI TRACT: Postsurgical changes of right colon resection. No evidence of bowel obstruction. Colonic diverticulosis without evidence of diverticulitis. Splenic flexure colonic hypodense lesion (series 2, image 34), likely a small lipoma. Wall thickening of the colon at the anastomosis and in left upper quadrant. PELVIC ORGANS/BLADDER: Enlarged prostate gland. Bladder is unremarkable. LYMPH NODES: Nonspecific subcentimeter retroperitoneal lymph nodes for example 1.1 cm left para-aortic lymph node (series 2, image 45). VESSELS: There is severe atherosclerotic disease in the aorta and major arterial branches. No portal venous gas. PERITONEUM / RETROPERITONEUM: No free air or fluid. BONES: Advanced degenerative changes of the lower lumbar spine. SOFT TISSUES: Small fat-containing left inguinal hernia. IMPRESSION: 1. Limited study without intravenous contrast. 2. Postsurgical changes of right hemicolectomy. 3. Colonic wall thickening at the anastomosis and in splenic flexure, could represent colitis in the appropriate clinical setting (infectious/inflammatory versus ischemic). 4. Stable bilateral adrenal adenomas. 5. Evidence of prior granulomatous disease. 6. Severe atherosclerotic calcification of aorta and its branches. Signed by: Dr. Ken Flores MD on 02/02/2018 1:45 PM
[2018-02-02 13:55] LABS: CLARITY,URINE CLEAR (CLEAR); COLOR,URINE YELLOW (YELLOW); KETONES,URINE NEGATIVE (NEGATIVE); LEUKOCYTE ESTERASE ,URINE NEGATIVE (NEGATIVE); NITRITE,URINE NEGATIVE (NEGATIVE); PROTEIN,URINE DIPSTICK TRACE (NEGATIVE); URINE UROBILINOGEN 0.2 mg/dL (0.2 - 1)
[2018-02-02 13:56] LABS: BILIRUBIN,URINE NEGATIVE (NEGATIVE)
--- NOTE | 2018-02-02 14:10 | NUR ---
DR EL AT BEDSIDE FOR RE-EVAL AND DISCUSSING THE CURRENT PLAN OF CARE WITH PATIENT AND FAMILY,VERBALIZED UNDERSTANDING. NO SIGNS OF ACUTE DISTRESS NOTED AT THIS TIME.
[2018-02-02 14:23] LABS: AMORPHOUS SEDIMENT,URINE FEW (FEW); WBC,URINE (MAN) 0-5 /HPF (0-5)
[2018-02-02 14:25] LABS: CALCIUM OXALATE CRYSTALS,UR RARE (FEW)
== END 2018-02-02 14:40 | disposition home or self-care (01) ==
LOC: ER 09:50
DX: R55 Syncope and collapse (principal); R19.7 Diarrhea, unspecified; R11.0 Nausea; E86.0 Dehydration; K52.9 Noninfective gastroenteritis and colitis, unspecified; E83.42 Hypomagnesemia
CPT/HCPCS: 36415; 70450; 71045; 74176; 80053; 81001; 82550; 82553; 82948; 83605; 83690; 83735; 83880; 84484; 85025; 85610; 85730; 86850; 86900; 87040; 87086; 93005; 99284; J2405; J3475; J7030; J7040

== ENCOUNTER → 2018-12-29 | Outpatient (CLI) | payer MEDICARE, BC ==
--- NOTE | 2018-12-29 16:07 | Diagnostic Imaging Report ---
EXAMINATION: PA and lateral views of the chest. COMPARISON: 02/02/2018 CLINICAL HISTORY: Concern for pneumonia DISCUSSION: The lungs are well-inflated. Calcified granuloma in the right lower lobe is unchanged. Interval development of patchy opacity in the right lung base with loss of the lateral hemidiaphragmatic contour. Left lung is grossly clear. Mild prominence of the interstitium likely reflects age-related fibrotic changes and is unchanged. Cardiomediastinal contour is notable for atherosclerotic calcification of the thoracic aorta with otherwise normal heart size. No acute osseous abnormality. IMPRESSION: Patchy right lower lung airspace disease reflects atelectasis or pneumonia in the appropriate clinical setting. Signed by: Dr. Harley Tobar M.D. on 12/29/2018 4:03 PM
== END ==
LOC: RAD 15:41
DX: R91.8 Other nonspecific abnormal finding of lung field (principal)
CPT/HCPCS: 71046

== ENCOUNTER → 2020-01-09 | Outpatient (CLI) | payer MEDICARE, BC ==
[2020-01-09 10:56] LABS: EOSINOPHILS % 0.5 % (0.0-6.0); HEMATOCRIT 33.4 % (38.2-49.6); HEMOGLOBIN 10.6 g/dL (14.0-18.0); LYMPHOCYTES # (AUTO) 1.1 (1.0-3.2); LYMPHOCYTES % 28.1 % (18.0-39.1); MEAN CORPUSCULAR HGB CONC 31.7 g/dL (31-35); MEAN CORPUSCULAR VOLUME 94.6 fL (81-99); MONOCYTES # (AUTO) 0.4 (0.2-0.8); MONOCYTES % 9.5 % (4.4-11.3); NEUTROPHILS # (AUTO) 2.4 (2.1-6.9); NEUTROPHILS % 61.4 % (38.7-80.0); PLATELET COUNT 110 x10e3/uL (140-360); RED BLOOD COUNT 3.53 x10e6/uL (4.3-5.7); RED CELL DISTRIBUTION WIDTH 13.2 % (11.7-14.4)
[2020-01-09 11:22] LABS: ALBUMIN 3.5 g/dL (3.5-5.0); ALBUMIN/GLOBULIN RATIO 1.1 (0.8-2.0); ANION GAP 11.2 mmol/L (8-16); CALCIUM 8.1 mg/dL (8.4-10.2); CREATININE, SERUM 1.7 mg/dL (0.72-1.25); POTASSIUM 4.2 mmol/L (3.5-5.1)
== END ==
LOC: RAD 10:28
DX: Z01.818 Encounter for other preprocedural examination (principal); H26.9 Unspecified cataract
CPT/HCPCS: 36415; 71046; 80048; 80053; 83036; 85025; 93005

== ENCOUNTER 2020-03-07 17:07 | Observation (INO) | payer MEDICARE, BC ==
[~2020-03-07] VITALS: Ht 172.7 cm; Wt 90.3 kg
[2020-03-07 18:19] LABS: BASOPHILS % 0.3 % (0.0-1.0); EOSINOPHILS % 1.1 % (0.0-6.0); HEMATOCRIT 30.3 % (38.2-49.6); HEMOGLOBIN 9.8 g/dL (14.0-18.0); LYMPHOCYTES # (AUTO) 1.6 (1.0-3.2); LYMPHOCYTES % 41.6 % (18.0-39.1); MEAN CORPUSCULAR HEMOGLOBIN 30.2 pg (28-32); MEAN CORPUSCULAR HGB CONC 32.3 g/dL (31-35); MEAN CORPUSCULAR VOLUME 93.2 fL (81-99); MONOCYTES # (AUTO) 0.4 (0.2-0.8); MONOCYTES % 9.8 % (4.4-11.3); NEUTROPHILS # (AUTO) 1.8 (2.1-6.9); NEUTROPHILS % 46.9 % (38.7-80.0); PLATELET COUNT 151 x10e3/uL (140-360); RED BLOOD COUNT 3.25 x10e6/uL (4.3-5.7); RED CELL DISTRIBUTION WIDTH 12.9 % (11.7-14.4)
[2020-03-07 18:29] LABS: INR 1.23; PARTIAL THROMBOPLASTIN TIME 38.1 seconds (23.8-35.5); PROTHROMBIN TIME 16.3 seconds (11.9-14.5)
[2020-03-07] MEDS ORDERED: VANCOMYCIN 1GM/NS 250 ML 250 ML IV ONE (18:30)
[2020-03-07] MEDS ORDERED: PIPER-TAZ 3.375 GM 50 ML IV ONE (18:30)
[2020-03-07 18:36] LABS: ALBUMIN 3.3 g/dL (3.5-5.0); ALBUMIN/GLOBULIN RATIO 0.9 (0.8-2.0); ANION GAP 16.6 mmol/L (8-16); CREATININE, SERUM 1.64 mg/dL (0.72-1.25); POTASSIUM 4.6 mmol/L (3.5-5.1)
[2020-03-07] MEDS ORDERED: SODIUM CHLORIDE FLUSH 10 ML SYR INJ PRN (19:45)
[2020-03-07] MEDS ORDERED: ACETAMINOPHEN 325 MG TAB PO PRN (19:45)
[2020-03-07] MEDS ORDERED: DEXTROSE 50% SYRINGE 50 ML IV PRN (19:45)
[2020-03-07] MEDS ORDERED: HYDRALAZINE HCL 20 MG/ML VIAL IV STA (19:52)
[2020-03-07] MEDS: INSULIN REGULAR, HUMAN 100 UNIT/1 ML 3ML VIAL SQ SCH (22:45)
[2020-03-08 06:57] LABS: BASOPHILS % 0.3 % (0.0-1.0); EOSINOPHILS % 0.8 % (0.0-6.0); HEMATOCRIT 28.6 % (38.2-49.6); HEMOGLOBIN 9.4 g/dL (14.0-18.0); LYMPHOCYTES # (AUTO) 1.3 (1.0-3.2); LYMPHOCYTES % 35.4 % (18.0-39.1); MEAN CORPUSCULAR HEMOGLOBIN 30.3 pg (28-32); MEAN CORPUSCULAR HGB CONC 32.9 g/dL (31-35); MEAN CORPUSCULAR VOLUME 92.3 fL (81-99); MONOCYTES # (AUTO) 0.4 (0.2-0.8); MONOCYTES % 9.7 % (4.4-11.3); NEUTROPHILS # (AUTO) 1.9 (2.1-6.9); NEUTROPHILS % 53.8 % (38.7-80.0); PLATELET COUNT 140 x10e3/uL (140-360); RED CELL DISTRIBUTION WIDTH 12.9 % (11.7-14.4)
[2020-03-08 07:56] LABS: ALBUMIN/GLOBULIN RATIO 0.9 (0.8-2.0); ANION GAP 12.8 mmol/L (8-16); CALCIUM 7.7 mg/dL (8.4-10.2); CREATININE, SERUM 1.46 mg/dL (0.72-1.25); POTASSIUM 3.8 mmol/L (3.5-5.1)
[2020-03-08] MEDS ORDERED: PIPERACILLIN/TAZO 2.25 GM 50 ML IV SCH (08:00)
[2020-03-08] MEDS: INSULIN REGULAR, HUMAN 100 UNIT/1 ML 3ML VIAL SQ SCH ×2 (08:22→12:11)
[2020-03-08] MEDS ORDERED: PREGABALIN 75 MG CAP PO SCH (11:30)
[2020-03-08] MEDS ORDERED: FUROSEMIDE 40 MG TAB PO SCH (11:30)
[2020-03-08] MEDS ORDERED: VANCOMYCIN 750MG/NS 150ML IVPB 150 ML IV SCH (15:15)
[2020-03-08 17:03] VITALS: BP 170/90
[2020-03-08] MEDS ORDERED: SIMVASTATIN 20 MG TAB PO SCH (21:00)
[2020-03-09] MEDS ORDERED: OLMESARTAN 20 MG TAB PO SCH (09:00)
[2020-03-09] MEDS ORDERED: HYDROCHLOROTHIAZIDE 25 MG TAB PO SCH (09:00)
[2020-03-09] MEDS ORDERED: POTASSIUM CHLORIDE 10MEQ EA PO SCH (09:00)
[2020-03-09] MEDS ORDERED: NON-FORMULARY MEDICATION (Olmesartan/Hydrochlorothiazide (Benicar Hct 40-25 Mg Tablet) 1 T PO SCH (09:00)
== END 2020-03-08 17:03 | disposition home health service (06) ==
LOC: ER 17:21 → ERHOLD 19:41
DX: L03.116 Cellulitis of left lower limb (principal); I25.10 Atherosclerotic heart disease of native coronary artery without angina pectoris; E11.22 Type 2 diabetes mellitus with diabetic chronic kidney disease; I12.9 Hypertensive chronic kidney disease with stage 1 through stage 4 chronic kidney disease, or unspecified chronic kidney disease; N18.9 Chronic kidney disease, unspecified; I73.9 Peripheral vascular disease, unspecified; G62.9 Polyneuropathy, unspecified; F03.90 Unspecified dementia, unspecified severity, without behavioral disturbance, psychotic disturbance, mood disturbance, and anxiety; E78.5 Hyperlipidemia, unspecified; Z20.822 Contact with and (suspected) exposure to COVID-19; Z86.2 Personal history of diseases of the blood and blood-forming organs and certain disorders involving the immune mechanism; Z85.51 Personal history of malignant neoplasm of bladder; Z85.118 Personal history of other malignant neoplasm of bronchus and lung
CPT/HCPCS: 36415 ×2; 36569; 71045; 80053 ×2; 82948 ×2; 83605; 85025 ×2; 85610; 85730; 87040; 93925; 99284; G0378 ×2; J0360; J1817; J2543 ×2; J3370; U0002

== ENCOUNTER → 2020-04-06 | Outpatient (CLI) | payer MEDICARE, BC | LOC: MRI 09:44 | DX: L03.116 Cellulitis of left lower limb (principal) ==

== ENCOUNTER → 2020-07-30 | Outpatient (CLI) | payer MEDICARE, BC | LOC: RAD 12:25 | DX: R07.9 Chest pain, unspecified (principal); M79.605 Pain in left leg; M79.604 Pain in right leg | CPT/HCPCS: 73523; 93306; 93970 ==

== ENCOUNTER → 2020-08-03 | Outpatient (CLI) | payer MEDICARE, BC | LOC: MRI 12:06 | PROVIDERS: ATTEND Internal Medicine Gastroenterology | DX: M54.5 Low back pain (principal) | CPT/HCPCS: 72148 ==

== ENCOUNTER → 2021-04-16 | Outpatient (CLI) | payer MEDICARE, BC | LOC: MRI 13:52 | PROVIDERS: ATTEND Student in an Organized Health Care Education/Training Program | DX: R41.3 Other amnesia (principal) | CPT/HCPCS: 70551 ==

== ENCOUNTER 2021-07-04 09:19 | Emergency (ER) | payer MEDICARE, BC ==
[~2021-07-04] VITALS: Ht 172.7 cm; Wt 90.3 kg
[2021-07-04] MEDS ORDERED: SODIUM CHLORIDE 0.9% 250ML 250 ML IV ONE (09:30)
[2021-07-04 10:15] LABS: EOSINOPHILS % 1.5 % (0.0-6.0); HEMATOCRIT 22.9 % (38.2-49.6); LYMPHOCYTES % 35.1 % (18.0-39.1); MEAN CORPUSCULAR HGB CONC 29.3 g/dL (31-35); MEAN CORPUSCULAR VOLUME 95.8 fL (81-99); MONOCYTES # (AUTO) 0.3 (0.2-0.8); MONOCYTES % 9.6 % (4.4-11.3); NEUTROPHILS # (AUTO) 1.5 (2.1-6.9); NEUTROPHILS % 53.4 % (38.7-80.0); PLATELET COUNT 159 x10e3/uL (140-360); RED BLOOD COUNT 2.39 x10e6/uL (4.3-5.7); RED CELL DISTRIBUTION WIDTH 14.1 % (11.7-14.4)
[2021-07-04 10:27] LABS: HEMOGLOBIN 6.7 g/dL (14.0-18.0)
[2021-07-04 10:35] LABS: ANION GAP 13.5 mmol/L (8-16); CALCIUM 7.7 mg/dL (8.4-10.2); POTASSIUM 4.5 mmol/L (3.5-5.1)
== END 2021-07-04 16:13 | disposition home or self-care (01) ==
LOC: ER 09:30
DX: D64.9 Anemia, unspecified (principal); I25.10 Atherosclerotic heart disease of native coronary artery without angina pectoris; E11.22 Type 2 diabetes mellitus with diabetic chronic kidney disease; I12.9 Hypertensive chronic kidney disease with stage 1 through stage 4 chronic kidney disease, or unspecified chronic kidney disease; N18.9 Chronic kidney disease, unspecified; E78.5 Hyperlipidemia, unspecified; Z79.899 Other long term (current) drug therapy; Z85.51 Personal history of malignant neoplasm of bladder; Z85.118 Personal history of other malignant neoplasm of bronchus and lung; Z86.718 Personal history of other venous thrombosis and embolism; Z86.73 Personal history of transient ischemic attack (TIA), and cerebral infarction without residual deficits
CPT/HCPCS: 36415; 80048; 85025; 86850; 86900; 86920; 99283; J7050; P9016

== ENCOUNTER 2021-07-17 10:31 | Emergency (ER) | payer MEDICARE, BC ==
[~2021-07-17] VITALS: Ht 172.7 cm; Wt 90.3 kg
[2021-07-17] MEDS ORDERED: SODIUM CHLORIDE 0.9% 250ML 250 ML IV ONE (10:45)
[2021-07-17 11:07] LABS: BASOPHILS % 0.4 % (0.0-1.0); EOSINOPHILS % 0.8 % (0.0-6.0); HEMATOCRIT 24.1 % (38.2-49.6); HEMOGLOBIN 7.3 g/dL (14.0-18.0); LYMPHOCYTES # (AUTO) 1.1 (1.0-3.2); LYMPHOCYTES % 41.4 % (18.0-39.1); MEAN CORPUSCULAR HGB CONC 30.3 g/dL (31-35); MEAN CORPUSCULAR VOLUME 95.6 fL (81-99); MONOCYTES # (AUTO) 0.2 (0.2-0.8); MONOCYTES % 9.2 % (4.4-11.3); NEUTROPHILS # (AUTO) 1.3 (2.1-6.9); NEUTROPHILS % 48.2 % (38.7-80.0); PLATELET COUNT 115 x10e3/uL (140-360); RED BLOOD COUNT 2.52 x10e6/uL (4.3-5.7); RED CELL DISTRIBUTION WIDTH 16.3 % (11.7-14.4)
[2021-07-17 11:14] LABS: ALANINE AMINOTRANSFERASE 15 IU/L (0-55); ALBUMIN 3.2 g/dL (3.5-5.0); ALKALINE PHOSPHATASE 61 IU/L (40-150); ANION GAP 15.7 mmol/L (8-16); BLOOD UREA NITROGEN 53 mg/dL (7-26); BUN/CREATININE RATIO 27 (6-25); CALCIUM 7.8 mg/dL (8.4-10.2); CARBON DIOXIDE 17 mmol/L (22-29); CHLORIDE 114 mmol/L (98-107); CREATINE KINASE 108 IU/L (30-200); CREATININE, SERUM 1.95 mg/dL (0.72-1.25); GLUCOSE 150 mg/dL (74-118); POTASSIUM 4.7 mmol/L (3.5-5.1); SODIUM 142 mmol/L (136-145)
[2021-07-17] MEDS ORDERED: IRON DEXTRAN INJ 50 MG in SODIUM CHLORIDE 0.9% 100 ML 100 ML IV ONE (11:30)
[2021-07-17] MEDS ORDERED: SODIUM CHLORIDE 0.9% 250ML 250 ML ONE ×3 (15:17→17:40)
[2021-07-17] MEDS ORDERED: FUROSEMIDE INJ 10 MG/ML 2 ML VIAL IV ONE (18:00)
[2021-07-17] MEDS ORDERED: FUROSEMIDE INJ 10 MG/ML 4 ML VIAL ONE (18:06)
== END 2021-07-17 20:00 | disposition home or self-care (01) ==
LOC: ER 10:56
DX: D64.9 Anemia, unspecified (principal); E11.65 Type 2 diabetes mellitus with hyperglycemia; I10 Essential (primary) hypertension; F03.90 Unspecified dementia, unspecified severity, without behavioral disturbance, psychotic disturbance, mood disturbance, and anxiety; I25.10 Atherosclerotic heart disease of native coronary artery without angina pectoris; E78.5 Hyperlipidemia, unspecified; G62.9 Polyneuropathy, unspecified; Z85.51 Personal history of malignant neoplasm of bladder; Z85.118 Personal history of other malignant neoplasm of bronchus and lung
CPT/HCPCS: 36415; 80053; 82550; 82553; 84484; 85025; 86850; 86900; 86920; 99283; J1750; J1940; J7050; P9016

== ENCOUNTER → 2021-07-23 | Outpatient (CLI) | payer MEDICARE, BC | LOC: RAD 13:29 | PROVIDERS: ATTEND Internal Medicine Gastroenterology | DX: D64.9 Anemia, unspecified (principal) | CPT/HCPCS: 74019 ==

== ENCOUNTER 2021-09-23 17:33 | Observation (INO) | payer MEDICARE, BC ==
[~2021-09-23] VITALS: Ht 172.7 cm; Wt 89.4 kg
[2021-09-23 18:05] LABS: BASOPHILS % 0.4 % (0.0-1.0); EOSINOPHILS % 1.4 % (0.0-6.0); MEAN CORPUSCULAR HEMOGLOBIN 30.7 pg (28-32); MEAN CORPUSCULAR HGB CONC 29.8 g/dL (31-35); MEAN CORPUSCULAR VOLUME 103.1 fL (81-99); MONOCYTES # (AUTO) 0.3 (0.2-0.8); MONOCYTES % 10.6 % (4.4-11.3); NEUTROPHILS # (AUTO) 1.5 (2.1-6.9); NEUTROPHILS % 52.9 % (38.7-80.0); PLATELET COUNT 120 x10e3/uL (140-360); RED BLOOD COUNT 1.92 x10e6/uL (4.3-5.7); RED CELL DISTRIBUTION WIDTH 15.7 % (11.7-14.4)
[2021-09-23 18:07] LABS: HEMOGLOBIN 5.9 g/dL (14.0-18.0)
[2021-09-23 18:08] LABS: HEMATOCRIT 19.8 % (38.2-49.6)
[2021-09-23] MEDS ORDERED: SODIUM CHLORIDE 0.9% 250ML 250 ML IV ONE (18:15)
[2021-09-23 18:18] LABS: INR 1.16; PARTIAL THROMBOPLASTIN TIME 31.9 seconds (23.8-35.5); PROTHROMBIN TIME 15.8 seconds (11.9-14.5)
[2021-09-23 18:21] LABS: ALBUMIN 3.1 g/dL (3.5-5.0); ALBUMIN/GLOBULIN RATIO 1.1 (0.8-2.0); ANION GAP 12.7 mmol/L (8-16); CALCIUM 7.7 mg/dL (8.4-10.2); CREATININE, SERUM 2.34 mg/dL (0.72-1.25); POTASSIUM 4.7 mmol/L (3.5-5.1)
[2021-09-23] MEDS: SODIUM CHLORIDE 0.9% 1000ML 1,000 ML IV SCH (19:40)
[2021-09-23 22:00] VITALS: BP 174/64
[2021-09-23 22:23] VITALS: BP 174/64
[2021-09-24] VITALS: BP 155/62
[2021-09-24 00:14] VITALS: BP 174/64
[2021-09-24] MEDS: SODIUM CHLORIDE 0.9% 1000ML 1,000 ML IV SCH ×2 (01:12→10:30)
[2021-09-24] MEDS ORDERED: SODIUM CHLORIDE 0.9% 250ML 250 ML ONE ×2 (01:28→06:30)
[2021-09-24 04:00] VITALS: BP 163/56
[2021-09-24 08:24] VITALS: BP 163/56
[2021-09-24 09:24] VITALS: BP 183/63
[2021-09-24] MEDS ORDERED: FISH OIL 1,0001 EAC2 PO (10:20)
[2021-09-24] MEDS ORDERED: AMLODIPINE BESYL5 MG PO (10:23)
[2021-09-24] MEDS ORDERED: TRESIBA100 UNIT/1 SQ (10:23)
[2021-09-24] MEDS ORDERED: MESALAMINE1 GM PO (10:23)
[2021-09-24] MEDS ORDERED: LOSARTAN POTASS25 MG PO (10:23)
[2021-09-24] MEDS ORDERED: LYRICA150 MG PO (10:23)
[2021-09-24 10:34] LABS: BASOPHILS % 0.3 % (0.0-1.0); EOSINOPHILS # (AUTO) 0.1 (0.0-0.4); EOSINOPHILS % 1.6 % (0.0-6.0); HEMATOCRIT 27.9 % (38.2-49.6); HEMOGLOBIN 8.6 g/dL (14.0-18.0); LYMPHOCYTES # (AUTO) 0.9 (1.0-3.2); LYMPHOCYTES % 28.8 % (18.0-39.1); MEAN CORPUSCULAR HEMOGLOBIN 30.2 pg (28-32); MEAN CORPUSCULAR HGB CONC 30.8 g/dL (31-35); MEAN CORPUSCULAR VOLUME 97.9 fL (81-99); MONOCYTES # (AUTO) 0.3 (0.2-0.8); MONOCYTES % 8.8 % (4.4-11.3); NEUTROPHILS # (AUTO) 1.9 (2.1-6.9); NEUTROPHILS % 59.9 % (38.7-80.0); PLATELET COUNT 111 x10e3/uL (140-360); RED BLOOD COUNT 2.85 x10e6/uL (4.3-5.7); RED CELL DISTRIBUTION WIDTH 17.6 % (11.7-14.4)
[2021-09-24] MEDS ORDERED: IRON DEXTRAN INJ 50 MG in SODIUM CHLORIDE 0.9% 100 ML IV ONE (12:00)
[2021-09-24 12:58] VITALS: BP 165/57
[2021-09-24] MEDS ORDERED: AMLODIPINE BESYLATE 5 MG TAB PO SCH (17:00)
[2021-09-24] MEDS ORDERED: PREGABALIN 75 MG CAP PO SCH (17:00)
[2021-09-25] MEDS ORDERED: OMEGA 3 POLYUNSAT FATTY ACIDS 1000 MG SOFTGEL PO SCH (09:00)
[2021-09-25] MEDS ORDERED: NON-FORMULARY MEDICATION (Omega-3 Fatty Acids/Fish Oil (Fish Oil 1,000 Mg Capsule) 1 CAP) PO SCH (09:00)
[2021-09-25] MEDS ORDERED: MESALAMINE 1.2 GM PO SCH (09:00)
[2021-09-25] MEDS ORDERED: LOSARTAN POTASSIUM 25 MG TAB PO SCH (09:00)
[2021-09-25] MEDS ORDERED: INSULIN DEGLUDEC 20 UNIT SC SCH (09:00)
[2021-09-25] MEDS ORDERED: SIMVASTATIN 20 MG TAB PO SCH (21:00)
== END 2021-09-24 13:45 | disposition home or self-care (01) ==
LOC: ER 17:39 → ERHOLD 18:31 → MED/SURG3 21:48
DX: K55.21 Angiodysplasia of colon with hemorrhage (principal); D64.9 Anemia, unspecified; E11.22 Type 2 diabetes mellitus with diabetic chronic kidney disease; I12.9 Hypertensive chronic kidney disease with stage 1 through stage 4 chronic kidney disease, or unspecified chronic kidney disease; N18.30 Chronic kidney disease, stage 3 unspecified; I25.10 Atherosclerotic heart disease of native coronary artery without angina pectoris; E11.42 Type 2 diabetes mellitus with diabetic polyneuropathy; D62 Acute posthemorrhagic anemia; I35.0 Nonrheumatic aortic (valve) stenosis; Z79.4 Long term (current) use of insulin; Z85.51 Personal history of malignant neoplasm of bladder; Z85.118 Personal history of other malignant neoplasm of bronchus and lung; Z86.73 Personal history of transient ischemic attack (TIA), and cerebral infarction without residual deficits; Z20.822 Contact with and (suspected) exposure to COVID-19
CPT/HCPCS: 36415 ×2; 36430; 80053; 82948 ×2; 85025 ×2; 85610; 85730; 86850; 86900; 86920; 94799; 99284; C9113 ×2; G0378 ×2; J1750; J7030 ×2; J7050 ×3; P9016 ×2; U0002

== ENCOUNTER → 2022-06-25 | Outpatient (CLI) | payer MEDICARE, BC ==
[~2022-06-25] MED LIST changes: +AMLODIPINE BESYL5 MG PO; +FISH OIL 1,0001 EAC2 PO; +LOSARTAN POTASS25 MG PO; +LYRICA150 MG PO; +MESALAMINE1 GM PO; +TRESIBA100 UNIT/1 SQ
== END ==
LOC: RAD 11:16
PROVIDERS: ATTEND Internal Medicine
DX: R06.02 Shortness of breath (principal); J90 Pleural effusion, not elsewhere classified; R06.01 Orthopnea
CPT/HCPCS: 71046

== ENCOUNTER → 2022-07-08 | Outpatient (CLI) | payer MEDICARE, BC | LOC: CT 15:31 | PROVIDERS: ATTEND Internal Medicine | DX: R06.02 Shortness of breath (principal); R06.01 Orthopnea | CPT/HCPCS: 71250 ==

== ENCOUNTER → 2022-07-11 | Outpatient (CLI) | payer MEDICARE, BC ==
[2022-07-11 12:38] LABS: BASOPHILS % 0.3 % (0.0-1.0); EOSINOPHILS % 0.9 % (0.0-6.0); HEMATOCRIT 27.9 % (38.2-49.6); HEMOGLOBIN 8.4 g/dL (14.0-18.0); LYMPHOCYTES # (AUTO) 0.9 (1.0-3.2); LYMPHOCYTES % 26.1 % (18.0-39.1); MEAN CORPUSCULAR HEMOGLOBIN 30.3 pg (28-32); MEAN CORPUSCULAR HGB CONC 30.1 g/dL (31-35); MEAN CORPUSCULAR VOLUME 100.7 fL (81-99); MONOCYTES # (AUTO) 0.4 (0.2-0.8); MONOCYTES % 10.3 % (4.4-11.3); NEUTROPHILS # (AUTO) 2.2 (2.1-6.9); NEUTROPHILS % 62.1 % (38.7-80.0); PLATELET COUNT 142 x10e3/uL (140-360); RED BLOOD COUNT 2.77 x10e6/uL (4.3-5.7)
[2022-07-11 13:17] LABS: INR 1.43; PARTIAL THROMBOPLASTIN TIME 37.5 seconds (23.8-35.5)
[2022-07-11 15:00] LABS: BODY FLUID TYPE PLEURAL
[2022-07-11 15:01] LABS: BODY FLUID APPEARANCE CLOUDY; BODY FLUID COLOR YELLOW; RBC,BODY FLUID 1000 cells/uL; WBC,BODY FLUID 174 cells/uL
[2022-07-11 20:10] LABS: BASOPHILS,BODY FLUID 1 %; LYMPHOCYTES,BODY FLUID 34 %; MONO/MACROPHG,BODY FLUID 41 %; NEUTROPHILS,BODY FLUID 3 %; OTHER CELLS,BODY FLUID 21 %
== END ==
LOC: US 12:13
PROVIDERS: ATTEND Internal Medicine
DX: J90 Pleural effusion, not elsewhere classified (principal)
CPT/HCPCS: 32555; 36415; 71045; 82465; 83615; 84157; 85025; 85610; 85730; 87070; 87205; 89051; C1729

== ENCOUNTER 2022-07-28 17:29 | Inpatient (IN) | payer OTHER, MEDICARE, BC ==
[~2022-07-28] VITALS: Ht 172.7 cm; Wt 93.4 kg
[2022-07-28] MEDS ORDERED: SODIUM CHLORIDE 0.9% 100 ML ONE (20:50)
[2022-07-28] MEDS ORDERED: CEFTRIAXONE 1 GM VIAL ONE (20:50)
[2022-07-28] MEDS ORDERED: SODIUM CHLORIDE 0.9% 1000ML 1,000 ML IV SCH (21:00)
[2022-07-28] MEDS: INSULIN LISPRO 100 UNIT/1 ML 3ML VIAL SQ SCH (21:00)
[2022-07-28] MEDS ORDERED: DEXTROSE 50% SYRINGE 50 ML IV PRN (21:00)
[2022-07-28 23:00] VITALS: BP 150/61; PULSE 88; RESP 18; TEMP 98; O2SAT 97
[2022-07-28 23:14] VITALS: BP 150/61; PULSE 88; RESP 18; TEMP 98; O2SAT 97
[2022-07-28] MEDS ORDERED: FUROSEMIDE INJ 10 MG/ML 2 ML VIAL IV ONE (23:15)
[2022-07-28 23:40] VITALS: PULSE 90; RESP 20; O2SAT 97
[2022-07-28] MEDS ORDERED: MELATONIN 3 MG TAB PO ONE (23:40)
[2022-07-28] MEDS ORDERED: ALBUTEROL/IPRATROPIUM 3 ML NEB NEB PRN (23:45)
[2022-07-29] VITALS (81 sets, daily range): BP systolic 100–150; BP diastolic 31–73; PULSE 65–97; RESP 9–28; TEMP 97–98.8; O2SAT 87–100
[2022-07-29 00:47] LABS: CLARITY,URINE CLEAR (CLEAR); COLOR,URINE YELLOW (YELLOW); KETONES,URINE NEGATIVE (NEGATIVE); LEUKOCYTE ESTERASE ,URINE NEGATIVE (NEGATIVE); NITRITE,URINE NEGATIVE (NEGATIVE); PROTEIN,URINE DIPSTICK >=300 (NEGATIVE); URINE UROBILINOGEN 0.2 mg/dL (0.2 - 1)
[2022-07-29 00:56] LABS: BACTERIA,URINE FEW /HPF; EPITHELIAL CELLS,URINE FEW /LPF; RBC,URINE 0-5 /HPF (0-5); WBC,URINE (MAN) 0-5 /HPF (0-5)
[2022-07-29] MEDS ORDERED: DEXTROSE 50% SYRINGE 50 ML IV PRN (01:15)
[2022-07-29 01:45] LABS: ABG PH 7.08 (7.35-7.45)
[2022-07-29 01:46] LABS: ABG HCO3 24 mmol/L (22-26); ABG PCO2 82 mmHg (35-45); ABG PO2 336 mmHg (80-105); ABG TCO2 27
[2022-07-29 05:46] LABS: ABG PH 7.14 (7.35-7.45)
[2022-07-29 05:47] LABS: ABG HCO3 22 mmol/L (22-26); ABG PCO2 66 mmHg (35-45); ABG PO2 57 mmHg (80-105); ABG TCO2 24
[2022-07-29 06:48] LABS: EOSINOPHILS % 0.3 % (0.0-6.0); HEMATOCRIT 27.1 % (38.2-49.6); HEMOGLOBIN 8.1 g/dL (14.0-18.0); LYMPHOCYTES # (AUTO) 1.1 (1.0-3.2); LYMPHOCYTES % 33.1 % (18.0-39.1); MEAN CORPUSCULAR HGB CONC 29.9 g/dL (31-35); MEAN CORPUSCULAR VOLUME 103.8 fL (81-99); MONOCYTES # (AUTO) 0.4 (0.2-0.8); MONOCYTES % 11.3 % (4.4-11.3); NEUTROPHILS # (AUTO) 1.8 (2.1-6.9); NEUTROPHILS % 54.7 % (38.7-80.0); PLATELET COUNT 112 x10e3/uL (140-360); RED BLOOD COUNT 2.61 x10e6/uL (4.3-5.7); RED CELL DISTRIBUTION WIDTH 13.2 % (11.7-14.4)
[2022-07-29 06:56] LABS: INR 1.36; PROTHROMBIN TIME 17.3 seconds (11.9-14.5)
[2022-07-29 07:04] LABS: ALBUMIN/GLOBULIN RATIO 1.1 (0.8-2.0); ANION GAP 14.4 mmol/L (8-16); CREATININE, SERUM 3.64 mg/dL (0.72-1.25); POTASSIUM 5.4 mmol/L (3.5-5.1)
[2022-07-29] MEDS: INSULIN LISPRO 100 UNIT/1 ML 3ML VIAL SQ SCH ×4 (07:30→20:31)
[2022-07-29] MEDS: INSULIN REGULAR, HUMAN 100 UNIT/1 ML SQ SCH ×3 (07:30→17:42)
[2022-07-29 07:32] LABS: MAGNESIUM 1.5 MG/DL (1.3-2.1); PHOSPHORUS 5.4 MG/DL (2.3-4.7)
[2022-07-29 07:54] LABS: THYROID STIMULATING HORMONE 2.688 uIU/mL (0.350-4.940)
[2022-07-29] MEDS: OMEGA 3 POLYUNSAT FATTY ACIDS 1000 MG SOFTGEL PO SCH (08:33)
[2022-07-29] MEDS: CRESTOR 10MG PO SCH (08:33)
[2022-07-29] MEDS ORDERED: FAMOTIDINE 20 MG TAB PO SCH (09:00)
[2022-07-29] MEDS ORDERED: AMLODIPINE BESYLATE 5 MG TAB PO SCH (09:00)
[2022-07-29] MEDS: MESALAMINE 1.2 GM PO SCH (09:00)
[2022-07-29 11:06] LABS: ABG HCO3 22 mmol/L (22-26); ABG PCO2 68 mmHg (35-45); ABG PH 7.12 (7.35-7.45); ABG PO2 106 mmHg (80-105); ABG TCO2 24
[2022-07-29] MEDS ORDERED: SOD POLYSTYRENE SULFONATE SUSP 15 GM/60 ML BTL PO ONE (11:30)
[2022-07-29] MEDS ORDERED: LACTULOSE SYRUP 20 GM/30 ML UDC PO ONE (11:30)
[2022-07-29] MEDS: SODIUM BICARBONATE 8.4% SYRING 100 ML in DEXTROSE 5% 1,000 ML IV SCH (12:43)
[2022-07-29 14:40] LABS: BODY FLUID APPEARANCE SL.CLOUDY; BODY FLUID COLOR YELLOW; BODY FLUID TYPE PLEURAL
[2022-07-29 15:00] LABS: RBC,BODY FLUID 2000 cells/uL; WBC,BODY FLUID 133 cells/uL
[2022-07-29 16:49] LABS: LYMPHOCYTES,BODY FLUID 23 %; MONO/MACROPHG,BODY FLUID 60 %; NEUTROPHILS,BODY FLUID 3 %
[2022-07-29 16:50] LABS: OTHER CELLS,BODY FLUID 14 %
[2022-07-29 17:26] LABS: ABG HCO3 21 mmol/L (22-26); ABG PCO2 64 mmHg (35-45); ABG PH 7.13 (7.35-7.45); ABG PO2 93 mmHg (80-105); ABG TCO2 23
[2022-07-29 20:41] LABS: ABG PH 7.09 (7.35-7.45)
[2022-07-29 20:42] LABS: ABG HCO3 23 mmol/L (22-26); ABG PCO2 76 mmHg (35-45); ABG PO2 90 mmHg (80-105); ABG TCO2 25
[2022-07-29] MEDS: TAMSULOSIN HCL 0.4 MG CAP PO SCH (20:59)
[2022-07-30] VITALS (54 sets, daily range): BP systolic 94–150; BP diastolic 24–111; PULSE 64–110; RESP 0–29; TEMP 96.7–98.2; O2SAT 95–100
[2022-07-30] MEDS: SODIUM BICARBONATE 8.4% SYRING 100 ML in DEXTROSE 5% 1,000 ML IV SCH ×2 (01:14→17:46)
[2022-07-30 07:00] LABS: BASOPHILS % 0.2 % (0.0-1.0); EOSINOPHILS % 0.2 % (0.0-6.0); HEMATOCRIT 29.6 % (38.2-49.6); HEMOGLOBIN 8.9 g/dL (14.0-18.0); LYMPHOCYTES # (AUTO) 0.5 (1.0-3.2); LYMPHOCYTES % 13.2 % (18.0-39.1); MEAN CORPUSCULAR HEMOGLOBIN 31.1 pg (28-32); MEAN CORPUSCULAR HGB CONC 30.1 g/dL (31-35); MEAN CORPUSCULAR VOLUME 103.5 fL (81-99); MONOCYTES # (AUTO) 0.5 (0.2-0.8); MONOCYTES % 12.7 % (4.4-11.3); NEUTROPHILS # (AUTO) 2.9 (2.1-6.9); PLATELET COUNT 85 x10e3/uL (140-360); RED BLOOD COUNT 2.86 x10e6/uL (4.3-5.7); RED CELL DISTRIBUTION WIDTH 12.7 % (11.7-14.4)
[2022-07-30 07:23] LABS: ANION GAP 13.8 mmol/L (8-16); CALCIUM 7.9 mg/dL (8.4-10.2); CREATININE, SERUM 3.35 mg/dL (0.72-1.25); MAGNESIUM 1.4 MG/DL (1.3-2.1); PHOSPHORUS 5.3 MG/DL (2.3-4.7); POTASSIUM 4.8 mmol/L (3.5-5.1)
[2022-07-30] MEDS: INSULIN LISPRO 100 UNIT/1 ML 3ML VIAL SQ SCH ×4 (07:30→21:00)
[2022-07-30] MEDS ORDERED: PANTOPRAZOLE SOD 40 MG TABEC PO SCH (07:30)
[2022-07-30] MEDS: OMEGA 3 POLYUNSAT FATTY ACIDS 1000 MG SOFTGEL PO SCH (08:53)
[2022-07-30] MEDS: CRESTOR 10MG PO SCH (08:53)
[2022-07-30] MEDS: MESALAMINE 1.2 GM PO SCH (08:53)
[2022-07-30] MEDS ORDERED: BUMETANIDE INJ 0.25MG/ML 4ML VIAL IV ONE (10:00)
[2022-07-30 11:06] LABS: ABG HCO3 24 mmol/L (22-26); ABG PCO2 63 mmHg (35-45); ABG PH 7.18 (7.35-7.45); ABG PO2 112 mmHg (80-105); ABG TCO2 25
[2022-07-30] MEDS ORDERED: SODIUM CHLORIDE 0.9% 250ML 500 ML ONE (12:55)
[2022-07-30] MEDS ORDERED: CEFTRIAXONE 1 GM VIAL ONE (12:55)
[2022-07-30 16:39] LABS: ABG PH 7.21 (7.35-7.45)
[2022-07-30 16:40] LABS: ABG HCO3 26 mmol/L (22-26); ABG PCO2 65 mmHg (35-45); ABG PO2 109 mmHg (80-105); ABG TCO2 28
[2022-07-30] MEDS: TAMSULOSIN HCL 0.4 MG CAP PO SCH (20:57)
[2022-07-31] VITALS (42 sets, daily range): BP systolic 99–182; BP diastolic 53–122; PULSE 25–100; RESP 7–26; TEMP 97.6–98.7; O2SAT 86–100
[2022-07-31 06:41] LABS: BASOPHILS % 0.4 % (0.0-1.0); EOSINOPHILS % 1.1 % (0.0-6.0); HEMATOCRIT 25.3 % (38.2-49.6); HEMOGLOBIN 7.9 g/dL (14.0-18.0); LYMPHOCYTES # (AUTO) 0.6 (1.0-3.2); LYMPHOCYTES % 21.3 % (18.0-39.1); MEAN CORPUSCULAR HEMOGLOBIN 30.9 pg (28-32); MEAN CORPUSCULAR HGB CONC 31.2 g/dL (31-35); MEAN CORPUSCULAR VOLUME 98.8 fL (81-99); MONOCYTES # (AUTO) 0.4 (0.2-0.8); MONOCYTES % 14.7 % (4.4-11.3); NEUTROPHILS # (AUTO) 1.7 (2.1-6.9); NEUTROPHILS % 62.1 % (38.7-80.0); RED BLOOD COUNT 2.56 x10e6/uL (4.3-5.7); RED CELL DISTRIBUTION WIDTH 12.8 % (11.7-14.4)
[2022-07-31 06:53] LABS: PLATELET COUNT 106 x10e3/uL (140-360)
[2022-07-31 07:02] LABS: ALBUMIN 2.5 g/dL (3.5-5.0); ALBUMIN/GLOBULIN RATIO 0.9 (0.8-2.0); ANION GAP 14.3 mmol/L (8-16); CALCIUM 7.8 mg/dL (8.4-10.2); CREATININE, SERUM 2.62 mg/dL (0.72-1.25); POTASSIUM 4.3 mmol/L (3.5-5.1)
[2022-07-31 07:24] LABS: MAGNESIUM 1.4 MG/DL (1.3-2.1); PHOSPHORUS 4.4 MG/DL (2.3-4.7)
[2022-07-31] MEDS: INSULIN LISPRO 100 UNIT/1 ML 3ML VIAL SQ SCH ×4 (07:30→21:00)
[2022-07-31] MEDS: OMEGA 3 POLYUNSAT FATTY ACIDS 1000 MG SOFTGEL PO SCH (09:00)
[2022-07-31 09:30] LABS: ABG HCO3 28 mmol/L (22-26); ABG PCO2 64 mmHg (35-45); ABG PH 7.26 (7.35-7.45); ABG PO2 70 mmHg (80-105); ABG TCO2 30
[2022-07-31] MEDS: SODIUM BICARBONATE 8.4% SYRING 100 ML in DEXTROSE 5% 1,000 ML IV SCH (10:38)
[2022-07-31] MEDS ORDERED: MAGNESIUM SULFATE 2GM/50ML 50 ML IV ONE (11:00)
[2022-07-31] MEDS ORDERED: BUMETANIDE INJ 0.25MG/ML 4ML VIAL IV ONE (15:30)
[2022-07-31] MEDS ORDERED: DEXTROSE 5%/0.225% SOD CHL 1,000 ML IV SCH (15:30)
[2022-07-31] MEDS ORDERED: LABETALOL HCL 5 MG/ML 20ML VIAL IV PRN (19:45)
[2022-07-31] MEDS: TAMSULOSIN HCL 0.4 MG CAP PO SCH (22:24)
[2022-07-31] MEDS: HYDROCODONE/APAP 7.5MG-325MG 1 EA TAB PO PRN (22:27)
[2022-08-01] VITALS (31 sets, daily range): BP systolic 134–190; BP diastolic 54–117; PULSE 46–111; RESP 12–26; TEMP 97.8–98.7; O2SAT 90–100
[2022-08-01] MEDS: HYDROCODONE/APAP 7.5MG-325MG 1 EA TAB PO PRN (04:21)
[2022-08-01 06:45] LABS: BASOPHILS % 0.3 % (0.0-1.0); EOSINOPHILS % 0.5 % (0.0-6.0); HEMATOCRIT 26.4 % (38.2-49.6); HEMOGLOBIN 8.3 g/dL (14.0-18.0); LYMPHOCYTES # (AUTO) 0.6 (1.0-3.2); LYMPHOCYTES % 15.9 % (18.0-39.1); MEAN CORPUSCULAR HGB CONC 31.4 g/dL (31-35); MEAN CORPUSCULAR VOLUME 98.5 fL (81-99); MONOCYTES # (AUTO) 0.5 (0.2-0.8); MONOCYTES % 13.6 % (4.4-11.3); NEUTROPHILS # (AUTO) 2.7 (2.1-6.9); NEUTROPHILS % 69.2 % (38.7-80.0); PLATELET COUNT 133 x10e3/uL (140-360); RED BLOOD COUNT 2.68 x10e6/uL (4.3-5.7)
[2022-08-01 07:10] LABS: ALBUMIN 2.7 g/dL (3.5-5.0); ALBUMIN/GLOBULIN RATIO 0.9 (0.8-2.0); ANION GAP 17.2 mmol/L (8-16); CALCIUM 8.2 mg/dL (8.4-10.2); CREATININE, SERUM 2.11 mg/dL (0.72-1.25); POTASSIUM 4.2 mmol/L (3.5-5.1)
[2022-08-01] MEDS: INSULIN LISPRO 100 UNIT/1 ML 3ML VIAL SQ SCH ×4 (07:56→21:54)
[2022-08-01] MEDS ORDERED: MAGNESIUM SULFATE 2GM/50ML 50 ML IV ONE ×2 (08:00→11:00)
[2022-08-01] MEDS: OMEGA 3 POLYUNSAT FATTY ACIDS 1000 MG SOFTGEL PO SCH (09:08)
[2022-08-01] MEDS: AMLODIPINE BESYLATE 5 MG TAB PO SCH ×2 (09:08→16:17)
[2022-08-01] MEDS: ALLOPURINOL 100 MG TAB PO SCH (13:36)
[2022-08-01] MEDS ORDERED: BUMETANIDE INJ 0.25MG/ML 4ML VIAL IV ONE (18:15)
[2022-08-01 18:39] LABS: ABG HCO3 31 mmol/L (22-26); ABG PCO2 61 mmHg (35-45); ABG PH 7.31 (7.35-7.45); ABG PO2 55 mmHg (80-105); ABG TCO2 33
[2022-08-01] MEDS: TAMSULOSIN HCL 0.4 MG CAP PO SCH (21:49)
[2022-08-02] VITALS (28 sets, daily range): BP systolic 143–185; BP diastolic 66–85; PULSE 50–108; RESP 11–29; TEMP 97.5–98.7; O2SAT 91–100
[2022-08-02] MEDS: HYDROCODONE/APAP 7.5MG-325MG 1 EA TAB PO PRN (02:19)
[2022-08-02 05:55] LABS: BASOPHILS % 0.3 % (0.0-1.0); EOSINOPHILS % 0.8 % (0.0-6.0); HEMATOCRIT 26.5 % (38.2-49.6); HEMOGLOBIN 8.4 g/dL (14.0-18.0); LYMPHOCYTES # (AUTO) 0.6 (1.0-3.2); LYMPHOCYTES % 16.4 % (18.0-39.1); MEAN CORPUSCULAR HEMOGLOBIN 31.1 pg (28-32); MEAN CORPUSCULAR HGB CONC 31.7 g/dL (31-35); MEAN CORPUSCULAR VOLUME 98.1 fL (81-99); MONOCYTES # (AUTO) 0.5 (0.2-0.8); MONOCYTES % 13.7 % (4.4-11.3); NEUTROPHILS # (AUTO) 2.5 (2.1-6.9); NEUTROPHILS % 67.7 % (38.7-80.0); PLATELET COUNT 146 x10e3/uL (140-360); RED CELL DISTRIBUTION WIDTH 12.6 % (11.7-14.4)
[2022-08-02 06:09] LABS: ALBUMIN 2.7 g/dL (3.5-5.0); ALBUMIN/GLOBULIN RATIO 0.8 (0.8-2.0); ANION GAP 15.9 mmol/L (8-16); CALCIUM 8.7 mg/dL (8.4-10.2); CREATININE, SERUM 1.74 mg/dL (0.72-1.25); MAGNESIUM 1.6 MG/DL (1.3-2.1); POTASSIUM 3.9 mmol/L (3.5-5.1)
[2022-08-02] MEDS: INSULIN LISPRO 100 UNIT/1 ML 3ML VIAL SQ SCH ×4 (07:30→19:59)
[2022-08-02] MEDS ORDERED: MAGNESIUM SULFATE 2GM/50ML 50 ML IV ONE (08:00)
[2022-08-02 08:07] LABS: CREATININE,URINE RANDOM 63.78 mg/dL (63-166); TOTAL PROTEIN, URINE 190.9 mg/dL (1-14)
[2022-08-02] MEDS: OMEGA 3 POLYUNSAT FATTY ACIDS 1000 MG SOFTGEL PO SCH (08:22)
[2022-08-02] MEDS: AMLODIPINE BESYLATE 5 MG TAB PO SCH ×2 (08:22→17:22)
[2022-08-02] MEDS: ALLOPURINOL 100 MG TAB PO SCH (08:22)
[2022-08-02] MEDS: RIVASTIGMINE PATCH 4.6MG/24 HOURS PATCH TD SCH (08:22)
[2022-08-02] MEDS ORDERED: THIAMINE HCL INJ 100 MG/ML 2ML VIAL IV SCH (09:00)
[2022-08-02] MEDS: AMIODARONE HCL 200 MG TAB PO SCH (17:18)
[2022-08-02] MEDS ORDERED: SODIUM CHLORIDE 0.9% 250ML 250 ML ONE (20:22)
[2022-08-02] MEDS: TAMSULOSIN HCL 0.4 MG CAP PO SCH (20:54)
[2022-08-03] VITALS (13 sets, daily range): BP systolic 125–173; BP diastolic 67–84; PULSE 50–104; RESP 16–20; TEMP 97.9–99.2; O2SAT 95–100
[2022-08-03 05:49] LABS: BASOPHILS % 0.3 % (0.0-1.0); EOSINOPHILS % 1.1 % (0.0-6.0); HEMATOCRIT 26.3 % (38.2-49.6); HEMOGLOBIN 8.3 g/dL (14.0-18.0); LYMPHOCYTES # (AUTO) 0.5 (1.0-3.2); LYMPHOCYTES % 12.4 % (18.0-39.1); MEAN CORPUSCULAR HEMOGLOBIN 30.7 pg (28-32); MEAN CORPUSCULAR HGB CONC 31.6 g/dL (31-35); MEAN CORPUSCULAR VOLUME 97.4 fL (81-99); MONOCYTES # (AUTO) 0.4 (0.2-0.8); MONOCYTES % 11.1 % (4.4-11.3); NEUTROPHILS # (AUTO) 2.8 (2.1-6.9); NEUTROPHILS % 74.6 % (38.7-80.0); PLATELET COUNT 147 x10e3/uL (140-360); RED CELL DISTRIBUTION WIDTH 12.3 % (11.7-14.4)
[2022-08-03 06:23] LABS: ALBUMIN 2.5 g/dL (3.5-5.0); ALBUMIN/GLOBULIN RATIO 0.8 (0.8-2.0); ANION GAP 16.9 mmol/L (8-16); CALCIUM 8.6 mg/dL (8.4-10.2); CREATININE, SERUM 1.79 mg/dL (0.72-1.25); POTASSIUM 3.9 mmol/L (3.5-5.1)
[2022-08-03] MEDS: INSULIN LISPRO 100 UNIT/1 ML 3ML VIAL SQ SCH ×4 (07:30→20:04)
[2022-08-03] MEDS: AMLODIPINE BESYLATE 5 MG TAB PO SCH ×2 (09:17→17:16)
[2022-08-03] MEDS: AMIODARONE HCL 200 MG TAB PO SCH ×2 (09:18→17:16)
[2022-08-03] MEDS: OMEGA 3 POLYUNSAT FATTY ACIDS 1000 MG SOFTGEL PO SCH (09:18)
[2022-08-03] MEDS: ALLOPURINOL 100 MG TAB PO SCH (09:18)
[2022-08-03] MEDS: RIVASTIGMINE PATCH 4.6MG/24 HOURS PATCH TD SCH (09:24)
[2022-08-03] MEDS: CARVEDILOL 3.125 MG TAB PO SCH (17:18)
[2022-08-03] MEDS: TAMSULOSIN HCL 0.4 MG CAP PO SCH (20:26)
[2022-08-03] MEDS ORDERED: MELATONIN 3 MG TAB PO ONE (22:15)
[2022-08-04] VITALS (11 sets, daily range): BP systolic 131–148; BP diastolic 60–79; PULSE 61–81; RESP 16–20; TEMP 97.6–98.9; O2SAT 95–100
[2022-08-04 05:20] LABS: EOSINOPHILS # (AUTO) 0.1 (0.0-0.4); EOSINOPHILS % 1.8 % (0.0-6.0); HEMATOCRIT 26.5 % (38.2-49.6); HEMOGLOBIN 8.2 g/dL (14.0-18.0); LYMPHOCYTES # (AUTO) 0.6 (1.0-3.2); LYMPHOCYTES % 18.2 % (18.0-39.1); MEAN CORPUSCULAR HEMOGLOBIN 30.4 pg (28-32); MEAN CORPUSCULAR HGB CONC 30.9 g/dL (31-35); MEAN CORPUSCULAR VOLUME 98.1 fL (81-99); MONOCYTES # (AUTO) 0.4 (0.2-0.8); MONOCYTES % 11.5 % (4.4-11.3); NEUTROPHILS # (AUTO) 2.3 (2.1-6.9); NEUTROPHILS % 68.2 % (38.7-80.0); PLATELET COUNT 144 x10e3/uL (140-360); RED CELL DISTRIBUTION WIDTH 12.3 % (11.7-14.4)
[2022-08-04 05:46] LABS: ANION GAP 16.4 mmol/L (8-16); CALCIUM 8.6 mg/dL (8.4-10.2); CREATININE, SERUM 1.89 mg/dL (0.72-1.25); POTASSIUM 4.4 mmol/L (3.5-5.1)
[2022-08-04] MEDS ORDERED: BUMETANIDE INJ 0.25MG/ML 4ML VIAL IV ONE (08:30)
[2022-08-04] MEDS: RIVASTIGMINE PATCH 4.6MG/24 HOURS PATCH TD SCH (08:49)
[2022-08-04] MEDS: AMLODIPINE BESYLATE 5 MG TAB PO SCH ×2 (08:52→17:12)
[2022-08-04] MEDS: ALLOPURINOL 100 MG TAB PO SCH (08:52)
[2022-08-04] MEDS: AMIODARONE HCL 200 MG TAB PO SCH ×2 (08:53→17:12)
[2022-08-04] MEDS: LACTULOSE SYRUP 20 GM/30 ML UDC PO SCH ×2 (08:53→17:00)
[2022-08-04] MEDS: CARVEDILOL 3.125 MG TAB PO SCH ×2 (08:53→17:13)
[2022-08-04] MEDS: OMEGA 3 POLYUNSAT FATTY ACIDS 1000 MG SOFTGEL PO SCH (08:53)
[2022-08-04] MEDS: INSULIN LISPRO 100 UNIT/1 ML 3ML VIAL SQ SCH ×4 (09:13→21:11)
[2022-08-04] MEDS: NYSTATIN 15 GM POWDER UD BTL TOP SCH ×2 (12:43→21:04)
[2022-08-04] MEDS ORDERED: AZITHROMYCIN 250 MG TAB PO SCH (17:00)
[2022-08-04] MEDS: NYSTATIN 100,000 UNITS/GM CRM 30GM TUBE TOP SCH (17:14)
[2022-08-04] MEDS ORDERED: MELATONIN 3 MG TAB PO SCH (21:00)
[2022-08-04] MEDS: TAMSULOSIN HCL 0.4 MG CAP PO SCH (21:03)
[2022-08-05 00:32] VITALS: BP 133/85; PULSE 69; RESP 18; TEMP 98.5; O2SAT 100
[2022-08-05 04:00] VITALS: BP 149/68; PULSE 70; RESP 18; TEMP 98.4; O2SAT 99
[2022-08-05] MEDS: NYSTATIN 15 GM POWDER UD BTL TOP SCH (05:51)
[2022-08-05] MEDS: INSULIN LISPRO 100 UNIT/1 ML 3ML VIAL SQ SCH (07:30)
[2022-08-05 08:00] VITALS: BP 151/70; PULSE 74; RESP 18; TEMP 98.4; O2SAT 100
[2022-08-05 08:22] VITALS: BP 146/66; PULSE 83; RESP 17; TEMP 98.4; O2SAT 97
[2022-08-05] MEDS: LACTULOSE SYRUP 20 GM/30 ML UDC PO SCH (09:00)
[2022-08-05] MEDS ORDERED: ALLOPURINOL100 MG PO (09:19)
[2022-08-05] MEDS ORDERED: VITAMIN B-1100 M1 PO (09:19)
[2022-08-05] MEDS ORDERED: LACTULOSE20 GM/30 M PO (09:19)
[2022-08-05] MEDS ORDERED: AMIODARONE HCL200 MG PO (09:19)
[2022-08-05] MEDS ORDERED: FLOMAX0.4 MG PO (09:19)
[2022-08-05] MEDS ORDERED: NORVASC5 MG PO (09:19)
[2022-08-05] MEDS ORDERED: EXELON1 EACH TD (09:19)
[2022-08-05] MEDS ORDERED: COREG3.125 MG PO (09:19)
[2022-08-05] MEDS: AMIODARONE HCL 200 MG TAB PO SCH (09:47)
[2022-08-05] MEDS: ALLOPURINOL 100 MG TAB PO SCH (09:47)
[2022-08-05] MEDS: CARVEDILOL 3.125 MG TAB PO SCH (09:49)
[2022-08-05] MEDS: AMLODIPINE BESYLATE 5 MG TAB PO SCH (09:49)
[2022-08-05] MEDS: OMEGA 3 POLYUNSAT FATTY ACIDS 1000 MG SOFTGEL PO SCH (09:49)
[2022-08-05] MEDS: RIVASTIGMINE PATCH 4.6MG/24 HOURS PATCH TD SCH (09:49)
[2022-08-05] MEDS: NYSTATIN 100,000 UNITS/GM CRM 30GM TUBE TOP SCH (09:50)
[2022-08-05 12:10] VITALS: BP 151/70; PULSE 74; RESP 18; TEMP 98.4; O2SAT 100
[2022-08-05] MEDS ORDERED: NYSTATIN15 G2 TOP (12:26)
[2022-08-06] MEDS ORDERED: PANTOPRAZOLE SOD 40 MG TABEC PO SCH (07:30)
[2022-08-06] MEDS ORDERED: THIAMINE HCL 100 MG TAB PO SCH (09:00)
== END 2022-08-05 13:07 | disposition home or self-care (01) | DRG 291 ==
LOC: FSED 17:45 → ERHOLD 21:00 → MED/SURG3 22:18 → ICU 07-29 02:43 → MED/SURG 08-02 13:25
PROVIDERS: ADMIT Internal Medicine; ATTEND Internal Medicine
PROC: 0W9B3ZX Drainage of Left Pleural Cavity, Percutaneous Approach, Diagnostic (ICD-10-PCS; principal; 2022-07-29)
DX: I13.0 Hypertensive heart and chronic kidney disease with heart failure and stage 1 through stage 4 chronic kidney disease, or unspecified chronic kidney disease (principal); G93.41 Metabolic encephalopathy; I50.33 Acute on chronic diastolic (congestive) heart failure; J96.21 Acute and chronic respiratory failure with hypoxia; J96.22 Acute and chronic respiratory failure with hypercapnia; J90 Pleural effusion, not elsewhere classified; N17.9 Acute kidney failure, unspecified; E87.29 Other acidosis; Q27.30 Arteriovenous malformation, site unspecified; K50.90 Crohn's disease, unspecified, without complications; T50.8X5A Adverse effect of diagnostic agents, initial encounter; N18.32 Chronic kidney disease, stage 3b; C67.9 Malignant neoplasm of bladder, unspecified; R91.1 Solitary pulmonary nodule; R60.9 Edema, unspecified; I35.0 Nonrheumatic aortic (valve) stenosis; R91.8 Other nonspecific abnormal finding of lung field; E11.42 Type 2 diabetes mellitus with diabetic polyneuropathy; E11.22 Type 2 diabetes mellitus with diabetic chronic kidney disease; N14.11 Contrast-induced nephropathy; D69.6 Thrombocytopenia, unspecified; F01.A0 Vascular dementia, mild, without behavioral disturbance, psychotic disturbance, mood disturbance, and anxiety; E11.51 Type 2 diabetes mellitus with diabetic peripheral angiopathy without gangrene; E78.00 Pure hypercholesterolemia, unspecified; G47.33 Obstructive sleep apnea (adult) (pediatric); N40.1 Benign prostatic hyperplasia with lower urinary tract symptoms; M25.531 Pain in right wrist; R33.8 Other retention of urine; R53.1 Weakness; E53.8 Deficiency of other specified B group vitamins; N32.9 Bladder disorder, unspecified; I48.91 Unspecified atrial fibrillation; Z20.822 Contact with and (suspected) exposure to COVID-19; Y92.89 Other specified places as the place of occurrence of the external cause; Z79.899 Other long term (current) drug therapy; Z85.118 Personal history of other malignant neoplasm of bronchus and lung; Z90.2 Acquired absence of lung [part of]; Z85.51 Personal history of malignant neoplasm of bladder; Z86.73 Personal history of transient ischemic attack (TIA), and cerebral infarction without residual deficits; Z99.81 Dependence on supplemental oxygen; Z87.891 Personal history of nicotine dependence; Z82.49 Family history of ischemic heart disease and other diseases of the circulatory system; Z79.4 Long term (current) use of insulin
CPT/HCPCS: 0223U; 32555; 36415; 36600; 70450; 70551; 71045; 71250; 74470; 76770; 80048; 80053; 81001; 81003; 82140; 82553; 82570; 82607; 82805; 82948; 83615; 83690; 83735; 83880; 84100; 84156; 84157; 84443; 84484; 84550; 85025; 85610; 85730; 87070; 87205; 88112; 88300; 88305; 88342; 89051; 92950; 93005; 94640; 94660; 94760; 94799; 95819; 99252; 99284; J0696; J1940; J3411; J3475; J7050; J7070

== ENCOUNTER 2023-09-26 00:04 | Emergency (ER) | payer MEDICARE, BC ==
[~2023-09-26] VITALS: Ht 325.1 cm; Wt 78.9 kg
[~2023-09-26 00:04] MED LIST changes: +ALLOPURINOL100 MG PO; +AMIODARONE HCL200 MG PO; +COREG3.125 MG PO; +EXELON1 EACH TD; +FLOMAX0.4 MG PO; +LACTULOSE20 GM/30 M PO; +NORVASC5 MG PO; +NYSTATIN15 G2 TOP; +VITAMIN B-1100 M1 PO
[2023-09-26] MEDS ORDERED: SODIUM CHLORIDE FLUSH 10 ML SYR INJ PRN (00:15)
[2023-09-26] MEDS ORDERED: SODIUM CHLORIDE 0.9% 1000ML 1,000 ML IV ONE (00:15)
[2023-09-26] MEDS: ONDANSETRON HCL INJ 2MG/ML 2ML 2 MG/ML VIAL IV STA (00:25)
[2023-09-26] MEDS: Morphine 2mg Syringe 2 MG/ML SYR IV ONE ×3 (00:49→05:39)
[2023-09-26 00:55] LABS: HEMATOCRIT 32.9 % (38.2-49.6); HEMOGLOBIN 10.4 g/dL (14.0-18.0); LYMPHOCYTES # (AUTO) 0.4 (1.0-3.2); LYMPHOCYTES % 7.7 % (18.0-39.1); MEAN CORPUSCULAR HEMOGLOBIN 29.3 pg (28-32); MEAN CORPUSCULAR HGB CONC 31.6 g/dL (31-35); MEAN CORPUSCULAR VOLUME 92.7 fL (81-99); MONOCYTES # (AUTO) 0.2 (0.2-0.8); NEUTROPHILS # (AUTO) 4.2 (2.1-6.9); NEUTROPHILS % 87.9 % (38.7-80.0); PLATELET COUNT 127 x10e3/uL (140-360); RED BLOOD COUNT 3.55 x10e6/uL (4.3-5.7); RED CELL DISTRIBUTION WIDTH 14.1 % (11.7-14.4)
[2023-09-26] MEDS: HALOPERIDOL LACTATE 5 MG/ML VIAL IV ONE (01:08)
[2023-09-26 01:11] LABS: ALBUMIN 3.3 g/dL (3.5-5.0); ALBUMIN/GLOBULIN RATIO 0.9 (0.8-2.0); ANION GAP 21.7 mmol/L (8-16); BILIRUBIN,TOTAL 0.5 mg/dL (0.2-1.2); CALCIUM 8.5 mg/dL (8.4-10.2); CREATININE, SERUM 6.35 mg/dL (0.72-1.25); POTASSIUM 3.7 mmol/L (3.5-5.1)
[2023-09-26 01:23] LABS: TROPONIN I < 0.05 ng/mL (0.0-0.40)
[2023-09-26 01:28] LABS: LIPASE 14 U/L (8-78)
[2023-09-26 02:26] LABS: INR 1.4; PARTIAL THROMBOPLASTIN TIME 39.4 seconds (23.8-35.5); PROTHROMBIN TIME 17.9 seconds (11.9-14.5)
[2023-09-26] MEDS: SODIUM CHLORIDE 0.9% 1000ML 1,000 ML IV SCH (02:48)
[2023-09-26 05:20] VITALS: PULSE 87; RESP 17; TEMP 98.2; O2SAT 99
[2023-09-26] MEDS: METRONIDAZOLE 500MG/NS 100ML 100 ML IV ONE (05:38)
== END 2023-09-26 06:31 | disposition other institution (70) ==
LOC: ER 00:10
DX: R11.2 Nausea with vomiting, unspecified (principal); U07.1 COVID-19; K55.9 Vascular disorder of intestine, unspecified; N17.9 Acute kidney failure, unspecified; E11.65 Type 2 diabetes mellitus with hyperglycemia; I10 Essential (primary) hypertension; E78.5 Hyperlipidemia, unspecified; D64.9 Anemia, unspecified; Z86.73 Personal history of transient ischemic attack (TIA), and cerebral infarction without residual deficits; Z85.51 Personal history of malignant neoplasm of bladder; Z85.118 Personal history of other malignant neoplasm of bronchus and lung; R94.31 Abnormal electrocardiogram [ECG] [EKG]
CPT/HCPCS: 0223U; 36415; 71045; 74176; 80053; 82150; 83690; 83880; 84484; 85025; 85610; 85730; 93005; 99284; J1630; J2270; J2405; J2470; J2543; J7030